=== PATIENT | male | born 1955 | race Caucasian/White ===

== ENCOUNTER 2016-07-26 09:13 | Emergency (ER) | payer MEDICARE ==
[2016-07-26] MEDS ORDERED: LIDOCAINE 2% URO-JET 5 ML SYRINGE UR ONE (11:36)
--- NOTE | 2016-07-26 11:40 | ED Physician Documentation ---
History of Present Illness - Stated complaint Stated Complaint: BACK/LEG PX - Chief complaint Chief Complaint: Back Pain - Additonal information Additional information: hx from pt 60 male prior L spine injury when fell off barn age 10 had work up including MRI and was given spinal injections about a month ago and was doing well recently a week ago slid off bed in his trailer and hit his right SI buttock region an a corner since then pain to that region radiating down posterior leg to the knee now he cannot ruinate since last night no abd pain no saddle anesthesia baseline neuropathy knees down charles but no change no weakness Review of Systems Constitutional: denies: Fever, Chills Cardiac: denies: Chest pain / pressure GI: denies: Abdominal Pain : reports: Unable to Void. denies: Dysuria Musculoskeletal: reports: Back pain Neurologic: reports: Numbness (no change baseline neuropathy). denies: Generalized weakness, Focal weakness Endocrine: denies: Easy bruising / bleeding Immunocompromised: denies: Immunocompromised PD PAST MEDICAL HISTORY - Past Medical History Cardiovascular: Hypertension, High cholesterol, Coronary artery disease Endocrine/Autoimmune: Type 2 diabetes Musculoskeletal: Osteoarthritis - Past Surgical History Ortho: Shoulder arthroplasty Cardiovascular: CABG - Present Medications Home Medications: Ambulatory Orders Medication Instructions Recorded Confirmed Atorvastatin [Lipitor] 10 mg PO DAILY 07/26/16 07/26/16 Hydrochlorothiazide 25 mg PO DAILY 07/26/16 07/26/16 Insulin Glargine,Hum.rec.anlog 10 units SUBQ DAILY 07/26/16 07/26/16 [Lantus] Lidocaine Patch 5% [Lidoderm Patch] 1 each TOP DAILY PRN #10 patch 07/26/16 Lisinopril 10 mg PO BID 07/26/16 07/26/16 Oxycodone HCl 10 mg PO BID 07/26/16 07/26/16 Pantoprazole [Protonix] 40 mg PO DAILY 07/26/16 07/26/16 amLODIPine [Norvasc] 5 mg PO DAILY 07/26/16 07/26/16 metFORMIN [Glucophage] 500 mg PO BID 07/26/16 07/26/16 predniSONE [Deltasone] 40 mg PO DAILY 5 Days 07/26/16 - Allergies Allergies/Adverse Reactions: Allergies Allergy/AdvReac Type Severity Reaction Status Date / Time No Known Drug Allergies Allergy Verified 07/26/16 09:20 - Social History Does the pt smoke?: No Smoking Status: Never smoker Does the pt drink ETOH?: Yes ETOH Use: Beer Does the pt have substance abuse?: No Substance Use and Type: Marijuana - Immunizations Immunizations are current?: Yes PD ED PE NORMAL - Vitals Vital signs reviewed: Yes - General General: Alert and oriented X 3 - HEENT HEENT: Atraumatic, PERRL - Cardiac Cardiac: RRR - Respiratory Respiratory: No respiratory distress, Clear bilaterally - Abdomen Abdomen: Soft, Non tender, Other (no pulsatile mass) - Back Back: No spinal TTP, Other (TTP R SI region, no focal spine TTP swelling or erythema) - Extremities Extremities: No deformity - Neuro Neuro: No motor deficit, No sensory deficit (flex knee ext foot dorsi plantar and great toe ext 5/5, patelar DTR 1+/4 charles, no clonus, neg SLR charles, baseline dec sensation knees down) - Psych Psych: Normal mood Results - Vitals Vitals: Vital Signs - 24 hr 07/26/16 07/26/16 09:17 13:36 Temperature 36.6 C Heart Rate 59 L 55 L Respiratory 14 18 Rate Blood Pressure 105/70 116/75 O2 Saturation 100 100 Oxygen O2 Source Room air - Labs Labs: Laboratory Tests 07/26/16 14:00 Urine Color YELLOW Urine Clarity CLEAR Urine pH 6.0 Ur Specific Jones 1.010 Urine Protein NEGATIVE Urine Glucose (UA) NEGATIVE Urine Ketones NEGATIVE Urine Occult Blood NEGATIVE Urine Nitrite NEGATIVE Urine Bilirubin NEGATIVE Urine Urobilinogen 0.2 (NORMAL) Ur Leukocyte Esterase NEGATIVE Ur Microscopic Review NOT INDICATED Urine Culture Comments NOT INDICATED - Rads (name of study) CT L spine Radiology: See rad report (no acute, 9 mm ant listhesis L45 2/2 charles L4 spondylosis. degen disk and facet dz most severe L45, diffuse disk and facet dz most severe L45, diffuse disk bulging and listhesis results in severe right and mod left L45 foraminal stenosis and mild central canal stenosis, gallstones, ectstic 2.8 cm aorta) CT pelvis Radiology: See rad report (no acute fx, L45 9 mm anterolistehsis with charles L4 pars interarticularis defects with broad based disk bulging causing moderate cenral stenosis ad moderate formaminal norrowing, [id number] midly sclerotic lesion with lucent rim left medial iliac bone without corticol erosion indet and likely benign, degen changes L spine SI jt, pubic symphysis and both hips) PD MEDICAL DECISION MAKING - ED course ED course: MRI not avaial got CT per rad to [place] on CT dc with gonzalez, urology fup, lido patch + home pain meds Departure - Departure Disposition: 01 Home, Self Care Clinical Impression: Urinary retention Back pain Qualifiers: Back pain location: low back pain Chronicity: acute Back pain laterality: right Sciatica presence: with sciatica Sciatica laterality: sciatica of right side Qualified Code(s): M54.41 - Lumbago with sciatica, right side Sciatica Qualifiers: Laterality: right Qualified Code(s): M54.31 - Sciatica, right side Instructions: ED Retention Urinary Male, ED Catheter Care Gonzalez, ED Sciatica Follow-Up: Bry Butt MD [Physician No Access] - (or ask your PMD to give you a referral to a urologist down in [place]) Prescriptions: predniSONE [Deltasone] 40 mg PO DAILY 5 Days Lidocaine Patch 5% [Lidoderm Patch] 1 each TOP DAILY PRN #10 patch PRN Reason: Pain Comments: The CT scans showed extensive degenerative changes, herniated disks, nerve impingement but no major compressions of the cord or nerves in the spinal canal. And there is no pelvic fracture. I am not sure why you cannot urinate But since you cannot urinate I recommend the catheter stay in until you have seen the urologist for further evaluation For the back pain and sciatica I recommend a course of steroids and lidocaine patches in addition to the oxycodone you already take The steroids may cause your blood sugar to run high than normal but this will resolve when you come off the steroids Forms: Activity restrictions Discharge Date/Time: 07/26/16 14:10
--- NOTE | 2016-07-26 12:53 | CT Preliminary Report ---
Exam: CT Pelvis W/O IMPRESSION: 1. No acute fracture. 2. L4-L5 grade 2, 9 mm anterolisthesis with bilateral L4 pars interarticularis defects, with broad-ba sed disk bulging causing moderate central stenosis and moderate foraminal narrowing. 3. There is a 6 x 8 x 8 mm mildly sclerotic lesion with lucent rim in the left medial iliac bone jess cent to the SI joint without cortical erosion, of indeterminate nature although probably benign. 4. Degenerative changes in the lumbar spine, sacroiliac joints, pubic symphysis and both hips. [facility] SITE ID: [id number]
--- NOTE | 2016-07-26 12:56 | CT Report ---
EXAM: CT BONY PELVIS WITHOUT CONTRAST EXAM DATE: 07/26/2016 12:17 PM. CLINICAL HISTORY: Fall. R SI pain, cannot urinate. COMPARISON: None. TECHNIQUE: Thin-section axial images were acquired of the pelvis without contrast. Post-processing: C oronal and sagittal reformats. Other: None. In accordance with CT protocol optimization, one or more of the following dose reduction techniques w ere utilized for this exam: automated exposure control, adjustment of mA and/or KV based on patient s ize, or use of iterative reconstructive technique. FINDINGS: Bones: No acute fracture. L4-L5 grade 2, 9 mm anterolisthesis with bilateral L4 pars interarticularis defects, with broad-based disk bulging causing moderate central stenosis and moderate foraminal narr owing. L4-5 disk space narrowing and chronic reactive endplate changes with extensive sclerosis. Ther e is a 6 x 8 x 8 mm mildly sclerotic lesion with lucent rim in the left medial iliac bone adjacent to the SI joint without cortical erosion, of indeterminate nature although probably benign. Sacroiliac Joints: Bilateral mild degenerative changes with a small air-containing cyst in the iliac side of the cortex. No widening or significant joint effusion. Symphysis Pubis: Mild degenerative changes. Right Hip: Mild osteoarthritis with mild joint space narrowing. Left Hip: Mild osteoarthritis with mild joint space narrowing. Musculature: Normal. No fatty atrophy. Pelvic Cavity: The visualized bowel, bladder, and reproductive organs are unremarkable on this noncon trast exam. Jean catheter in situ. Other: No lymphadenopathy. No free air or free fluid. The other visualized soft tissues are unremarka ble. IMPRESSION: 1. No acute fracture. 2. L4-L5 grade 2, 9 mm anterolisthesis with bilateral L4 pars interarticularis defects, with broad-ba sed disk bulging causing moderate central stenosis and moderate foraminal narrowing. 3. There is a 6 x 8 x 8 mm mildly sclerotic lesion with lucent rim in the left medial iliac bone jess cent to the SI joint without cortical erosion, of indeterminate nature although probably benign. 4. Degenerative changes in the lumbar spine, sacroiliac joints, pubic symphysis and both hips. [facility] Referring Provider Line: [phone] SITE ID: [id number]
--- NOTE | 2016-07-26 12:57 | CT Preliminary Report ---
Exam: CT Lumbar Spine W/O IMPRESSION: 1. No definite acute abnormality. 2. 9 mm anterior listhesis at L4-L5 secondary to bilateral L4 spondylolysis. 3. Degenerative disk and facet disease, most severe at L4-L5. 4. Diffuse disk bulging/uncovering and the listhesis results in severe right and moderate to severe l eft L4-L5 neural foraminal stenosis and mild central canal stenosis. 5. Cholelithiasis. 6. Infrarenal abdominal aortic ectasia, 2.8 cm. [facility] SITE ID: [id number]
--- NOTE | 2016-07-26 13:00 | CT Report ---
EXAM: CT LUMBAR SPINE WITHOUT CONTRAST EXAM DATE: 07/26/2016 12:17 PM. CLINICAL HISTORY: Fall back pain urinary retention. COMPARISONS: None. TECHNIQUE: Thin-section axial images were acquired of the lumbar spine from T12 to S1 without contras t. Post-processing: Coronal and sagittal reformats. Other: None. In accordance with CT protocol optimization, one or more of the following dose reduction techniques w ere utilized for this exam: automated exposure control, adjustment of mA and/or KV based on patient s ize, or use of iterative reconstructive technique. FINDINGS: Alignment: No scoliosis. 9 mm anterolisthesis at L4-L5 associated with chronic bilateral spondylolysi s. Bones: Five yem-yha-pwspwwl lumbar vertebral bodies are present. Bilateral L4 spondylolysis. No acute fractures or definite acute bone lesions. 9 mm sclerotic nodule within the posterior right T12 verte bral body may represent incidental finding such as a bone island although it is not specific. If ther e were history of primary malignancy or other reason for clinical concern, bone scan imaging or MR im aging would be recommended. Disk Levels/Facets: Severe L4-L5 disk space narrowing and substantial associated degenerative endplate change and vertebr al body spurring. Broad disk bulging and calcification and disk uncovering with associated listhesis results in severe right and moderate to severe left neural foraminal stenosis and mild central canal stenosis. Mild disk bulging at L5-S1. Olxc-ah-bijrxdmq L2-3 vertebral body spurring. Degenerative/hypertrophic facet disease, greatest at L3-L4 and L4-L5. L5-S1: Unremarkable. Musculature: Normal. No fatty atrophy. Other: Substantial aortic and arterial atherosclerotic calcifications. Proximal, infrarenal abdominal aortic ectasia, maximum diameter 2.8 cm. Cholelithiasis demonstrated. Colonic diverticulosis without evidence of diverticulitis. IMPRESSION: 1. No definite acute abnormality. 2. 9 mm anterior listhesis at L4-L5 secondary to bilateral L4 spondylolysis. 3. Degenerative disk and facet disease, most severe at L4-L5. 4. Diffuse disk bulging/uncovering and the listhesis results in severe right and moderate to severe l eft L4-L5 neural foraminal stenosis and mild central canal stenosis. 5. Cholelithiasis. 6. Infrarenal abdominal aortic ectasia, 2.8 cm. [facility] Referring Provider Line: [phone] SITE ID: [id number]
[2016-07-26 13:36] VITALS: BP 116/75
[2016-07-26 14:20] LABS: BILIRUBIN,URINE NEGATIVE (NEGATIVE)
[2016-07-26 14:23] LABS: UA CHARGE (STRIP ONLY) YES; UR CULTURE IF IND NOT INDICATED
== END 2016-07-26 14:10 | disposition home or self-care (01) ==
LOC: ED 09:13
DX: R33.9 Retention of urine, unspecified (principal); M54.41 Lumbago with sciatica, right side; I10 Essential (primary) hypertension; E78.00 Pure hypercholesterolemia, unspecified; I25.10 Atherosclerotic heart disease of native coronary artery without angina pectoris; E11.9 Type 2 diabetes mellitus without complications; Z79.4 Long term (current) use of insulin; Z79.84 Long term (current) use of oral hypoglycemic drugs; M19.90 Unspecified osteoarthritis, unspecified site
CPT/HCPCS: 51702; 51798; 72131; 72192; 81001; 81003; 87086; 99283; 99284

== ENCOUNTER 2017-07-17 10:26 | Outpatient (CLI) | payer MEDICARE ==
[2017-07-17 12:41] LABS: BASOPHILS # (AUTO) 0.1 10^3/uL (0.0-0.1); BASOPHILS % (AUTO) 1.3 %; EOSINOPHILS # (AUTO) 0.3 10^3/uL (0.0-0.7); HGB - HEMOGLOBIN 13.2 g/dL (14.0-18.0); LYMPHOCYTES # (AUTO) 1.4 10^3/uL (1.5-3.5); LYMPHOCYTES % (AUTO) 20.4 %; MEAN CORPUSCULAR HEMOGLOBIN 30.8 pg (27.0-31.0); MEAN CORPUSCULAR HGB CONC 34.1 g/dL (32.0-36.0); MEAN CORPUSCULAR VOLUME 90.2 fL (80.0-94.0); MEAN PLATELET VOLUME 8.3 fL (7.4-11.4); MONOCYTES # (AUTO) 0.5 10^3/uL (0.0-1.0); MONOCYTES % (AUTO) 7.4 %; NEUTROPHILS # (AUTO) 4.4 10^3/uL (1.5-6.6); NEUTROPHILS % (AUTO) 65.9 %; PLT - PLATELET COUNT 152 10^3/uL (130-450); RED CELL DISTRIBUTION WIDTH 12.8 % (12.0-15.0); WHITE BLOOD COUNT 6.6 x10^3/uL (4.8-10.8)
[2017-07-17 14:30] LABS: ALBUMIN 4.4 g/dL (3.2-5.5); ALBUMIN/GLOBULIN RATIO 1.7 (1.0-2.2); BILIRUBIN,TOTAL 0.6 mg/dL (0.2-1.0); CALCIUM 8.9 mg/dL (8.5-10.3); CREATININE 1.1 mg/dL (0.6-1.2)
== END 2017-07-17 10:27 | disposition home or self-care (01) ==
LOC: LAB.WCP 10:26
PROVIDERS: ATTEND Family Medicine
DX: R10.9 Unspecified abdominal pain (principal)
CPT/HCPCS: 36415; 80053; 85025; 87086

== ENCOUNTER 2017-07-18 09:03 | Outpatient (CLI) | payer MEDICARE ==
--- NOTE | 2017-07-19 15:06 | CT Report ---
EXAM: CT LUMBAR SPINE WITHOUT CONTRAST EXAM DATE: 07/18/2017 09:19 AM. CLINICAL HISTORY: Pseudomonas. Possible stenosis. History of back surgery. Low back pain prevents the patient from having an MRI. COMPARISONS: 07/26/2016 CT. TECHNIQUE: Thin-section axial images were acquired of the lumbar spine from T12 to S1 without contras t. Post-processing: Coronal and sagittal reformats. Other: None. In accordance with CT protocol optimization, one or more of the following dose reduction techniques w ere utilized for this exam: automated exposure control, adjustment of mA and/or KV based on patient s ize, or use of iterative reconstructive technique. FINDINGS: Alignment: Grade 1 anterolisthesis of L4 on L5 measures 5 mm. Bones: Five zva-aqs-ygtruvt lumbar vertebral bodies are present. No fractures. Since the prior examin ation, the patient has had an anterior and posterior fusion procedure at L4-L5 with paired posterior rods and bilateral pedicle screws, as well as an intervertebral disk spacer. There is bony union thro ugh both posterior elements, and bone formation within the L4 disk space is near completely bridging. Disk Levels/Facets: T12-L1: Unremarkable. L1-L2: Unremarkable. L2-L3: Anterior endplate spurring is present. Small foraminal area protrusions result in mild bilater al foraminal narrowing. A broad-based disk bulge results in mild spinal canal narrowing. L3-L4: A broad-based disk bulge, mild ligamentum flavum hypertrophy, and severe facet hypertrophy res ults in moderate spinal canal and moderate bilateral foraminal narrowing. L4-L5: The patient has had a laminectomy. Foraminal area protrusions result in mild to moderate bilat eral foraminal narrowing, improved compared to the prior examination. The disk height has improved co mpared to the prior examination. There is no longer spinal canal narrowing. L5-S1: Anterior endplate spurring is present. A posterior disk protrusion and mild facet hypertrophy result in mild spinal canal and mild to moderate bilateral foraminal narrowing. Musculature: Normal. No fatty atrophy. Other: Arterial calcifications indicate atherosclerosis. IMPRESSION: 1. Grade 1 anterolisthesis of L4 on L5. 2. Interval fusion procedure at L4-L5 with bony union. The disk height has improved and spinal canal narrowing has resolved. The mild to moderate bilateral foraminal narrowing at this level has also imp roved. 3. Mild bilateral foraminal and spinal canal narrowing at L2-L3 due to disk pathology. 4. Moderate spinal canal and bilateral foraminal narrowing at L3-L4 due to disk and posterior element degenerative changes. 5. Mild spinal canal and mild to moderate bilateral foraminal narrowing at L5-S1 due to disk and post erior element degenerative changes. [facility] Referring Provider Line: [phone] SITE ID: [id number]
== END 2017-07-18 09:04 | disposition home or self-care (01) ==
LOC: DI 09:03
PROVIDERS: ATTEND Orthopaedic Surgery Orthopaedic Surgery of the Spine
DX: M48.061 Spinal stenosis, lumbar region without neurogenic claudication (principal); M51.86 Other intervertebral disc disorders, lumbar region
CPT/HCPCS: 72131

== ENCOUNTER 2017-11-09 16:27 | Emergency (ER) | payer MEDICARE ==
[2017-11-09] MEDS ORDERED: HYDROmorphone 1 MG/ML CARPUJECT IM STA (17:12)
[2017-11-09] MEDS ORDERED: oxyCODONE/ACET 5/325 Prepack 4 PO STA (17:12)
--- NOTE | 2017-11-09 17:16 | ED Physician Documentation ---
PD HPI BACK INJURY - Stated complaint Stated Complaint: R LEG PAIN - History obtained from History obtained from: Patient, Family - History of Present Illness Location: Lower (62-year-old gentleman with chronic back pain, history of lumbar fusion had EMG testing for right lower extremity pain the other day and after the EMG had increased pain in the thigh and he cannot get comfortable. Also low back pain. No saddle anesthesia or incontinence or fevers.) Review of Systems Constitutional: denies: Fever, Chills Respiratory: denies: Dyspnea, Cough GI: denies: Abdominal Pain, Nausea, Vomiting : denies: Dysuria PD PAST MEDICAL HISTORY - Past Medical History Cardiovascular: Hypertension, High cholesterol, Coronary artery disease Endocrine/Autoimmune: Type 2 diabetes Musculoskeletal: Osteoarthritis - Past Surgical History Ortho: Shoulder arthroplasty Cardiovascular: CABG - Present Medications Home Medications: Ambulatory Orders Medication Instructions Recorded Confirmed Atorvastatin [Lipitor] 10 mg PO DAILY 07/26/16 07/26/16 Insulin Glargine,Hum.rec.anlog 10 units SUBQ DAILY 07/26/16 07/26/16 [Lantus] Lidocaine Patch 5% [Lidoderm Patch] 1 each TOP DAILY PRN #10 patch 07/26/16 Lisinopril 10 mg PO BID 07/26/16 07/26/16 Oxycodone HCl 10 mg PO BID 07/26/16 07/26/16 Pantoprazole [Protonix] 40 mg PO DAILY 07/26/16 07/26/16 amLODIPine [Norvasc] 5 mg PO DAILY 07/26/16 07/26/16 hydroCHLOROthiazide 25 mg PO DAILY 07/26/16 07/26/16 [Hydrochlorothiazide] metFORMIN [Glucophage] 500 mg PO BID 07/26/16 07/26/16 predniSONE [Deltasone] 40 mg PO DAILY 5 Days tablet 07/26/16 Oxycodone HCl/Acetaminophen 1 - 2 each PO Q6H PRN #14 tablet 11/09/17 [Percocet 5-325 mg Tablet] - Allergies Allergies/Adverse Reactions: Allergies Allergy/AdvReac Type Severity Reaction Status Date / Time No Known Drug Allergies Allergy Verified 11/09/17 16:50 - Social History Does the pt smoke?: No Smoking Status: Never smoker Does the pt drink ETOH?: Yes Does the pt have substance abuse?: No - Immunizations Immunizations are current?: Yes PD ED PE NORMAL - Vitals Vital signs reviewed: Yes - General General: Alert and oriented X 3, No acute distress - Extremities Extremities: Other (Pretty much absent right L4 reflex, left L4 reflexes diminished but not quite absent. He is hyperesthetic over the right lateral calf otherwise sensation throughout the legs is normal. No spinal tenderness.) - Neuro Neuro: Alert and oriented X 3, Normal speech Results - Vitals Vitals: Vital Signs - 24 hr 11/09/17 16:45 Temperature 36.8 C Heart Rate 63 Respiratory 16 Rate Blood Pressure 135/83 H O2 Saturation 97 Oxygen O2 Source Room air PD MEDICAL DECISION MAKING - Sepsis Event Vital Signs: Vital Signs - 24 hr 11/09/17 16:45 Temperature 36.8 C Heart Rate 63 Respiratory 16 Rate Blood Pressure 135/83 H O2 Saturation 97 Oxygen O2 Source Room air Departure - Departure Disposition: 01 Home, Self Care Clinical Impression: Sciatica Qualifiers: Laterality: right Qualified Code(s): M54.31 - Sciatica, right side Condition: Fair Record reviewed to determine appropriate education?: Yes Instructions: ED Sciatica Prescriptions: Oxycodone HCl/Acetaminophen [Percocet 5-325 mg Tablet] 1 - 2 each PO Q6H PRN # 14 tablet PRN Reason: pain Comments: Call your doctor to arrange a follow-up appointment, make the next available appointment. In the interim, return anytime if worse or if new symptoms develop.
[2017-11-09 18:01] VITALS: BP 102/80
== END 2017-11-09 17:59 | disposition home or self-care (01) ==
LOC: ED 16:27
DX: M54.31 Sciatica, right side (principal); G89.29 Other chronic pain; Z98.1 Arthrodesis status; I25.10 Atherosclerotic heart disease of native coronary artery without angina pectoris; I10 Essential (primary) hypertension; E78.00 Pure hypercholesterolemia, unspecified; E11.9 Type 2 diabetes mellitus without complications; Z79.4 Long term (current) use of insulin; Z95.1 Presence of aortocoronary bypass graft
CPT/HCPCS: 96372; 99283; J1170

== ENCOUNTER 2018-06-29 08:15 | Outpatient (CLI) | payer MEDICARE ==
[2018-06-29 08:54] LABS: CREATININE 1.3 mg/dL (0.6-1.2)
[2018-06-29 08:59] LABS: BASOPHILS # (AUTO) 0.1 10^3/uL (0.0-0.1); BASOPHILS % (AUTO) 1.7 %; EOSINOPHILS # (AUTO) 0.3 10^3/uL (0.0-0.7); EOSINOPHILS % (AUTO) 6.3 %; HGB - HEMOGLOBIN 13.9 g/dL (14.0-18.0); LYMPHOCYTES % (AUTO) 18.4 %; MEAN CORPUSCULAR HEMOGLOBIN 31.7 pg (27.0-31.0); MEAN CORPUSCULAR HGB CONC 34.4 g/dL (32.0-36.0); MEAN PLATELET VOLUME 8.3 fL (7.4-11.4); MONOCYTES # (AUTO) 0.5 10^3/uL (0.0-1.0); MONOCYTES % (AUTO) 8.4 %; NEUTROPHILS # (AUTO) 3.6 10^3/uL (1.5-6.6); NEUTROPHILS % (AUTO) 65.2 %; PLT - PLATELET COUNT 170 10^3/uL (130-450); RED BLOOD COUNT 4.39 10^6/uL (4.70-6.10); RED CELL DISTRIBUTION WIDTH 13.1 % (12.0-15.0); WHITE BLOOD COUNT 5.5 x10^3/uL (4.8-10.8)
[2018-06-29 09:02] LABS: PT - PROTHROMBIN TIME 10.7 secs (9.9-12.6)
[2018-06-29 09:03] LABS: HB2 TOTAL 15.7 g/dL; HEMOGLOBIN A1C 2.15 g/dL; HEMOGLOBIN A1C % 14.7 % (4.6-6.2)
== END 2018-06-29 08:16 | disposition home or self-care (01) ==
LOC: LAB 08:15
PROVIDERS: ATTEND Orthopaedic Surgery Orthopaedic Surgery of the Spine
DX: M54.16 Radiculopathy, lumbar region (principal); M48.062 Spinal stenosis, lumbar region with neurogenic claudication; M43.16 Spondylolisthesis, lumbar region; E11.9 Type 2 diabetes mellitus without complications; I44.7 Left bundle-branch block, unspecified
CPT/HCPCS: 36415; 80048; 83036; 85025; 85610; 93005

== ENCOUNTER 2018-07-27 15:35 | Emergency (ER) | payer MEDICARE ==
[2018-07-27] MEDS ORDERED: HYDROmorphone 1 MG/ML CARPUJECT IM STA (16:09)
[2018-07-27] MEDS ORDERED: KETOROLAC 30 MG/ML VIAL IM STA (16:10)
[2018-07-27 16:17] LABS: BILIRUBIN,URINE NEGATIVE (NEGATIVE); GLUCOSE, URINE (UA) >=1000 mg/dL (NEGATIVE); KETONES,URINE (UA) NEGATIVE (NEGATIVE); LEUKOCYTE ESTERASE, URINE NEGATIVE (NEGATIVE); NITRITE,URINE NEGATIVE (NEGATIVE); OCCULT BLOOD,URINE NEGATIVE (NEGATIVE); PROTEIN,URINE NEGATIVE (NEGATIVE); UROBILINOGEN,URINE 0.2 (NORMAL) E.U./dL (NORMAL)
[2018-07-27 16:22] LABS: CLARITY,URINE CLEAR (CLEAR)
[2018-07-27] MEDS ORDERED: HYDROmorphone 1 MG/ML CARPUJECT IVP STA ×2 (16:23→17:27)
[2018-07-27] MEDS ORDERED: KETOROLAC 30 MG/ML VIAL IVP STA (16:24)
[2018-07-27 16:33] LABS: BASOPHILS # (AUTO) 0.1 10^3/uL (0.0-0.1); BASOPHILS % (AUTO) 1.2 %; EOSINOPHILS # (AUTO) 0.3 10^3/uL (0.0-0.7); EOSINOPHILS % (AUTO) 6.8 %; LYMPHOCYTES # (AUTO) 1.3 10^3/uL (1.5-3.5); LYMPHOCYTES % (AUTO) 26.5 %; MEAN CORPUSCULAR HEMOGLOBIN 31.9 pg (27.0-31.0); MEAN CORPUSCULAR HGB CONC 34.4 g/dL (32.0-36.0); MEAN CORPUSCULAR VOLUME 92.7 fL (80.0-94.0); MEAN PLATELET VOLUME 7.6 fL (7.4-11.4); MONOCYTES # (AUTO) 0.3 10^3/uL (0.0-1.0); MONOCYTES % (AUTO) 6.5 %; PLT - PLATELET COUNT 176 10^3/uL (130-450); RED BLOOD COUNT 4.08 10^6/uL (4.70-6.10); RED CELL DISTRIBUTION WIDTH 12.8 % (12.0-15.0); WHITE BLOOD COUNT 5.1 x10^3/uL (4.8-10.8)
[2018-07-27 16:45] LABS: ALBUMIN 4.1 g/dL (3.2-5.5); ALBUMIN/GLOBULIN RATIO 1.6 (1.0-2.2); ALKALINE PHOSPHATASE 45 IU/L (42-121); ALT ALANINE AMINOTRANSFERASE 19 IU/L (10-60); AST ASPARTATE AMINOTRANSFERASE 25 IU/L (10-42); BILIRUBIN,TOTAL 0.8 mg/dL (0.2-1.0); BUN - BLOOD UREA NITROGEN 14 mg/dL (6-20); CALCIUM 8.9 mg/dL (8.5-10.3); CARBON DIOXIDE - CO2 26 mmol/L (21-32); CHLORIDE 97 mmol/L (101-111); CREATININE 1.1 mg/dL (0.6-1.2); GFR - MDRD 67 (>89); GLUCOSE 324 mg/dL (70-100); LIPASE 108 U/L (22-51); MAGNESIUM 1.9 mg/dL (1.7-2.8); SODIUM 134 mmol/L (135-145); TOTAL PROTEIN 6.7 g/dL (6.7-8.2)
--- NOTE | 2018-07-27 16:51 | ED Physician Documentation ---
PD HPI Fall - Stated complaint Stated Complaint: BACK PAIN/FALLING ASLEEP - Chief complaint Chief Complaint: General - History obtained from History obtained from: Patient, Family - History of Present Illness Mechanism of injury: Lost balance (when he stepped in a hole. Not aware of striking head. Pain in right hip on which he landed, and increased pain over baseline in low back, where he has chronic pain.). No: Syncope Fall distance: Standing position Where injury occurred: Home Timing - onset: How many days ago (2) Injury(ies) location: Back, Right Lower Extremity (lateral and posterior hip). No: Head, Chest, Abdomen Quality of pain: Throbbing, Aching Associated symptoms: AMS ( says he has been sleepy and "lethargic" (tired) the past couple of days. he denies headache.). No: LOC, Neck pain, Weakness, Paresthesias, Dyspnea Symptoms improve with: Rest Worsens with: Movement Contributing factors: No: Anticoagulated Similar symptoms before: Diagnosis (He does have history of chronic low back pain and is due for lumbar fusion of some sort by a back specialist in [place]. It was to be early this month but was delayed till next month because of high blood sugars. He has resumed insulin in addition to his usual metformin and is having titrating/increasing doses of insulin by his primary care to get better glucose control. He has had ongoing low back pain with 2 prior fusions. He has had occasional right hip pain from arthritis but no chronic pain.) Recently seen: Clinic (Seen in the clinic for blood sugar control and had resumption of insulin that is taken twice a day at 12 units.) Review of Systems Constitutional: denies: Fever, Chills Nose: denies: Rhinorrhea / runny nose, Congestion Throat: denies: Sore throat Cardiac: denies: Chest pain / pressure Respiratory: denies: Dyspnea, Cough : denies: Dysuria, Frequency Skin: denies: Abrasion (s), Laceration (s) Musculoskeletal: reports: Back pain. denies: Neck pain Neurologic: reports: Altered mental status (sleepier and general weakness for couple days.). denies: Focal weakness, Numbness, Confused, Headache PD PAST MEDICAL HISTORY - Past Medical History Past Medical History: Yes Cardiovascular: Hypertension, High cholesterol, Coronary artery disease Respiratory: None Neuro: None Endocrine/Autoimmune: Type 2 diabetes GI: None : None HEENT: None Psych: None Musculoskeletal: Osteoarthritis Derm: None - Past Surgical History Past Surgical History: Yes Ortho: Shoulder arthroplasty Cardiovascular: CABG - Present Medications Home Medications: Ambulatory Orders Medication Instructions Recorded Confirmed Atorvastatin [Lipitor] 10 mg PO DAILY 07/26/16 07/26/16 amLODIPine [Norvasc] 5 mg PO DAILY 07/26/16 07/27/18 metFORMIN [Glucophage] 500 mg PO BID 07/26/16 07/27/18 Oxycodone HCl/Acetaminophen 1 - 2 each PO Q6H PRN #14 tablet 11/09/17 [Percocet 5-325 mg Tablet] Gabapentin [Neurontin] 1 tab ORAL TID 07/27/18 07/27/18 Naproxen 375 mg PO BID #20 tablet 07/27/18 Oxycodone HCl/Acetaminophen 1 each PO TID PRN #20 tablet 07/27/18 [Percocet 7.5-325 mg Tablet] - Allergies Allergies/Adverse Reactions: Allergies Allergy/AdvReac Type Severity Reaction Status Date / Time No Known Drug Allergies Allergy Verified 07/27/18 15:41 - Social History Does the pt smoke?: No Smoking Status: Never smoker Does the pt drink ETOH?: Yes Does the pt have substance abuse?: No - Immunizations Immunizations are current?: Yes - POLST Patient has POLST: No PD ED PE NORMAL - Vitals Vital signs reviewed: Yes - General General: Alert and oriented X 3, No acute distress, Well developed/nourished - HEENT HEENT: Atraumatic, Moist mucous membranes, Pharynx benign - Neck Neck: Supple, no meningeal sign, No adenopathy, No JVD - Cardiac Cardiac: RRR, No murmur - Respiratory Respiratory: No respiratory distress, Clear bilaterally - Abdomen Abdomen: Normal bowel sounds, Soft, Non tender - Derm Derm: Normal color, Warm and dry - Extremities Extremities: No deformity, No edema, No calf tenderness / cord, Other (He has some tenderness in the mid line area of the lower back and also on the right para lumbar muscles. There is some tenderness in the gluteal and SI joint here in the right pelvis. There is no tenderness in the anterior part of the hip joint and no pain with impaction or rotation. Lower extremities show decreased sensation on both legs diffusely consistent with neuropathy. There is no edema noted. There is no muscle weakness at the ankles or knees.) - Neuro Neuro: Alert and oriented X 3, charge entry 2-12 intact, No motor deficit, Normal speech Eye Opening: Spontaneous Motor: Obeys Commands Verbal: Oriented GCS Score: 15 - Psych Psych: Normal mood, Normal affect Results - Vitals Vitals: Vital Signs - 24 hr 07/27/18 07/27/18 07/27/18 15:37 17:53 18:37 Temperature 36.5 C 97.9 C H Heart Rate 56 L 60 61 Respiratory 14 16 16 Rate Blood Pressure 142/89 H 133/90 H 137/76 H O2 Saturation 99 96 97 Oxygen O2 Source Room air - Labs Labs: Laboratory Tests 07/27/18 07/27/18 07/27/18 16:12 16:24 16:24 WBC 5.1 RBC 4.08 L Hgb 13.0 L Hct 37.8 L MCV 92.7 MCH 31.9 H MCHC 34.4 RDW 12.8 Plt Count 176 MPV 7.6 Neut # (Auto) 3.0 Lymph # (Auto) 1.3 L Rock # (Auto) 0.3 Eos # (Auto) 0.3 Baso # (Auto) 0.1 Absolute Nucleated RBC 0.00 Nucleated RBC % 0.1 VBG pH VBG pCO2 VBG pO2 VBG HCO3 VBG Total CO2 VBG O2 Saturation VBG Base Excess Sodium 134 L Potassium 4.7 Chloride 97 L Carbon Dioxide 26 Anion Gap 11.0 BUN 14 Creatinine 1.1 Estimated GFR (MDRD) 67 L Glucose 324 H Calcium 8.9 Magnesium 1.9 Total Bilirubin 0.8 AST 25 ALT 19 Alkaline Phosphatase 45 Total Protein 6.7 Albumin 4.1 Globulin 2.6 Albumin/Globulin Ratio 1.6 Lipase 108 H Urine Color YELLOW Urine Clarity CLEAR Urine pH 7.0 Ur Specific [place] <=1.005 Urine Protein NEGATIVE Urine Glucose (UA) >=1000 H Urine Ketones NEGATIVE Urine Occult Blood NEGATIVE Urine Nitrite NEGATIVE Urine Bilirubin NEGATIVE Urine Urobilinogen 0.2 (NORMAL) Ur Leukocyte Esterase NEGATIVE Ur Microscopic Review NOT INDICATED Urine Culture Comments NOT INDICATED Serum Ketones NEGATIVE 07/27/18 17:15 WBC RBC Hgb Hct MCV MCH MCHC RDW Plt Count MPV Neut # (Auto) Lymph # (Auto) Rock # (Auto) Eos # (Auto) Baso # (Auto) Absolute Nucleated RBC Nucleated RBC % VBG pH 7.401 VBG pCO2 44.9 VBG pO2 71.9 H VBG HCO3 27.3 VBG Total CO2 28.6 VBG O2 Saturation 94.8 H VBG Base Excess 2.0 Sodium Potassium Chloride Carbon Dioxide Anion Gap BUN Creatinine Estimated GFR (MDRD) Glucose Calcium Magnesium Total Bilirubin AST ALT Alkaline Phosphatase Total Protein Albumin Globulin Albumin/Globulin Ratio Lipase Urine Color Urine Clarity Urine pH Ur Specific [place] Urine Protein Urine Glucose (UA) Urine Ketones Urine Occult Blood Urine Nitrite Urine Bilirubin Urine Urobilinogen Ur Leukocyte Esterase Ur Microscopic Review Urine Culture Comments Serum Ketones - Rads (name of study) head CT Radiology: Prelim report reviewed (no ICH, no acute findings. Diffuse white matter disease. ), See rad report lumbar and pelvic CT Radiology: Prelim report reviewed (prior surgical changes. No noted new injuries. ), See rad report PD MEDICAL DECISION MAKING - ED course Complexity details: reviewed results, re-evaluated patient (improved pain with IV meds. ), considered differential, d/w patient, d/w family Departure - Departure Disposition: 01 Home, Self Care Clinical Impression: Acute exacerbation of chronic low back pain, Hyperglycemia Fall from slip, trip, or stumble Qualifiers: Encounter type: initial encounter Qualified Code(s): W01.0XXA - Fall on same level from slipping, tripping and stumbling without subsequent striking against object, initial encounter Contusion, hip Qualifiers: Encounter type: initial encounter Laterality: right Qualified Code(s): S70.01XA - Contusion of right hip, initial encounter Altered mental status Qualifiers: Altered mental status type: somnolence Qualified Code(s): R40.0 - Somnolence Condition: Stable Record reviewed to determine appropriate education?: Yes Instructions: ED Low Back Pain Injury, ED Contusion Back Follow-Up: Lisa Knutson DO [Primary Care Provider] - Prescriptions: Naproxen 375 mg PO BID #20 tablet Oxycodone HCl/Acetaminophen [Percocet 7.5-325 mg Tablet] 1 each PO TID PRN #20 tablet PRN Reason: Pain Comments: Continue usual medications. Exception would be to increase your insulin dosing from the current 12 units twice a day up to 15 units twice a day. Continue diabetic diet of no concentrated sweets. Your CT scan of head low back and pelvis did not show any acute abnormalities. You can still be having increased pain over your baseline level in your low back related to the recent fall. There may be some inflammation component so try naproxen anti-inflammatory twice daily for the next 7 to 10 days with food. Add oxycodone as needed for pain for the short-term. Follow-up with your primary care regarding ongoing medication and also continued treatment regimen for your diabetes. Discharge Date/Time: 07/27/18 18:43
[2018-07-27 16:58] LABS: KETONES, SERUM (ACETEST) NEGATIVE (NEGATIVE)
[2018-07-27 17:24] LABS: VBG PCO2 44.9 mmHg (41-51); VBG PH 7.401 (7.31-7.41); VBG PO2 71.9 mmHg (25-47)
[2018-07-27 17:25] LABS: VBG TOTAL CO2 28.6 mmol/L (24-29)
[2018-07-27] MEDS ORDERED: SODIUM CHLORIDE 0.9% 1,000 ML IV ONE (17:27)
--- NOTE | 2018-07-27 17:42 | CT Report ---
Reason: lethargic at times today; fall couple days ago Procedure Date: 07/27/2018 Accession Number: [id number] / [id number] Procedure: CT - HEAD WO CPT Code: FULL RESULT: EXAM: CT HEAD EXAM DATE: 07/27/2018 04:54 PM. CLINICAL HISTORY: Lethargic at times today; fall couple days ago. COMPARISON: None. TECHNIQUE: Multiaxial CT images were obtained from the foramen magnum to the vertex. Reformats: Sagittal and coronal. IV contrast: None. In accordance with CT protocol optimization, one or more of the following dose reduction techniques were utilized for this exam: automated exposure control, adjustment of mA and/or KV based on patient size, or use of iterative reconstructive technique. FINDINGS: Parenchyma: No intraparenchymal hemorrhage. No evidence of mass, midline shift, or CT findings of infarction. [place]-white differentiation is distinct. Nonspecific periventricular white matter changes. Extraaxial Spaces: Normal for age. No subdural or epidural collections identified. Ventricles: Normal in size and position. Sinuses and Orbits: Imaged paranasal sinuses, orbits, and mastoids show no significant abnormality. Bones: No evidence of fracture or calvarial defect. Other: None. IMPRESSION: Nonspecific periventricular white matter changes are likely chronic microvascular ischemic disease. No acute intracranial abnormality. RADIA
--- NOTE | 2018-07-27 17:50 | CT Report ---
Reason: fall couple days ago; pain low back and right hip Procedure Date: 07/27/2018 Accession Number: [id number] / [id number] Procedure: CT - PELVIS WO CPT Code: FULL RESULT: EXAM: CT BONY PELVIS WITHOUT CONTRAST EXAM DATE: 07/27/2018 04:54 PM. CLINICAL HISTORY: Fall couple days ago; pain low back and right hip. COMPARISON: LUMBAR SPINE W/O 07/18/2017 9:13 AM. TECHNIQUE: Thin-section axial images were acquired of the pelvis without contrast. Post-processing: Coronal and sagittal reformats. Other: None. In accordance with CT protocol optimization, one or more of the following dose reduction techniques were utilized for this exam: automated exposure control, adjustment of mA and/or KV based on patient size, or use of iterative reconstructive technique. FINDINGS: Bones: No fracture or bone lesion. Bilateral L4 and bilateral L5 pedicle fixation screws with posterior fixation hardware. Interbody fusion L4-L5 with spacers and bone graft. Anterolisthesis 7 mm L4 and L5. Wide laminectomy defect L4-L5. Moderate bilateral L5-S1 foraminal stenosis. Remote 1 cm fracture anterior superior right acetabulum. Sacroiliac Joints: No widening, erosions, or sclerosis. Symphysis Pubis: Unremarkable. Right Hip: Mild degenerative changes right hip. Left Hip: Mild degenerative changes left hip. Musculature: Normal. No fatty atrophy. Calcification of the proximal hamstring tendons bilaterally. Spurring or enthesopathy ischial tuberosities. Narrowing of the ischial femoral spaces. Low lumbar and sacrum posterior paraspinal muscle atrophy with fatty replacement. Pelvic Cavity: Nondistended bladder. Normal size prostate. Pelvic cul-de-sac is free of fluid. Negative for adenopathy. Other: No lymphadenopathy. No free air or free fluid. The other visualized soft tissues are unremarkable. IMPRESSION: Negative for subacute fracture. RADIA
--- NOTE | 2018-07-27 18:05 | CT Report ---
Reason: fall couple days ago; pain low back and right hip Procedure Date: 07/27/2018 Accession Number: [id number] / [id number] Procedure: CT - LUMBAR SPINE WO CPT Code: FULL RESULT: EXAM: CT LUMBAR SPINE WITHOUT CONTRAST EXAM DATE: 07/27/2018 04:54 PM. CLINICAL HISTORY: Fall couple days ago; pain low back and right hip. COMPARISONS: LUMBAR SPINE W/O 07/18/2017 9:13 AM. TECHNIQUE: Thin-section axial images were acquired of the lumbar spine from T12 to S1 without contrast. Post-processing: Coronal and sagittal reformats. Other: None. In accordance with CT protocol optimization, one or more of the following dose reduction techniques were utilized for this exam: automated exposure control, adjustment of mA and/or KV based on patient size, or use of iterative reconstructive technique. FINDINGS: Alignment: Anterolisthesis 8 mm L4 and L5. Bones: Five [id number] lumbar vertebral bodies are present. No fractures or bone lesions. Disk Levels/Facets: T12-L1: Unremarkable. L1-L2: Diffuse disk bulge. Negative for spinal canal stenosis or foraminal stenosis. Mild facet joint arthrosis. L2-L3: Diffuse disk bulge. Mild bilateral foraminal stenosis. Mild central spinal canal stenosis. Mild disk degeneration. L3-L4: Moderate facet joint arthrosis. Mild bilateral foraminal stenosis from diffuse disk bulge. Moderate spinal canal stenosis posterior element hypertrophy. L4-L5: Bilateral L4 and bilateral L5 pedicle fixation screws with posterior fixation hardware. Interbody fusion with a spacer and solid bone graft. Wide laminectomy defect. Negative for spinal canal stenosis. Negative for bony or foraminal stenosis. L5-S1: Posterior 2 mm disk protrusion. Bilateral foraminal stenosis. Preservation of disk height. Musculature: Normal. No fatty atrophy. Other: The visualized retroperitoneum is unremarkable. IMPRESSION: 1. Negative for fracture. 2. Negative for interval change as compared to the CT lumbar spine 07/18/2017. 3. Stable bilateral L4 and L5 pedicle fixation screws with posterior fixation hardware, posterior bone graft osseous fusion, interbody fusion and wide laminectomy. 4. Moderate spinal canal stenosis and mild bilateral foraminal stenosis L3-L4. 5. Mild bilateral foraminal stenosis and mild central spinal canal stenosis L2-L3. RADIA
[2018-07-27 18:39] VITALS: BP 137/76
== END 2018-07-27 18:43 | disposition home or self-care (01) ==
LOC: ED 15:35
DX: G89.29 Other chronic pain (principal); M54.5 Low back pain; R40.0 Somnolence; W01.0XXA Fall on same level from slipping, tripping and stumbling without subsequent striking against object, initial encounter; I10 Essential (primary) hypertension; E11.65 Type 2 diabetes mellitus with hyperglycemia; Z79.4 Long term (current) use of insulin
CPT/HCPCS: 36415; 70450; 72131; 72192; 80053; 81003; 82009; 82803; 83690; 83735; 85025; 96374; 96376; 99283; 99284; J1170; 81001; 87086

== ENCOUNTER 2018-10-11 | Outpatient (CLI) | payer MEDICARE | END 2018-10-11 14:49 | disposition home or self-care (01) | DX: G47.10 Hypersomnia, unspecified (principal); G47.8 Other sleep disorders; R06.81 Apnea, not elsewhere classified; R06.83 Snoring | CPT/HCPCS: 99203; G0463; 99212 ==

== ENCOUNTER 2018-10-20 09:21 | Outpatient (CLI) | payer MEDICARE ==
[2018-10-20 10:09] LABS: BASOPHILS # (AUTO) 0.1 10^3/uL (0.0-0.1); BASOPHILS % (AUTO) 0.8 %; EOSINOPHILS # (AUTO) 0.3 10^3/uL (0.0-0.7); EOSINOPHILS % (AUTO) 5.5 %; HGB - HEMOGLOBIN 12.6 g/dL (14.0-18.0); LYMPHOCYTES # (AUTO) 1.2 10^3/uL (1.5-3.5); LYMPHOCYTES % (AUTO) 19.5 %; MEAN CORPUSCULAR HEMOGLOBIN 31.3 pg (27.0-31.0); MEAN CORPUSCULAR HGB CONC 34.1 g/dL (32.0-36.0); MEAN CORPUSCULAR VOLUME 91.8 fL (80.0-94.0); MEAN PLATELET VOLUME 10.7 fL (7.4-11.4); MONOCYTES # (AUTO) 0.4 10^3/uL (0.0-1.0); MONOCYTES % (AUTO) 5.8 %; NEUTROPHILS # (AUTO) 4.1 10^3/uL (1.5-6.6); NEUTROPHILS % (AUTO) 68.2 %; PLT - PLATELET COUNT 163 10^3/uL (130-450); RED BLOOD COUNT 4.03 10^6/uL (4.70-6.10); RED CELL DISTRIBUTION WIDTH 12.3 % (12.0-15.0)
[2018-10-20 10:16] LABS: ALBUMIN 3.9 g/dL (3.2-5.5); ALBUMIN/GLOBULIN RATIO 1.4 (1.0-2.2); BILIRUBIN,TOTAL 0.6 mg/dL (0.2-1.0); CREATININE 1.1 mg/dL (0.6-1.2); TOTAL PROTEIN 6.6 g/dL (6.7-8.2)
[2018-10-20 10:42] LABS: INR 1.1 (0.8-1.2); PT - PROTHROMBIN TIME 11.8 secs (9.9-12.6)
== END 2018-10-20 09:22 | disposition home or self-care (01) ==
LOC: LAB 09:21
PROVIDERS: ATTEND Orthopaedic Surgery Orthopaedic Surgery of the Spine
DX: Z01.818 Encounter for other preprocedural examination (principal)
CPT/HCPCS: 36415; 80053; 85025; 85610; 93005

== ENCOUNTER 2018-11-17 19:12 | Outpatient (CLI) | payer MEDICARE, OTHER | END 2018-11-17 19:13 | disposition home or self-care (01) | LOC: SC 19:12 | PROVIDERS: ATTEND Internal Medicine Pulmonary Disease | DX: G47.33 Obstructive sleep apnea (adult) (pediatric) (principal); G47.61 Periodic limb movement disorder | CPT/HCPCS: 95810 ==

== ENCOUNTER 2018-12-07 14:02 | Outpatient (CLI) | payer MEDICARE, OTHER ==
--- NOTE | 2018-12-07 14:38 | SLEEP CARE CONSULTATION ---
Information from patient questionnaire entered by Dana Mata. I have reviewed and concur with the information entered by Dana Mata. This document represents the service I personally performed and the decisions made by me, Parish Allison MD, [facility]. History of Present Illness Initial [place] Sleepiness Scale score: 12 Current [place] Sleepiness Scale score: 9 Additional HPI information: HPI: Mr. Garcia returned for follow up of the sleep study he had on 11/17/2018. The polysomnography showed that the patient had slightly reduced sleep efficiency due to sleep onset insomnia. Despite moderate sleep fragmentation,, the sleep architecture was normal. Respiratory monitoring showed moderate obstructive sleep apnea-hypopnea (AHI = 28.1) associated with frequent arousals, oxyhemoglobin desaturation and mild hypoxia (star oxygen saturation of 87%). The patient did not sleep supine during this study (supine AHI = 0.0; non-supine = 28.51). Snore was light to loud in intensity. There was mild periodic leg movement of sleep not contributing to the sleep fragmentation. Cardiac rhythm was normal sinus rhythm occasional multifocal premature ventricular contractions including bigeminy and couplets.. No abnormal behavior (parasomnia) observed during the night. The patient was informed of these findings. I explained to him the pathophysiology behind obstructive sleep apnea. We then spent quite a bit of time discussing different treatment options. For mild obstructive sleep apnea, surgery and oral appliance are alternatives to nasal CPAP therapy but in moderate or severe cases, nasal CPAP is the most effective and reliable treatment. Weight loss in an obese individual is strongly recommended. After some discussion, he opted to go with the nasal CPAP therapy. I explained to him how CPAP machine works and what to expect when using the machine. Allergies and Home Medications Drug allergies reviewed: Yes Home medication list reviewed: Yes Review of Systems Review of systems same as previous: Yes Impression and Plan IMPRESSION: 1. Obstructive Sleep Apnea-Hypopnea Syndrome, moderate, associated with mild hypoxemia and sleep fragmentation. Most likely, this is the cause of the patients symptoms of unrefreshed sleep, and excessive daytime sleepiness. As mentioned above, the patient will be scheduled to come back for a manual CPAP/BiPAP titration study. PLAN: 1. Schedule a manual CPAP/BiPAP titration study. 2. Attempt to lose weight and avoid alcohol consumption near bedtime. 3. The patient is again cautioned about driving until his sleepiness completely resolves on the CPAP therapy. 4. Return for follow up after the sleep study. I will prescribe him the necessary equipment at that time. I spent 100% of this 20 minute visit face to face with the patient with greater than 50% of this was spent time counseling the patient and coordination of care.
== END 2018-12-07 14:03 | disposition home or self-care (01) ==
LOC: SC 14:02
PROVIDERS: ATTEND Internal Medicine Pulmonary Disease
DX: G47.33 Obstructive sleep apnea (adult) (pediatric) (principal); G47.61 Periodic limb movement disorder
CPT/HCPCS: 99213; G0463; 99212

== ENCOUNTER 2018-12-29 19:11 | Outpatient (CLI) | payer MEDICARE | END 2018-12-29 19:12 | disposition home or self-care (01) | LOC: SC 19:11 | PROVIDERS: ATTEND Internal Medicine Pulmonary Disease | DX: G47.33 Obstructive sleep apnea (adult) (pediatric) (principal); G47.61 Periodic limb movement disorder | CPT/HCPCS: 95811 ==

== ENCOUNTER 2019-01-11 12:35 | Emergency (ER) | payer MEDICARE, OTHER ==
[2019-01-11 12:45] VITALS: BP 133/77
--- NOTE | 2019-01-11 13:37 | XRAY Report ---
Reason: foot pain Procedure Date: 01/11/2019 Accession Number: [id number] / [id number] Procedure: XR - Foot 3 View LT CPT Code: Final Report FULL RESULT: EXAM: LEFT FOOT RADIOGRAPHY EXAM DATE: 01/11/2019 01:04 PM. CLINICAL HISTORY: Left foot pain. COMPARISON: None. TECHNIQUE: 3 views. FINDINGS: Bones: Moderate plantar spurring is seen. No fractures or bone lesions. Joints: Minor degenerative changes in the first MTP. Normal alignment. Soft Tissues: Mild vascular calcification is seen. IMPRESSION: No acute findings. Heel spurring seen. RADIA
[2019-01-11 13:39] LABS: BILIRUBIN,URINE NEGATIVE (NEGATIVE); GLUCOSE, URINE (UA) NEGATIVE (NEGATIVE); KETONES,URINE (UA) NEGATIVE (NEGATIVE); LEUKOCYTE ESTERASE, URINE NEGATIVE (NEGATIVE); NITRITE,URINE NEGATIVE (NEGATIVE); OCCULT BLOOD,URINE NEGATIVE (NEGATIVE); PH,URINE 6.5 PH (5.0-7.5); PROTEIN,URINE NEGATIVE (NEGATIVE); UROBILINOGEN,URINE 0.2 (NORMAL) E.U./dL (NORMAL)
[2019-01-11] MEDS ORDERED: MELOXICAM 7.5 MG TABLET PO STA (13:48)
--- NOTE | 2019-01-11 13:52 | ED Physician Documentation ---
History of Present Illness - Stated complaint Stated Complaint: L FOOT PX - Chief complaint Chief Complaint: Ext Problem - History obtained from History obtained from: Patient - History of Present Illness Timing: Today Pain level max: 5 Pain level now: 4 - Additonal information Additional information: L heel pain for the past several days. worse with walking. better with rest. Does not recall any injury. No fevers. Review of Systems Constitutional: denies: Fever, Chills GI: denies: Vomiting, Diarrhea Skin: denies: Rash Musculoskeletal: denies: Neck pain, Back pain Neurologic: denies: Headache PD PAST MEDICAL HISTORY - Past Medical History Cardiovascular: Hypertension, High cholesterol, Coronary artery disease Respiratory: None Neuro: None Endocrine/Autoimmune: Type 2 diabetes GI: None : None HEENT: None Psych: None Musculoskeletal: Osteoarthritis Derm: None - Past Surgical History Past Surgical History: Yes Ortho: Shoulder arthroplasty Cardiovascular: CABG - Present Medications Home Medications: Ambulatory Orders Medication Instructions Recorded Confirmed Atorvastatin [Lipitor] 10 mg PO DAILY 07/26/16 07/26/16 amLODIPine [Norvasc] 5 mg PO DAILY 07/26/16 07/27/18 metFORMIN [Glucophage] 500 mg PO BID 07/26/16 07/27/18 Oxycodone HCl/Acetaminophen 1 - 2 each PO Q6H PRN #14 tablet 11/09/17 [Percocet 5-325 mg Tablet] Gabapentin [Neurontin] 1 tab ORAL TID 07/27/18 07/27/18 Naproxen 375 mg PO BID #20 tablet 07/27/18 Oxycodone HCl/Acetaminophen 1 each PO TID PRN #20 tablet 07/27/18 [Percocet 7.5-325 mg Tablet] Meloxicam [Mobic] 15 mg PO DAILY PRN #20 tablet 01/11/19 - Allergies Allergies/Adverse Reactions: Allergies Allergy/AdvReac Type Severity Reaction Status Date / Time No Known Drug Allergies Allergy Verified 07/27/18 15:41 - Social History Does the pt smoke?: No Smoking Status: Never smoker Does the pt drink ETOH?: Yes Does the pt have substance abuse?: No - Immunizations Immunizations are current?: Yes - POLST Patient has POLST: No PD ED PE NORMAL - Vitals Vital signs reviewed: Yes - General General: Alert and oriented X 3, No acute distress - HEENT HEENT: Moist mucous membranes - Neck Neck: Supple, no meningeal sign - Cardiac Cardiac: RRR - Respiratory Respiratory: No respiratory distress, Clear bilaterally - Back Back: No spinal TTP, Other (incision well healed from spine surgery 8 weeks ago) - Derm Derm: Warm and dry - Extremities Extremities: Other (L heel, TTP over the medial aspect. normal skin. NVI. no swelling.) - Neuro Neuro: Alert and oriented X 3 - Psych Psych: Normal mood, Normal affect Results - Vitals Vitals: Vital Signs - 24 hr 01/11/19 12:42 Temperature 36.8 C Heart Rate 60 Respiratory 18 Rate Blood Pressure 133/77 H O2 Saturation 98 Oxygen O2 Source Room air - Labs Labs: Laboratory Tests 01/11/19 13:27 Urine Color YELLOW Urine Clarity CLEAR Urine pH 6.5 Ur Specific [place] 1.010 Urine Protein NEGATIVE Urine Glucose (UA) NEGATIVE Urine Ketones NEGATIVE Urine Occult Blood NEGATIVE Urine Nitrite NEGATIVE Urine Bilirubin NEGATIVE Urine Urobilinogen 0.2 (NORMAL) Ur Leukocyte Esterase NEGATIVE Ur Microscopic Review NOT INDICATED Urine Culture Comments NOT INDICATED - Rads (name of study) L foot xray Radiology: Prelim report reviewed, EMP read contemporaneously, See rad report (No acute findings. Heel spurring seen. ) PD MEDICAL DECISION MAKING - ED course Complexity details: considered differential, d/w patient ED course: Patient appears to have a heel spur on the left heel. Likely causing a mild plantar fasciitis. Will place on anti-inflammatories. Placed in a postop shoe and given a cane. No evidence of infection. He also states that he had some mild right flank pain, most likely secondary to his chronic back pain. Urinalysis is negative. He is well-appearing, nontoxic. Afebrile. Patient cou nseled regarding signs and symptoms for which I believe and urgent re-evaluation would be necessary. Patient with good understanding of and agreement to plan and is comfortable going home at this time This document was made in part using voice recognition software. While efforts are made to proofread this document, sound alike and grammatical errors may occur. Departure - Departure Disposition: 01 Home, Self Care Clinical Impression: Heel spur Qualifiers: Laterality: left Qualified Code(s): M77.32 - Calcaneal spur, left foot Condition: Good Instructions: ED Heel Spur, ED Plantar Fasciitis Follow-Up: Lisa Knutson DO [Primary Care Provider] - Within 1 week Prescriptions: Meloxicam [Mobic] 15 mg PO DAILY PRN #20 tablet PRN Reason: pain Comments: You appear to have a heel spur and likely plantar fasciitis. Continue gentle stretching. Ice may help as well. Follow-up with your doctor for further care.
[2019-01-11 13:55] LABS: CLARITY,URINE CLEAR (CLEAR)
== END 2019-01-11 14:15 | disposition home or self-care (01) ==
LOC: ED 12:35
DX: M77.32 Calcaneal spur, left foot (principal); R10.9 Unspecified abdominal pain; I10 Essential (primary) hypertension; E11.9 Type 2 diabetes mellitus without complications; Z79.84 Long term (current) use of oral hypoglycemic drugs
CPT/HCPCS: 73630; 81003; 99284; A9270; 81001; 87086

== ENCOUNTER 2019-01-18 14:22 | Outpatient (CLI) | payer MEDICARE, OTHER ==
--- NOTE | 2019-01-18 15:15 | SLEEP CARE CONSULTATION ---
Information from patient questionnaire entered by Dana Mata. I have reviewed and concur with the information entered by Dana Mata. This document represents the service I personally performed and the decisions made by me, Parish Allison MD, [facility]. History of Present Illness Initial [place] Sleepiness Scale score: 12 Current [place] Sleepiness Scale score: 5 Additional HPI information: HPI: Mr. Garcia returns for follow up of the sleep study (a manual CPAP titration study) he had on 12-29-18. The polysomnography showed that CPAP was initiated at 5 cmH2O and titrated up to CPAP at 7 cmH2O. CPAP at 7 cmH2O appeared to be optimal (AHI of 2.3 per hour on the pressure). There was supine REM sleep on the pressure. Oxygen saturation was normal throughout the night. Lower CPAP settings allowed frequent residual respiratory events, which were mostly central apneas. The patient appeared to have tolerated positive airway pressure therapy well using nasal masks. The patients sleep efficiency was slightly reduced due to two prolonged awakenings after the sleep onset. The sleep architecture was normal. There was moderate periodic leg movement of sleep not associated with sleep fragmentation. Cardiac rhythm was normal sinus rhythm with frequent premature atrial and ventricular contractions. No abnormal behavior (parasomnia) observed during the night. The patient was informed of these findings. The patient does not have a CPAP yet. He is looking forward to using one. Allergies and Home Medications Drug allergies reviewed: Yes Home medication list reviewed: Yes Review of Systems Review of systems same as previous: Yes Impression and Plan IMPRESSION: 1. Obstructive Sleep Apnea-Hypopnea Syndrome, moderate, adequately controlled with CPAP of 7 cmH2O. Based on the titration study, I will prescribe him an autoCPAP set between 5 and 10 cmH2O. I anticipate good treatment compliance. 2. Periodic leg movement of sleep, moderate. The patient attributes it to neuropathy. He does take Oxycontin every night which helps. Iron and ferritin levels should be checked because iron deficiency is one of the few known causes of PLM. PLAN: 1. Prescription made for an autoCPAP, heated humidifier, and related supplies. 2. Attempt to lose weight. 3. Return for follow up after one month on the new machine. I spent 100% of this 20 minute visit face to face with the patient with greater than 50% of this was spent time counseling the patient and coordination of care.
== END 2019-01-18 14:23 | disposition home or self-care (01) ==
LOC: SC 14:22
PROVIDERS: ATTEND Internal Medicine Pulmonary Disease
DX: G47.33 Obstructive sleep apnea (adult) (pediatric) (principal); G47.61 Periodic limb movement disorder
CPT/HCPCS: 99213; G0463; 99212

== ENCOUNTER 2019-02-10 07:03 | Day surgery (SDC) | payer MEDICARE, OTHER ==
[2019-02-10] MEDS ORDERED: LACTATED RINGERS 1,000 ML IV ONE (07:18)
[2019-02-10] MEDS ORDERED: MIDAZOLAM 2 MG/2 ML VIAL IVP ONE (08:21)
[2019-02-10] MEDS ORDERED: fentaNYL 250 MCG/5 ML VIAL IVP ONE (08:21)
[2019-02-10 09:04] VITALS: BP 116/73
== END 2019-02-10 07:04 | disposition home or self-care (01) ==
LOC: SDS 07:03
PROVIDERS: ATTEND Surgery
PROC: 0DJD8ZZ Inspection of Lower Intestinal Tract, Via Natural or Artificial Opening Endoscopic (ICD-10-PCS; principal; 2019-02-10 08:15)
DX: Z12.11 Encounter for screening for malignant neoplasm of colon (principal); G47.33 Obstructive sleep apnea (adult) (pediatric); I10 Essential (primary) hypertension; E11.9 Type 2 diabetes mellitus without complications; Z79.4 Long term (current) use of insulin
CPT/HCPCS: G0121; J3010; J7120

== ENCOUNTER 2019-02-16 10:26 | Outpatient (CLI) | payer MEDICARE, OTHER | END 2019-02-16 10:27 | disposition home or self-care (01) | LOC: LAB 10:26 | PROVIDERS: ATTEND Family Medicine | DX: Z52.89 Donor of other specified organs or tissues (principal) | CPT/HCPCS: 36415; 86900; 86901 ==

== ENCOUNTER 2019-04-05 12:44 | Outpatient (CLI) | payer MEDICARE, OTHER ==
--- NOTE | 2019-04-05 22:50 | SLEEP CARE CONSULTATION ---
Information from patient questionnaire entered by Dana Mata. I have reviewed and concur with the information entered by Dana Mata. This document represents the service I personally performed and the decisions made by me, Parish Allison MD, [facility]. History of Present Illness Previous diagnosis: Moderate, Obstructive Sleep Apnea-Hypopnea Syndrome AHI: 28.1 Reason for follow up: first compliance Equipment type: CPAP Equipment obtained from: [facility] Prior sleep studies: Yes HPI additional information: HPI: Mr. Garcia returned today for follow up of nasal CPAP therapy. He was diagnosed to have moderate obstructive sleep apnea-hypopnea syndrome. The patient wears a Respironics DreamWear nasal cushion mask (he also has a full face mask). He reports using the device most nights. The compliance report shows usage in 30 nights out of the past 50 nights, averaging 4.3 hours a night. The > 4 hour compliance rate for the past 50 days is 32%. He complained of no particular problem with the device such as soreness on the face, dry nose, epistaxis, nasal congestion or headache. He thinks that the pressure of 5 10 cmH2O is comfortable. On the CPAP therapy he notices improvement in his sleep quality, and that he wakes up feeling fresher in the morning and more awake/alert during the day. His notices no snore at all and likes the CPAP. The average residual AHI is 11.9; and average time in large leak per day is 8 minutes. The 90th percentile pressure is 9 cmH2O. CPAP Compliance Data - Data Reviewed with Patient Average duration of nightly device use: 3h 49m Compliance rate %: 30 Current pressure setting (cmH2O): 5-10 Humidity settin Heated hose settin Average residual AHI: 13.2 Average large leak: 10m 9s Subjective Patient concerns: reports: nasal congestion, dry mouth, nose, throat Current pressure setting perceived as: comfortable Initial [place] Sleepiness Scale score: 12 Current [place] Sleepiness Scale score: 3 Allergies and Home Medications Drug allergies reviewed: Yes Home medication list reviewed: Yes Allergy and home medication list: Current Medications: metformin, amlodipine, oxycodone, naproxen, gabapentin, Lipitor Allergies: no known drug allergies Review of Systems Review of systems same as previous: Yes Physical Exam Height: 6 ft Weight: 244 lb Body Mass Index: 33.0 BMI Classification: Obesity Class 1 Impression and Plan IMPRESSION: 1. Obstructive Sleep Apnea-Hypopnea Syndrome, moderate, with the patient doing fairly well on nasal CPAP therapy. He has [id number] compliance but significant clinical improvement. The current pressure appears comfortable but slightly ineffective. His mask fits well. Overall, he is very satisfied with treatment and plans to continue with it long-term. I will raise the pressure range to make the treatment more effective. PLAN: 1. Raise the autoCPAP to 7 - 12 cmH2O. 2. Try to use the device more. I went over the [place] compliance criteria with him. 3. Return for follow up in one month to document compliance. I spent 100% of this visit face to face with the patient with greater than 50% of this was spent time counseling the patient and coordination of care.
== END 2019-04-05 12:45 | disposition home or self-care (01) ==
LOC: SC 12:44
PROVIDERS: ATTEND Internal Medicine Pulmonary Disease
DX: G47.33 Obstructive sleep apnea (adult) (pediatric) (principal); E66.9 Obesity, unspecified; Z68.33 Body mass index [BMI] 33.0-33.9, adult
CPT/HCPCS: 99213; G0463; 99212

== ENCOUNTER 2019-05-02 15:25 | Outpatient (CLI) | payer MEDICARE, OTHER ==
[2019-05-02 16:12] VITALS: BP 130/68
--- NOTE | 2019-05-02 16:12 | SLEEP CARE CONSULTATION ---
Information from patient questionnaire entered by Yolis Mcmahon. I have reviewed and concur with the information entered by Yolis Mcmahon. This document represents the service I personally performed and the decisions made by me, Eloise Paz, RN, MSN, MACHINIST SUPERVISOR. History of Present Illness Previous diagnosis: Moderate, Obstructive Sleep Apnea-Hypopnea Syndrome AHI: 28.1 Reason for follow up: one month (last chance for compliance) Equipment type: CPAP Equipment obtained from: [facility] Mask style: Nasal (Dreamwisp) Mask brand: Respironics Backup mask available: Yes (nasal mask ) Last cushion change: not since obtained new [facility] CPAP Compliance Data - Data Reviewed with Patient Average duration of nightly device use: 5.95 Compliance rate %: 70 Current pressure setting (cmH2O): 7-12 Humidity settin Heated hose settin Average residual AHI: 10.7 Central apnea: 2.7 Obstructive apnea: 2.9 Hypopnea: 5.1 Average large leak: 23 min 48 sec Subjective Patient concerns: reports: mask discomfort (cushion too small ), other (neuropathy can cause sleep disruption from hand and leg pain - takes gabapentin and occasional oxycoden. ). denies: aerophagia, air blowing in eyes, mask leak noise, condensation in mask/hose, nasal congestion, dry mouth, nose, throat, epistaxis Observed to snore while using device: No Current pressure setting perceived as: comfortable On therapy, patient: reports: sleeping better (slightly). denies: drowsiness while driving Initial [place] Sleepiness Scale score: 12 Current [place] Sleepiness Scale score: 5 Allergies and Home Medications Known drug allergies: No Home medication list reviewed: Yes (celebrex added ) Review of Systems Review of systems same as previous: No (saw back specialist who added medication to assist symptoms ) Physical Exam Blood Pressure: 130/68 Cuff size: long Heart Rate: 62 O2 Saturation: 97 Height: 6 ft Weight: 238 lb Body Mass Index: 32.3 BMI Classification: Obese Impression and Plan 1. Obstructive Sleep Apnea-Hypopnea Syndrome, moderate, with good treatment compliance and elevated residual AHI. On CPAP therapy, the patient has better sleep quality and is more rested overall. The patients pressure will be changed to autoCPAP 9-12 cmH20 For elevation of residual AHI. Patient advised to contact me if pressure change is uncomfortable so that it can be adjusted. Goals for apnea control discussed. For mask discomfort that patient feels is from too small of cushion, he is advised to contact [facility] for a larger cushion. He is advised to discuss neuropathy concerns with PCP and back specialist to reduce sleep fragmentation. Patient's apnea severity and rationale for treatment to reduce apnea, improve sleep quality and reduce cardiovascular and cerebrovascular events was reviewed. I also reviewed the benefit of consistent device use of CPAP for hypertension, cardiac disease, diabetes, depression/anxiety. Patient advised of the importance of using CPAP with all sleep including naps for maximum benefit of treatment. * * Change CPAP pressure to 9-12 cmH2O * Change mask cushion * Use CPAP with all sleep * Notify me if snoring with mask or feeling that the pressure is too much or too little * Attempt to lose weight * Call this office if any problems using CPAP * Return for follow up in 2 months , or sooner if concerns arise Time Spent with Patient (minutes): 30 I spent 100% of this visit face to face with the patient with greater than 50% of this was spent time counseling the patient and coordination of care.
== END 2019-05-02 15:26 | disposition home or self-care (01) ==
LOC: SC 15:25
PROVIDERS: ATTEND Nurse Practitioner Family
DX: G47.33 Obstructive sleep apnea (adult) (pediatric) (principal); E66.9 Obesity, unspecified; Z68.32 Body mass index [BMI] 32.0-32.9, adult
CPT/HCPCS: 99214; G0463; 99212

== ENCOUNTER 2019-07-07 11:05 | Outpatient (CLI) | payer MEDICARE, OTHER ==
--- NOTE | 2019-07-07 11:02 | SLEEP CARE CONSULTATION ---
Information from patient questionnaire entered by Dana Mata. I have reviewed and concur with the information entered by Dana Mata. This document represents the service I personally performed and the decisions made by me, Eloise Paz, RN, MSN, TECHNOLOGY MANAGER. History of Present Illness Service Date and Time: 07/07/2019 1105 Previous diagnosis: Moderate, Obstructive Sleep Apnea-Hypopnea Syndrome AHI: 28.1 Reason for follow up: other (2 month with pressure change) Equipment type: CPAP Equipment obtained from: [facility] (getting supplies as needed) Mask style: Nasal Backup mask available: Yes (old style that leaks / keep current mask when replaced as spare) CPAP Compliance Data - Data Reviewed with Patient Average duration of nightly device use: 6h 9m Compliance rate %: 83.3 Current pressure setting (cmH2O): 9-12 Humidity settin Heated hose settin Average residual AHI: 8.9 Central apnea: 2.0 Obstructive apnea: 4.0 Hypopnea: 2.9 Average large leak: 24m 9s Subjective Patient concerns: reports: other (new larger cushion more ). denies: aerophagia, mask discomfort, air blowing in eyes, mask leak noise, condensation in mask/hose, nasal congestion, dry mouth, nose, throat, epistaxis Observed to snore while using device: Yes (per spouse ) Current pressure setting perceived as: comfortable On therapy, patient: denies: sleeping better (no due to back and leg pain so does not feel rested. He has seen PCP and back specialist and has another referral to specialist but delay due to Bashir Virus. He is also out of pain medications. Shots given in back did not assist pain. ) Initial [place] Sleepiness Scale score: 12 Physical Exam Height: 6 ft Impression and Plan 1. Obstructive Sleep Apnea-Hypopnea Syndrome, moderate , with good treatment compliance and elevated residual AHI. apnea control. On CPAP therapy, the patient has noted no benefit. He is also experiencing back and leg pain which fragments his sleep. His last referral to specialist has been delayed. The patient was encouraged to continue to seek further evaluation with PCP / specialist to reduce sleep fragmentation from pain. In addition, the patients pressure will be changed to autoCPAP 12-14 cmH20 For elevation of residual AHI and snoring. Patient advised to contact me if pressure change is uncomfortable or if contined snoring so that it can be adjusted. His mask leaks are reported from his tossing and turning during sleep. Goals for apnea control discussed. It is hoped with the above measures, he will obtain better benefit from treatment. In addition, he is advised to use CPAP with naps with rationale discussed. Patient's apnea severity and rationale for treatment to reduce apnea, improve sleep quality and reduce cardiovascular and cerebrovascular events was reviewed. * Changeauto CPAP pressure to 12-14 cmH2O * use CPAP with naps * Notify me if snoring with mask or feeling that the pressure is too much or too little * Follow up with PCP/ back specialist regarding back pain * Call this office if any problems using CPAP * Return for follow up in 1 month , or sooner if concerns arise Visit Type: Telehealth Phone (to reduce risk of Covid 19 exposure) Patient Location: Home Location of Provider: Home Patient agrees and consents to this telehealth visit type: Yes Patient agrees to have their insurance billed: Yes Time Spent with Patient (minutes): 10 Provider Statement: I spent 100% of the Telehealth Phone Call with the patient with greater than 50% spent counseling the patient and coordination of care.
== END 2019-07-07 11:06 | disposition home or self-care (01) ==
LOC: SC 11:05
PROVIDERS: ATTEND Nurse Practitioner Family
DX: G47.33 Obstructive sleep apnea (adult) (pediatric) (principal)

== ENCOUNTER 2019-07-11 11:11 | Emergency (ER) | payer MEDICARE, OTHER ==
--- NOTE | 2019-07-11 13:36 | ED Physician Documentation ---
PD HPI BACK PAIN - Stated complaint Stated Complaint: BACK PX - Chief complaint Chief Complaint: Back Pain - History obtained from History obtained from: Patient - History of Present Illness Timing - onset: Chronic Timing - duration: Years Timing - details: Constant Pain level max: 4 Pain level now: 4 Location: Lower Quality: Pain, Similar to prior episodes Associated symptoms: No: Fever, Weakness, Numbness, Incontinent of urine, Unable to urinate, Hematuria, Incontinent of stool Improves with: Rest Worsened by: Movement Contributing factors: No: Lifting, Twisting, Trauma, Anticoagulated, Cancer, IVDA Similar symptoms before: Diagnosis (Chronic back pain) - Additional information Additional information: 63-year-old male with chronic back pain. States that he has had 2 surgeries in the past. He states that his doctor will not give him anything for pain management. He has been referred to pain management but states that they just want to do injections and that did not help in the past. No loss of bowel or bladder control. No new injuries. States that the pain is no different than usual. He did recently start on Celebrex which he states did help but does not feel like it is helping anymore. He states steroids have helped in the past. Review of Systems Constitutional: denies: Fever, Chills GI: denies: Nausea, Vomiting, Diarrhea : denies: Unable to Void, Incontinent Neurologic: denies: Focal weakness, Numbness PD PAST MEDICAL HISTORY - Past Medical History Past Medical History: Yes Cardiovascular: Hypertension, High cholesterol, Coronary artery disease Respiratory: Sleep apnea, CPAP use Neuro: Peripheral neuropathy Endocrine/Autoimmune: Type 2 diabetes GI: None : Kidney stones HEENT: None Psych: Depression Musculoskeletal: Osteoarthritis, Chronic back pain Derm: None - Past Surgical History Past Surgical History: Yes General: Colonoscopy Ortho: Shoulder arthroplasty, Spine surgery Cardiovascular: CABG - Present Medications Home Medications: Ambulatory Orders Medication Instructions Recorded Confirmed Atorvastatin [Lipitor] 10 mg PO DAILY 07/26/16 02/09/19 amLODIPine [Norvasc] 5 mg PO DAILY 07/26/16 02/10/19 metFORMIN [Glucophage] 500 mg PO BID 07/26/16 02/10/19 Oxycodone HCl/Acetaminophen 1 - 2 each PO Q6H PRN #14 tablet 11/09/17 02/09/19 [Percocet 5-325 mg Tablet] Gabapentin [Neurontin] 1 tab ORAL TID 07/27/18 02/09/19 Naproxen 375 mg PO BID #20 tablet 07/27/18 02/09/19 Meloxicam [Mobic] 15 mg PO DAILY PRN #20 tablet 07/11/19 predniSONE [Deltasone] 10 mg PO [id number] #42 tab 07/11/19 - Allergies Allergies/Adverse Reactions: Allergies Allergy/AdvReac Type Severity Reaction Status Date / Time No Known Drug Allergies Allergy Verified 07/11/19 11:20 - Social History Does the pt smoke?: No Smoking Status: Former smoker Does the pt drink ETOH?: Yes Does the pt have substance abuse?: Yes Substance Use and Type: Marijuana - Immunizations Immunizations are current?: Yes - POLST Patient has POLST: No PD ED PE NORMAL - Vitals Vital signs reviewed: Yes - General General: Alert and oriented X 3, No acute distress, Well developed/nourished - HEENT HEENT: Moist mucous membranes - Neck Neck: Supple, no meningeal sign - Cardiac Cardiac: RRR - Respiratory Respiratory: No respiratory distress, Clear bilaterally - Abdomen Abdomen: Soft, Non tender, Non distended - Back Back: No spinal TTP (No midline tenderness to palpation or percussion. No step- off or deformity.) - Derm Derm: Warm and dry - Extremities Extremities: Other (Normal bilateral lower extremity patellar and ankle jerk reflexes. Normal great toe extension bilaterally. no saddle anesthesia) - Neuro Neuro: Alert and oriented X 3, No motor deficit, No sensory deficit - Psych Psych: Normal mood, Normal affect Results - Vitals Vitals: Vital Signs - 24 hr 07/11/19 07/11/19 07/11/19 11:12 11:41 13:44 Temperature 36.5 C 36.8 C 37.2 C Heart Rate 65 64 63 Respiratory 20 18 16 Rate Blood Pressure 120/71 124/83 H 123/70 O2 Saturation 96 98 99 Oxygen O2 Source Room air PD MEDICAL DECISION MAKING - ED course Complexity details: considered differential (No cauda equina, no spinal epidural abscess, no fracture, no aortic dissection or evidence of aneursym rupture), d/w patient ED course: Patient with chronic back pain. We will trial him on meloxicam rather than Celebrex and trial him on a steroid taper as well. No evidence of cauda equina or epidural abscess. No neurological deficits. No new injury. No indication for radiographs. Ambulating well. Patient counseled regarding signs and symptoms for which I believe and urgent re-evaluation would be necessary. Patient with good understanding of and agreement to plan and is comfortable going home at this time This document was made in part using voice recognition software. While efforts are made to proofread this document, sound alike and grammatical errors may occur. Departure - Departure Disposition: Home, Self Care Clinical Impression: Chronic back pain Qualifiers: Back pain location: low back pain Back pain laterality: bilateral Sciatica presence: without sciatica Qualified Code(s): M54.5 - Low back pain Condition: Good Instructions: ED Neck Back Pain General Follow-Up: Lisa Knutson DO [Primary Care Provider] - Within 1 week Prescriptions: Meloxicam [Mobic] 15 mg PO DAILY PRN #20 tablet PRN Reason: pain predniSONE [Deltasone] 10 mg PO [id number] #42 tab Comments: We will try you on the meloxicam rather than the Celebrex. Return if you worsen. Follow-up with your doctor for referrals to a medical billing and coding specialist and a painter ordnance. Discharge Date/Time: 07/11/19 13:45
[2019-07-11 13:44] VITALS: BP 123/70
== END 2019-07-11 13:45 | disposition home or self-care (01) ==
LOC: ED 11:11
DX: M54.5 Low back pain (principal); G89.29 Other chronic pain; E11.42 Type 2 diabetes mellitus with diabetic polyneuropathy; Z79.84 Long term (current) use of oral hypoglycemic drugs; Z87.891 Personal history of nicotine dependence
CPT/HCPCS: 99282; 99284

== ENCOUNTER 2019-07-25 10:36 | Emergency (ER) | payer MEDICARE, OTHER ==
--- NOTE | 2019-07-25 11:17 | XRAY Report ---
Reason: Chest Pain Procedure Date: 07/25/2019 Accession Number: [id number] / [id number] Procedure: XR - Chest 1 View X-Ray CPT Code: 89376 Final Report FULL RESULT: EXAM: CHEST RADIOGRAPHY EXAM DATE: 07/25/2019 11:09 AM. CLINICAL HISTORY: Chest pain. COMPARISON: None. TECHNIQUE: 1 view. FINDINGS: Lungs/Pleura: Smooth interstitial opacities in the peripheral bases, suspect representing Dave B lines due to mild edema. No focal consolidation, pleural effusion, or pneumothorax. Mediastinum: Postoperative changes of prior CABG. Normal cardiomediastinal contour. Atherosclerotic calcifications within the aortic arch. Other: Thoracic spine DISH. Right shoulder arthroplasty. IMPRESSION: 1. Post CABG. 2. Probable mild pulmonary edema. RADIA
[2019-07-25 11:38] LABS: BASOPHILS % (AUTO) 0.4 %; EOSINOPHILS # (AUTO) 0.3 10^3/uL (0.0-0.7); EOSINOPHILS % (AUTO) 2.9 %; LYMPHOCYTES % (AUTO) 18.3 %; MEAN CORPUSCULAR HGB CONC 33.9 g/dL (32.0-36.0); MEAN CORPUSCULAR VOLUME 94.4 fL (80.0-94.0); MEAN PLATELET VOLUME 9.8 fL (7.4-11.4); MONOCYTES # (AUTO) 0.7 10^3/uL (0.0-1.0); MONOCYTES % (AUTO) 6.8 %; NEUTROPHILS # (AUTO) 7.7 10^3/uL (1.5-6.6); PLT - PLATELET COUNT 136 10^3/uL (130-450); RED BLOOD COUNT 3.75 10^6/uL (4.70-6.10); RED CELL DISTRIBUTION WIDTH 13.5 % (12.0-15.0); WHITE BLOOD COUNT 10.8 x10^3/uL (4.8-10.8)
[2019-07-25 11:53] LABS: ALBUMIN 3.7 g/dL (3.2-5.5); ALBUMIN/GLOBULIN RATIO 1.4 (1.0-2.2); BILIRUBIN,TOTAL 0.9 mg/dL (0.2-1.0); CALCIUM 8.3 mg/dL (8.5-10.3); CREATININE 1.7 mg/dL (0.6-1.2); TOTAL PROTEIN 6.4 g/dL (6.7-8.2)
--- NOTE | 2019-07-25 12:43 | ED Physician Documentation ---
PD HPI DYSPNEA - Stated complaint Stated Complaint: CP/SOA - Chief complaint Chief Complaint: Cardiac - History obtained from History obtained from: Patient - History of Present Illness Timing - onset: How many weeks ago (1) Timing - onset during: Rest, Light activity Timing - duration: Days (few days up to a week) Timing - details: Gradual onset (has noted increasing [place] and chest tightness, with mild leg edema. No noted cough per se, but has had some congestion nasally.), Still present Inciting event(s): No: Out of meds, URI (no fever nor productive cough nor purulent nasal discharge.) Associated symptoms: Wheezing, Chest pain / discomfort. No: Fever, Cough, Hemoptysis, Palpitations, Bilateral edema Review of Systems Constitutional: denies: Fever, Chills, Myalgias Nose: reports: Congestion. denies: Rhinorrhea / runny nose Throat: denies: Sore throat Respiratory: reports: Cough, Wheezing. denies: Dyspnea, Hemoptysis GI: denies: Nausea, Vomiting, Diarrhea, Bloody / black stool Musculoskeletal: reports: Extremity swelling Neurologic: reports: Generalized weakness. denies: Focal weakness, Numbness, Near syncope, Confused, Altered mental status, Headache PD PAST MEDICAL HISTORY - Past Medical History Past Medical History: Yes Cardiovascular: Hypertension, High cholesterol, Coronary artery disease Respiratory: Sleep apnea, CPAP use Neuro: Peripheral neuropathy Endocrine/Autoimmune: Type 2 diabetes GI: None : Kidney stones HEENT: None Psych: Depression Musculoskeletal: Osteoarthritis, Chronic back pain Derm: None - Past Surgical History Past Surgical History: Yes General: Colonoscopy Ortho: Shoulder arthroplasty, Spine surgery Cardiovascular: CABG (in 2000, without exertional dyspnea nor chest pain until this recent symptoms. ) - Present Medications Home Medications: Ambulatory Orders Medication Instructions Recorded Confirmed Atorvastatin [Lipitor] 10 mg PO DAILY 07/26/16 02/09/19 amLODIPine [Norvasc] 5 mg PO DAILY 07/26/16 02/10/19 metFORMIN [Glucophage] 500 mg PO BID 07/26/16 02/10/19 Oxycodone HCl/Acetaminophen 1 - 2 each PO Q6H PRN #14 tablet 11/09/17 02/09/19 [Percocet 5-325 mg Tablet] Gabapentin [Neurontin] 1 tab ORAL TID 05/21/19 12/04/19 Naproxen 375 mg PO BID #20 tablet 07/27/18 02/09/19 Meloxicam [Mobic] 15 mg PO DAILY PRN #20 tablet 07/11/19 predniSONE [Deltasone] 10 mg PO [id number] #42 tab 07/11/19 Albuterol Sulfate [Albuterol 2 puffs IH QID #1 hfa.aer.ad 07/25/19 Sulfate Hfa] Furosemide [Lasix] 20 mg PO DAILY #10 tablet 07/25/19 - Allergies Allergies/Adverse Reactions: Allergies Allergy/AdvReac Type Severity Reaction Status Date / Time No Known Drug Allergies Allergy Verified 07/25/19 10:52 - Social History Does the pt smoke?: No Smoking Status: Never smoker Does the pt drink ETOH?: Yes Does the pt have substance abuse?: Yes - Immunizations Immunizations are current?: Yes - POLST Patient has POLST: No PD ED PE NORMAL - Vitals Vital signs reviewed: Yes - General General: Alert and oriented X 3, Well developed/nourished, Other (mild anxious. Good sats on RA. able to talk full sentences. ) - HEENT HEENT: Atraumatic - Neck Neck: Supple, no meningeal sign, No bony TTP, No adenopathy - Cardiac Cardiac: No murmur, No rub. No: RRR - Respiratory Respiratory: No respiratory distress, Clear bilaterally - Abdomen Abdomen: Normal bowel sounds, Soft, Non tender, Non distended - Derm Derm: Normal color, Warm and dry - Extremities Extremities: No tenderness to palpate, Normal ROM s pain, No calf tenderness / cord, Other (1+ edema in both ankles and lower legs. ) - Neuro Neuro: Alert and oriented X 3, No motor deficit, Normal speech Results - Vitals Vitals: Vital Signs - 24 hr 07/25/19 07/25/19 07/25/19 10:53 11:52 13:01 Temperature 36.7 C Heart Rate 53 L 58 L 52 L Respiratory 20 25 H 21 Rate Blood Pressure 157/78 H 160/85 H 131/82 H O2 Saturation 97 98 97 07/25/19 07/25/19 07/25/19 13:38 13:40 14:39 Temperature 37 C Heart Rate 54 L 52 L 54 L Respiratory 18 14 16 Rate Blood Pressure 121/80 155/86 H O2 Saturation 97 99 Oxygen O2 Source Room air - EKG (time done) 11:06 Rate: Rate (enter#) (53) Rhythm: Sinus bradycardia [place]: Normal Intervals: Normal MD QRS: Normal Ischemia: Normal ST segments. No: ST elevation c/w ischemia, ST depression - Labs Labs: Laboratory Tests 07/25/19 07/25/19 07/25/19 11:30 11:30 11:30 WBC 10.8 RBC 3.75 L Hgb 12.0 L Hct 35.4 L MCV 94.4 H MCH 32.0 H MCHC 33.9 RDW 13.5 Plt Count 136 MPV 9.8 Neut # (Auto) 7.7 H Lymph # (Auto) 2.0 [place] # (Auto) 0.7 Eos # (Auto) 0.3 Baso # (Auto) 0.0 Absolute Nucleated RBC 0.00 Nucleated RBC % 0.0 Sodium 136 Potassium 4.6 Chloride 102 Carbon Dioxide 25 Anion Gap 9.0 BUN 29 H Creatinine 1.7 H Estimated GFR (MDRD) 41 L Glucose 97 Calcium 8.3 L Magnesium Total Bilirubin 0.9 AST 17 ALT 15 Alkaline Phosphatase 38 L Troponin I High Sens 8.8 B-Natriuretic Peptide Total Protein 6.4 L Albumin 3.7 Globulin 2.7 Albumin/Globulin Ratio 1.4 Lipase 59 H 07/25/19 07/25/19 11:30 11:30 WBC RBC Hgb Hct MCV MCH MCHC RDW Plt Count MPV Neut # (Auto) Lymph # (Auto) [place] # (Auto) Eos # (Auto) Baso # (Auto) Absolute Nucleated RBC Nucleated RBC % Sodium Potassium Chloride Carbon Dioxide Anion Gap BUN Creatinine Estimated GFR (MDRD) Glucose Calcium Magnesium 2.1 Total Bilirubin AST ALT Alkaline Phosphatase Troponin I High Sens B-Natriuretic Peptide 635 H Total Protein Albumin Globulin Albumin/Globulin Ratio Lipase - Rads (name of study) chest xray Radiology: Prelim report reviewed (some pulmonary edema. No focal infiltrates. ), EMP read contemporaneously, See rad report PD MEDICAL DECISION MAKING - ED course Complexity details: reviewed results, re-evaluated patient (improved with Albuterol MDI and is also having good initial diuresis from diuretic. Sats/vitals are good. Does not appear needing hospitalization, but will want to see some improvement over next 2-3 days. Will want ECHO, labs, recheck, as remote CABG and needs closer follow up.), considered differential (consider onset of CHF, with remote history of CABG. Sats are good, and basic labs okay. Can Rx short term diuretics.), d/w patient Departure - Departure Disposition: 01 Home, Self Care Clinical Impression: Pulmonary edema cardiac cause Dyspnea Qualifiers: Dyspnea type: shortness of breath Qualified Code(s): R06.02 - Shortness of breath Condition: Stable Record reviewed to determine appropriate education?: Yes Instructions: ED CHF General Follow-Up: Lisa Knutson DO [Primary Care Provider] - Prescriptions: Albuterol Sulfate [Albuterol Sulfate Hfa] 2 puffs IH QID #1 hfa.aer.ad Furosemide [Lasix] 20 mg PO DAILY #10 tablet Comments: Continue your usual medications. Add Furosemide diuretic daily for 7-10 days. Your trouble breathing may also be coming from airway cause as well. So use the Albuterol inhaler 2 puffs 4 times daily for the next 7-10 days as well. Follow up with your PMD later this week, call tomorrow for an appt. Return if wo rsening. Discharge Date/Time: 07/25/19 14:47
[2019-07-25] MEDS ORDERED: ALBUTEROL 1 PUFF INH STA (13:14)
[2019-07-25] MEDS ORDERED: FUROSEMIDE 20 MG/2 ML VIAL IVP STA (13:14)
[2019-07-25 14:40] VITALS: BP 155/86
== END 2019-07-25 14:47 | disposition home or self-care (01) ==
LOC: ED 10:36
DX: I11.0 Hypertensive heart disease with heart failure (principal); I50.1 Left ventricular failure, unspecified; R00.1 Bradycardia, unspecified; I25.10 Atherosclerotic heart disease of native coronary artery without angina pectoris; Z95.1 Presence of aortocoronary bypass graft; E11.42 Type 2 diabetes mellitus with diabetic polyneuropathy; Z79.84 Long term (current) use of oral hypoglycemic drugs
CPT/HCPCS: 36415; 71045; 80053; 81599; 83690; 83735; 83880; 84484; 85025; 93005; 94640; 96374; 99284

== ENCOUNTER 2019-08-05 07:00 | Outpatient (CLI) | payer MEDICARE, OTHER ==
[2019-08-05 17:48] LABS: BASOPHILS % (AUTO) 0.6 %; EOSINOPHILS # (AUTO) 0.3 10^3/uL (0.0-0.7); EOSINOPHILS % (AUTO) 4.2 %; HGB - HEMOGLOBIN 11.7 g/dL (14.0-18.0); LYMPHOCYTES # (AUTO) 1.2 10^3/uL (1.5-3.5); LYMPHOCYTES % (AUTO) 18.2 %; MEAN CORPUSCULAR HGB CONC 33.6 g/dL (32.0-36.0); MEAN CORPUSCULAR VOLUME 92.1 fL (80.0-94.0); MEAN PLATELET VOLUME 10.2 fL (7.4-11.4); MONOCYTES # (AUTO) 0.4 10^3/uL (0.0-1.0); MONOCYTES % (AUTO) 6.5 %; NEUTROPHILS # (AUTO) 4.7 10^3/uL (1.5-6.6); NEUTROPHILS % (AUTO) 70.2 %; PLT - PLATELET COUNT 185 10^3/uL (130-450); RED BLOOD COUNT 3.78 10^6/uL (4.70-6.10); RED CELL DISTRIBUTION WIDTH 13.1 % (12.0-15.0); WHITE BLOOD COUNT 6.7 x10^3/uL (4.8-10.8)
[2019-08-05 18:00] LABS: HB2 TOTAL 12.6 g/dL; HEMOGLOBIN A1C 0.59 g/dL; HEMOGLOBIN A1C % 6.4 % (4.6-6.2)
[2019-08-05 18:01] LABS: CREATININE,URINE 99.6 mg/dL; MICROALBUM/CREATININE RATIO,UR 228.9 ug/mg (<30.0); MICROALBUMIN,URINE 22.8 mg/dL (0-300.0)
[2019-08-05 18:03] LABS: ALBUMIN 4.3 g/dL (3.2-5.5); ALBUMIN/GLOBULIN RATIO 1.5 (1.0-2.2); ALKALINE PHOSPHATASE 42 IU/L (42-121); ALT ALANINE AMINOTRANSFERASE 16 IU/L (10-60); AST ASPARTATE AMINOTRANSFERASE 17 IU/L (10-42); BILIRUBIN,TOTAL 0.9 mg/dL (0.2-1.0); BUN - BLOOD UREA NITROGEN 31 mg/dL (6-20); CALCIUM 8.7 mg/dL (8.5-10.3); CARBON DIOXIDE - CO2 24 mmol/L (21-32); CHLORIDE 104 mmol/L (101-111); CHOL/HDL RATIO 4.7 (<5.0); CHOLESTEROL 160 mg/dL; CREATININE 1.6 mg/dL (0.6-1.2); GLUCOSE 119 mg/dL (70-100); HDL CHOLESTEROL 34 mg/dL; LDL CHOLESTEROL,CALCULATED 100 mg/dL; LDL/HDL RATIO 2.9 (<3.6); SODIUM 135 mmol/L (135-145); TOTAL PROTEIN 7.2 g/dL (6.7-8.2); VLDL CHOLESTEROL 26 mg/dL
== END 2019-08-05 23:59 | disposition home or self-care (01) ==
LOC: LAB.WCP 07:00
PROVIDERS: ATTEND Family Medicine
DX: E11.9 Type 2 diabetes mellitus without complications (principal); I25.10 Atherosclerotic heart disease of native coronary artery without angina pectoris; F41.8 Other specified anxiety disorders; R06.09 Other forms of dyspnea; Z12.5 Encounter for screening for malignant neoplasm of prostate
CPT/HCPCS: 36415; 80053; 80061; 82043; 82570; 83036; 83880; 84443; 85025; G0103; 83721; 84153

== ENCOUNTER 2019-08-19 08:46 | Outpatient (CLI) | payer MEDICARE, OTHER | END 2019-08-19 08:47 | disposition home or self-care (01) | LOC: DI 08:46 | PROVIDERS: ATTEND Family Medicine | DX: I34.0 Nonrheumatic mitral (valve) insufficiency (principal); I51.7 Cardiomegaly | CPT/HCPCS: 93306 ==

== ENCOUNTER 2019-08-23 10:59 | Outpatient (CLI) | payer MEDICARE, OTHER | END 2019-08-23 11:00 | disposition critical access hospital (66) | LOC: EMS 10:59 | PROVIDERS: ATTEND Surgery | DX: R07.9 Chest pain, unspecified (principal) | CPT/HCPCS: A0425; A0427 ==

== ENCOUNTER 2019-08-23 11:17 | Observation (INO) | payer MEDICARE, OTHER ==
--- NOTE | 2019-08-23 11:33 | ED Physician Documentation ---
PD HPI CHEST PAIN - Stated complaint Stated Complaint: CP - Chief complaint Chief Complaint: Cardiac - History obtained from History obtained from: Patient, EMS - History of Present Illness Timing - onset: Today Timing - onset during: Rest Timing - duration: Hours Timing - details: Abrupt onset, Now resolved Pain level max: 6 Pain level now: 0 Quality: Pressure, Tightness Location: Left chest Radiation: No: Jaw, Neck, Back, Abdominal, Left upper extremity, Right upper extremity Improved by: Nitro, ASA Worsened by: Exertion Associated symptoms: Shortness of air, Nausea. No: Diaphoresis, Vomiting, Feeling faint / dizzy, General Weakness, Palpitations, Cough Similar symptoms before: Diagnosis (CAD) Recently seen: Clinic - Additional information Additional information: 63-year-old male with a history of coronary artery disease went to the clinic today to discuss his back pain he developed pain in his left chest with Today he was given aspirin and nitroglycerin by paramedics with resolution of his symptoms. He had no electrocardiographic changes prior to administration or after administration of nitroglycerin.a bit of dyspnea associated with this. He denies any diaphoresis or or radiation of the pain associated with this. He does have a history of coronary artery disease he had a bypass done. He has had exertional dyspnea over the past year worsening. He has been having episodes of pain similar to this. He has been having increased exertional dyspnea and he was seen in the emergency department here at [facility] last month given a dose of furosemide for failure and he did not fill the prescription he was given. He states he improved did not feel there was any further need. Review of Systems Constitutional: denies: Fever Eyes: denies: Decreased vision Ears: denies: Ear pain Nose: denies: Rhinorrhea / runny nose, Congestion Throat: denies: Sore throat Cardiac: reports: Chest pain / pressure. denies: Palpitations, Pedal edema, Calf pain Respiratory: reports: Dyspnea. denies: Cough, Wheezing GI: reports: Nausea. denies: Abdominal Pain, Abdominal Swelling, Vomiting : denies: Dysuria, Frequency PD PAST MEDICAL HISTORY - Past Medical History Past Medical History: Yes Cardiovascular: Hypertension, High cholesterol, Coronary artery disease Respiratory: Sleep apnea, CPAP use Neuro: Peripheral neuropathy Endocrine/Autoimmune: Type 2 diabetes GI: None : Kidney stones HEENT: None Psych: Depression Musculoskeletal: Osteoarthritis, Chronic back pain Derm: None - Past Surgical History Past Surgical History: Yes General: Colonoscopy Ortho: Shoulder arthroplasty, Spine surgery Cardiovascular: CABG - Present Medications Home Medications: Ambulatory Orders Medication Instructions Recorded Confirmed Atorvastatin [Lipitor] 10 mg PO DAILY 07/26/16 08/23/19 amLODIPine [Norvasc] 5 mg PO DAILY 07/26/16 08/23/19 metFORMIN [Glucophage] 500 mg PO BID 07/26/16 08/23/19 Oxycodone HCl/Acetaminophen 1 - 2 each PO Q6H PRN #14 tablet 11/09/17 08/23/19 [Percocet 5-325 mg Tablet] Gabapentin [Neurontin] 1 tab ORAL TID 07/27/18 08/23/19 Naproxen 375 mg PO BID #20 tablet 07/27/18 08/23/19 Meloxicam [Mobic] 15 mg PO DAILY PRN #20 tablet 07/11/19 08/23/19 predniSONE [Deltasone] 10 mg PO [id number] #42 tab 07/11/19 08/23/19 Albuterol Sulfate [Albuterol 2 puffs IH QID #1 hfa.aer.ad 07/25/19 08/23/19 Sulfate Hfa] Furosemide [Lasix] 20 mg PO DAILY #10 tablet 07/25/19 08/23/19 - Allergies Allergies/Adverse Reactions: Allergies Allergy/AdvReac Type Severity Reaction Status Date / Time No Known Drug Allergies Allergy Verified 08/23/19 11:27 - Social History Does the pt smoke?: No Smoking Status: Never smoker Does the pt drink ETOH?: Yes Does the pt have substance abuse?: Yes - Immunizations Immunizations are current?: Yes - POLST Patient has POLST: No PD ED PE NORMAL - Vitals Vital signs reviewed: Yes (hypertensive mild ) - General General: Alert and oriented X 3, No acute distress, Well developed/nourished - HEENT HEENT: Atraumatic, PERRL, EOMI - Neck Neck: Supple, no meningeal sign, No bony TTP - Cardiac Cardiac: RRR, No murmur - Respiratory Respiratory: No respiratory distress, Clear bilaterally - Abdomen Abdomen: Soft, Non tender - Back Back: No CVA TTP, No spinal TTP - Derm Derm: Normal color, Warm and dry, No rash - Extremities Extremities: No deformity, No edema, No calf tenderness / cord - Neuro Neuro: Alert and oriented X 3, clinical director 2-12 intact, No motor deficit, No sensory deficit, Normal speech Eye Opening: Spontaneous Motor: Obeys Commands Verbal: Oriented GCS Score: 15 - Psych Psych: Normal mood, Normal affect Results - Vitals Vitals: Vital Signs - 24 hr 08/23/19 08/23/19 08/23/19 11:21 11:30 12:00 Temperature 36.5 C Heart Rate 64 61 66 Respiratory 16 17 11 L Rate Blood Pressure 128/82 H 129/74 135/76 H O2 Saturation 99 99 98 08/23/19 08/23/19 08/23/19 12:30 13:00 13:30 Temperature Heart Rate 52 L 54 L 56 L Respiratory 13 20 12 Rate Blood Pressure 126/75 124/71 128/72 O2 Saturation 97 98 98 08/23/19 08/23/19 14:00 14:30 Temperature Heart Rate 57 L 59 L Respiratory 11 L 18 Rate Blood Pressure 136/79 H 151/78 H O2 Saturation 100 98 Oxygen O2 Source Room air - EKG (time done) 1122 Rate: Rate (enter#) (59) Rhythm: NSR Ischemia: Non specific changes (T inversion in III) Compare to prior EKG: Unchanged from prior EKG ([facility] 07-25-2019) Computer interpretation: Agree with computer - Labs Labs: Laboratory Tests 08/23/19 08/23/19 08/23/19 12:00 12:00 12:00 WBC 7.4 RBC 3.63 L Hgb 11.5 L Hct 33.7 L MCV 92.8 MCH 31.7 H MCHC 34.1 RDW 12.5 Plt Count 152 MPV 9.6 Neut # (Auto) 5.4 Lymph # (Auto) 1.2 L [place] # (Auto) 0.5 Eos # (Auto) 0.3 Baso # (Auto) 0.1 Absolute Nucleated RBC 0.00 Nucleated RBC % 0.0 Sodium 134 L Potassium 5.0 Chloride 101 Carbon Dioxide 24 Anion Gap 9.0 BUN 29 H Creatinine 1.5 H Estimated GFR (MDRD) 47 L Glucose 124 H Calcium 8.5 Total Bilirubin 0.9 AST 19 ALT 14 Alkaline Phosphatase 42 Troponin I High Sens 6.2 B-Natriuretic Peptide Total Protein 6.5 L Albumin 4.0 Globulin 2.5 Albumin/Globulin Ratio 1.6 Lipase 35 08/23/19 08/23/19 12:00 14:10 WBC RBC Hgb Hct MCV MCH MCHC RDW Plt Count MPV Neut # (Auto) Lymph # (Auto) [place] # (Auto) Eos # (Auto) Baso # (Auto) Absolute Nucleated RBC Nucleated RBC % Sodium Potassium Chloride Carbon Dioxide Anion Gap BUN Creatinine Estimated GFR (MDRD) Glucose Calcium Total Bilirubin AST ALT Alkaline Phosphatase Troponin I High Sens 6.8 B-Natriuretic Peptide 63 Total Protein Albumin Globulin Albumin/Globulin Ratio Lipase - Rads (name of study) chest Radiology: Prelim report reviewed (Impression: No acute pulmonary process.), EMP read indepedently, See rad report PD MEDICAL DECISION MAKING - ED course Complexity details: reviewed old records, reviewed results, re-evaluated patient, considered differential, d/w patient, d/w family ED course: 63 y/o male with chronic back pain has not been in to see pain management yet and has now developed chest pain. He has a history of CABG remotely and he has a history of exertional dyspnea over the past year. Today he has no changes on his electrocardiogram he has negative troponin x2 his BNP is now negative as well. He has recurrence of his chest pain here in the emergency department and this time nitroglycerin does not relieve it. He has relief of his chest pain with the use of Toradol.I felt that the patient was dehydrated based on evaluation of his chest x-ray and blood work. He is administered a liter of saline. The patient has exertional dyspnea and chest pain and will need admission to observation for stress testing/stratification. Departure - Departure Disposition: ED Place in Observation Clinical Impression: Atypical chest pain
[2019-08-23] MEDS ORDERED: NITROGLYCERIN SL 0.4 MG TABLET SL STA (11:57)
[2019-08-23 12:09] LABS: BASOPHILS # (AUTO) 0.1 10^3/uL (0.0-0.1); BASOPHILS % (AUTO) 0.9 %; EOSINOPHILS # (AUTO) 0.3 10^3/uL (0.0-0.7); EOSINOPHILS % (AUTO) 3.4 %; HGB - HEMOGLOBIN 11.5 g/dL (14.0-18.0); LYMPHOCYTES # (AUTO) 1.2 10^3/uL (1.5-3.5); LYMPHOCYTES % (AUTO) 16.7 %; MEAN CORPUSCULAR HEMOGLOBIN 31.7 pg (27.0-31.0); MEAN CORPUSCULAR HGB CONC 34.1 g/dL (32.0-36.0); MEAN CORPUSCULAR VOLUME 92.8 fL (80.0-94.0); MEAN PLATELET VOLUME 9.6 fL (7.4-11.4); MONOCYTES # (AUTO) 0.5 10^3/uL (0.0-1.0); MONOCYTES % (AUTO) 6.3 %; NEUTROPHILS # (AUTO) 5.4 10^3/uL (1.5-6.6); NEUTROPHILS % (AUTO) 72.3 %; PLT - PLATELET COUNT 152 10^3/uL (130-450); RED BLOOD COUNT 3.63 10^6/uL (4.70-6.10); RED CELL DISTRIBUTION WIDTH 12.5 % (12.0-15.0); WHITE BLOOD COUNT 7.4 x10^3/uL (4.8-10.8)
--- NOTE | 2019-08-23 12:17 | XRAY Report ---
PROCEDURE: Chest 1 View X-Ray INDICATIONS: chest pain TECHNIQUE: One view of the chest was acquired. COMPARISON: Chest xray 07/25/19 FINDINGS: Surgical changes and devices: Sternal wires. Lungs and pleura: No pleural effusions or pneumothorax. Lungs are clear. Mediastinum: Mediastinal contours appear normal. Heart size is mildly prominent. Bones and chest wall: No suspicious bony lesions. Overlying soft tissues appear unremarkable. IMPRESSION: No acute pulmonary process. Reviewed by: Veena Craig MD on 08/23/2019 12:16 PM PDT Approved by: Veena Craig MD on 08/23/2019 12:16 PM PDT Station ID: [id number]
[2019-08-23 12:25] LABS: ALBUMIN/GLOBULIN RATIO 1.6 (1.0-2.2); BILIRUBIN,TOTAL 0.9 mg/dL (0.2-1.0); CALCIUM 8.5 mg/dL (8.5-10.3); CREATININE 1.5 mg/dL (0.6-1.2); TOTAL PROTEIN 6.5 g/dL (6.7-8.2)
[2019-08-23] MEDS ORDERED: SODIUM CHLORIDE 0.9% 1,000 ML IV STA (12:31)
[2019-08-23] MEDS ORDERED: KETOROLAC 30 MG/ML VIAL IVP STA (12:32)
[2019-08-23] MEDS ORDERED: ONDANSETRON 4 MG/2 ML VIAL IVP PRN (15:04)
[2019-08-23] MEDS ORDERED: MORPHINE 2 MG/ML CARPUJECT IVP PRN (15:04)
[2019-08-23] MEDS ORDERED: ZOLPIDEM 5 MG TABLET PO PRN (15:04)
[2019-08-23] MEDS ORDERED: SODIUM CHLORIDE FLUSH 0.9% 10 ML SYRINGE IVP PRN (15:04)
[2019-08-23] MEDS ORDERED: NITROGLYCERIN SL 0.4 MG TABLET SL PRN (15:09)
[2019-08-23] MEDS ORDERED: oxyCODONE 5 MG TABLET PO PRN (15:17)
[2019-08-23] MEDS ORDERED: GI COCKTAIL 120 ML BOTTLE PO PRN (15:19)
[2019-08-23] MEDS ORDERED: ALBUTEROL NEB 2.5 MG/3 ML INH PRN (15:20)
--- NOTE | 2019-08-23 15:36 | HISTORY & PHYSICAL EXAMINATION ---
Chief Complaint - Chief Complaint Chief Complaint: chest pain History of Present Illness - Admitted From Admitted From:: home - History Obtained From Records Reviewed: ER provider History obtained from: pt - History of Present Illness HPI Comment/Other: This is a 63-year-old male with a history of coronary artery disease, Hypertension, hyperlipidemia, sleep apnea, CPAP, peripheral neuropathy, diabetic 2, chronic back pain, depression, BPH, who present ER complain of chest pain. pt went to the clinic today for his back pain then he was reported he had his left chest. Pt was given aspirin and nitroglycerin by paramedics then his symptoms were resolved. He report his chest pain was located in anterior his left chest. He denies neck, jaw or upper left arm pain, nausea, vomiting or any diaphoresis or radiation of the pain. He had episodes of chest pain similar to this before. He report he has increased exertional dyspnea over the past year and he was seen in the emergency department here at [facility] last month. He report he was given once of Lasix then his symptoms were relief. Today he has no changes on his electrocardiogram. he had two negative troponin. his BNP is in the normal arrange. CXR is unremarkable as well. Patient had echo done 4 days ago which was unremarkable. pt is admitted for the workup of his chest pain. Discussed with pt about his care goal. pt would like to choose full code. History - Past Medical History Cardiovascular: reports: Hypertension, High cholesterol, Coronary artery disease Respiratory: reports: Sleep apnea, CPAP use Neuro: reports: Peripheral neuropathy Endocrine/Autoimmune: reports: Type 2 diabetes GI: reports: None : reports: Kidney stones HEENT: reports: None Psych: reports: Depression Musculoskeletal: reports: Osteoarthritis, Chronic back pain Derm: reports: None MRSA Hx?: No - Past Surgical History General: reports: Colonoscopy Ortho: reports: Shoulder arthroplasty, Spine surgery Cardiovascular: reports: CABG - Family & Social History Family History: Mother: , Father: , CAD Social History Notes: pt report he quit smoking cigarette in 1999, he denies alcohol and drug issue. he is living with his at [facility]. - POLST Patient has POLST: No Meds/Allgy - Home Medications Home Medications: Ambulatory Orders Medication Instructions Recorded Confirmed amLODIPine [Norvasc] 5 mg PO DAILY 07/26/16 08/23/19 metFORMIN [Glucophage] 500 mg PO BID 07/26/16 08/23/19 Oxycodone HCl/Acetaminophen 1 - 2 each PO Q6H PRN #14 tablet 11/09/17 08/23/19 [Percocet 5-325 mg Tablet] Naproxen 375 mg PO BID #20 tablet 07/27/18 08/23/19 Meloxicam [Mobic] 15 mg PO DAILY PRN #20 tablet 07/11/19 08/23/19 predniSONE [Deltasone] 10 mg PO [id number] #42 tab 07/11/19 08/23/19 Furosemide [Lasix] 20 mg PO DAILY #10 tablet 07/25/19 08/23/19 Albuterol Sulfate [Albuterol 2 puffs INH QID 08/23/19 08/23/19 Sulfate Hfa] Atorvastatin Calcium [Lipitor] 80 mg PO QPM 08/23/19 08/23/19 Duloxetine HCl [Cymbalta] 60 mg PO DAILY 08/23/19 08/23/19 Gabapentin 800 mg PO TID 08/23/19 08/23/19 Metoprolol Succinate [Toprol Xl] 100 mg PO BID 08/23/19 08/23/19 Tamsulosin HCl [Flomax] 0.4 mg PO QPM 08/23/19 08/23/19 - Allergies Allergies/Adverse Reactions: Allergies Allergy/AdvReac Type Severity Reaction Status Date / Time No Known Drug Allergies Allergy Verified 08/23/19 11:27 Review of Systems - Constitutional Constitutional: denies: Fatigue, Fever, Chills, Malaise, Weakness, Poor appetite, Diaphoresis, Night sweats - Eyes Eyes: denies: Pain, Blurred vision, Spots in vision, Field loss, Vision loss, Di polpia - Ears, Nose & Throat Ears, Nose & Throat: denies: Ear pain, Vertigo, Nosebleeds, Nasal congestion, Postnasal drainage, Sore throat, Mouth lesions, Bleeding gums - Cardiovascular Cariovascular: reports: Chest pain, Exertional dyspnea, Decr. exercise tolerance. denies: Irregular heart rate, Palpitations, Edema, Lightheadedness, Syncope - Respiratory Respiratory: denies: Cough, Sputum production, Wheezing, Snoring, Hemoptysis, Orthopnea, SOB at rest, SOB with exertion - Gastrointestinal Gastrointestinal: denies: Abdominal pain, Abdominal distention, Diarrhea, Change in bowel habits, Rectal bleeding, Black stools, Bloody stools, Nausea, Vomiting, Bile emesis, Kal[place] blood emesis, Coffee grounds emesis - Genitourinary Genitourinary: denies: Dysuria, Frequency, Urgency, Hematuria, Incontinence, Flank pain, Nocturia, Urethral discharge - Musculoskeletal Musculoskeletal: reports: Back pain. denies: Muscle pain, Muscle aches, Stiffness, Limited range of motion, Muscle weakness, Gout, Joint pain - Integumentary Integumentary: denies: Rash, Pruritis, Lesions, Dryness, Lumps, Acne, Nail changes - Neurological Neurological: denies: General weakness, Focal weakness, Headache, Dizziness, Numbness, Memory problems, Pre-existing deficit, Abnormal gait, Seizures, Incoordination, Slurred speech - Psychiatric Psychiatric: denies: Depression, Anxiety, Suicidal, Delusions, Hallucinations, Homicidal - Endocrine Endocrine: denies: Polyuria, Polydypsia, Polyphagia - Hematologic/Lymphatic Hematologic/Lymphatic: denies: Anemia, Bruising, Petechiae, Blood clots, L ymphadenopathy, Bleeding tendencies Exam - Vital Signs Vital Signs: Vital Signs x48h Temp Pulse Resp BP Pulse Ox 08/23/19 15:00 65 20 130/78 97 08/23/19 14:30 59 L 18 151/78 H 98 08/23/19 14:00 57 L 11 L 136/79 H 100 08/23/19 13:30 56 L 12 128/72 98 08/23/19 13:00 54 L 20 124/71 98 08/23/19 12:30 52 L 13 126/75 97 08/23/19 12:00 66 11 L 135/76 H 98 08/23/19 11:30 61 17 129/74 99 08/23/19 11:21 36.5 C 64 16 128/82 H 99 - Physical Exam General Appearance: positive: No acute distress, Alert. negative: Lethargic Eyes Bilateral: positive: Normal inspection, PERRL, No lid inflammation ENT: positive: ENT inspection nml, Pharynx nml, No signs of dehydration. negative: Purulent nasal drainage Neck: positive: Nml inspection, Thyroid nml, No JVD, Trachea midline. negative: Thyromegaly, Stiff neck, Tracheal deviation Respiratory: positive: Chest non-tender, No respiratory distress. negative: Wheezes, Rales, Rhonchi Cardiovascular: positive: Regular rate & rhythm, No murmur, No gallop. negative: Irregularly irregular, Extrasystoles, Tachycardia, Bradycardia, Systolic murmur, Diastolic murmur Peripheral Pulses: positive: 2+ Abdomen: positive: Non-tender, No organomegaly, Nml bowel sounds, No distention. negative: Tenderness, Guarding, Rebound Back: positive: Nml inspection. negative: CVA tenderness (R), CVA tenderness (L) Skin: positive: Color nml, No rash, Warm, Dry. negative: Cyanosis, Diaphoresis, Pallor Extremities: positive: Non-tender, Full ROM, Nml appearance. negative: Calf tenderness, Corine's sign/cords Neurologic/Psychiatric: positive: Oriented x3, Motor nml, Sensation nml, Mood/a ffect nml. negative: Weakness, Sensory loss, Facial droop, Slurred/abnml speech, Depressed mood/affect Sepsis Event Note (H) - Evaluation Current Stage of Sepsis: Ruled out Conclusion/Plan - Problem List (1) Chest pain Conclusion/Plan: Patient has history of CAD, history of hypertension, hyperlipidemia, patient chest pain was released by aspirin and nitro by EMS, patient had a twice troponin which was negative, EKG was unchanged from before. Patient's chest pain was localized without radiation to the other location. Patient had a repeated chest pain recently, patient report dyspnea recently as well and he report his dyspnea was relieved by given once of Lasix. BNP is normal arrange. Plan: continue troponin test, on telemetry, patient already have aspirin given by EMS, we will continue baby aspirin daily in the hospital. Continue home metoprolol, continue home Lipitor 80 mg daily. We will hold stress test on tomorrow. order nitro and morphine as needed for chest pain. Supplement of oxygen as needed. (2) HTN (hypertension) Conclusion/Plan: Patient has slight elevated blood pressure, will resume home metoprolol and amlodipine, continue vital signs monitor (3) Hyperlipidemia Conclusion/Plan: Patient has a history of hyperlipidemia, will continue Lipitor, we will obtain lipid panel test (4) Diabetes Conclusion/Plan: Patient has history of diabetes, he taken at home metformin, will hold metformin, we will start sliding scale,And check A1c (5) History of coronary artery disease Conclusion/Plan: Patient has history of CAD, had a bypass before. patient complain chest pain, will do stress test, will continue metoprolol, Lipitor. start with aspirin, Nitro and morphine PRN for chest pain, continue tele monitor (6) Chronic back pain Conclusion/Plan: Patient has a history of chronic back pain, will continue patient home pain medi cation Percocet (7) Depression Conclusion/Plan: Patient has Cymbalta, will continue (8) Sleep apnea Conclusion/Plan: Patient has history of sleep apnea, will continue CPAP as home setting (9) BPH (benign prostatic hyperplasia) Conclusion/Plan: Patient take Flomax for BPH, will continue Flomax (10) Obese Conclusion/Plan: Patient has a weight 104 kg, BMI 31.2, advised patient lost weight, patient agreed - Lab Results Fish Bones: 08/23/19 12:00 08/23/19 12:00 Core Measures - Anticipated LOS I expect patient to be DC'd or transferred within 96 hours.: Yes - DVT/VTE - Prophylaxis VTE/DVT Device ordered at admit?: Yes VTE/DVT Prophylaxis med ordered at admit?: Yes
[2019-08-23] MEDS: INSULIN ASPART 300 UNIT/3 ML PEN SUBQ SCH ×2 (17:31→22:22)
[2019-08-23] MEDS: SODIUM CHLORIDE 0.9% 1,000 ML IV SCH (18:05)
[2019-08-23] MEDS: amLODIPine 5 MG TABLET PO SCH (18:06)
[2019-08-23] MEDS: GABAPENTIN 400 MG CAPSULE PO SCH ×2 (19:27→23:42)
[2019-08-23] MEDS: SODIUM CHLORIDE FLUSH 0.9% 10 ML SYRINGE IVP SCH (19:27)
[2019-08-23 20:29] LABS: HB2 TOTAL 10.8 g/dL; HEMOGLOBIN A1C 0.53 g/dL; HEMOGLOBIN A1C % 6.6 % (4.6-6.2)
[2019-08-23] MEDS ORDERED: TAMSULOSIN 0.4 MG CAPSULE PO SCH (21:00)
[2019-08-23] MEDS ORDERED: ATORVASTATIN 40 MG TABLET PO SCH (21:00)
[2019-08-23] MEDS ORDERED: GABAPENTIN 400 MG CAPSULE PO SCH (22:00)
[2019-08-23] MEDS: METOPROLOL SUCCINATE 50 MG TABLET PO SCH (22:23)
[2019-08-23] MEDS: ACETAMINOPHEN 325 MG TABLET PO PRN (23:43)
[2019-08-23] MEDS: oxyCODONE 5 MG TABLET PO PRN (23:43)
[2019-08-24] MEDS: SODIUM CHLORIDE FLUSH 0.9% 10 ML SYRINGE IVP SCH ×3 (00:49→18:18)
[2019-08-24] MEDS: SODIUM CHLORIDE 0.9% 1,000 ML IV SCH (04:10)
[2019-08-24 05:56] LABS: BASOPHILS # (AUTO) 0.1 10^3/uL (0.0-0.1); BASOPHILS % (AUTO) 1.3 %; EOSINOPHILS # (AUTO) 0.2 10^3/uL (0.0-0.7); EOSINOPHILS % (AUTO) 3.3 %; HGB - HEMOGLOBIN 10.6 g/dL (14.0-18.0); LYMPHOCYTES # (AUTO) 1.1 10^3/uL (1.5-3.5); LYMPHOCYTES % (AUTO) 25.1 %; MEAN CORPUSCULAR HEMOGLOBIN 31.6 pg (27.0-31.0); MEAN CORPUSCULAR VOLUME 93.1 fL (80.0-94.0); MEAN PLATELET VOLUME 9.9 fL (7.4-11.4); MONOCYTES # (AUTO) 0.4 10^3/uL (0.0-1.0); MONOCYTES % (AUTO) 7.7 %; NEUTROPHILS # (AUTO) 2.8 10^3/uL (1.5-6.6); NEUTROPHILS % (AUTO) 62.4 %; PLT - PLATELET COUNT 132 10^3/uL (130-450); RED BLOOD COUNT 3.35 10^6/uL (4.70-6.10); RED CELL DISTRIBUTION WIDTH 12.4 % (12.0-15.0); WHITE BLOOD COUNT 4.6 x10^3/uL (4.8-10.8)
[2019-08-24 06:05] LABS: CALCIUM 8.4 mg/dL (8.5-10.3); CREATININE 1.3 mg/dL (0.6-1.2); MAGNESIUM 2.3 mg/dL (1.7-2.8)
[2019-08-24 06:14] LABS: CHOL/HDL RATIO 5.5 (<5.0); CHOLESTEROL 122 mg/dL; HDL CHOLESTEROL 22 mg/dL; LDL CHOLESTEROL,CALCULATED 55 mg/dL; LDL/HDL RATIO 2.5 (<3.6); VLDL CHOLESTEROL 45 mg/dL
[2019-08-24] MEDS: GABAPENTIN 400 MG CAPSULE PO SCH ×2 (06:44→13:57)
[2019-08-24] MEDS: oxyCODONE 5 MG TABLET PO PRN ×2 (06:46→13:58)
[2019-08-24] MEDS: ACETAMINOPHEN 325 MG TABLET PO PRN (06:46)
[2019-08-24] MEDS ORDERED: PANTOPRAZOLE 40 MG TABLET PO SCH (07:00)
[2019-08-24] MEDS: INSULIN ASPART 300 UNIT/3 ML PEN SUBQ SCH ×3 (08:29→20:09)
[2019-08-24] MEDS ORDERED: ASPIRIN CHEW 81 MG TABLET PO SCH (09:00)
[2019-08-24] MEDS ORDERED: ATORVASTATIN 10 MG TABLET PO SCH (09:00)
[2019-08-24] MEDS ORDERED: DULoxetine 30 MG CAPSULE PO SCH (09:00)
[2019-08-24] MEDS ORDERED: ENOXAPARIN 40 MG/0.4 ML SYRINGE SUBQ SCH (09:00)
[2019-08-24] MEDS: amLODIPine 5 MG TABLET PO SCH (09:39)
[2019-08-24] MEDS: METOPROLOL SUCCINATE 50 MG TABLET PO SCH (09:39)
[2019-08-24] MEDS ORDERED: AMINOPHYLLINE 250 MG/10 ML VIAL ONE (11:37)
[2019-08-24] MEDS ORDERED: REGADENOSON 0.4 MG/5 ML SYRINGE IVP ONE ×2 (11:37→13:17)
--- NOTE | 2019-08-24 14:09 | PHARMACY PROGRESS NOTE ---
- Best Possible Medication History Admit Date and Time: 08/23/19 1504 Processed by: Nursing Medication History completed: Yes As the person ultimately responsible for medication therapy, providers are able to order a medication from an existing home medication list in [facility] via the "Reconcile Routine" prior to Confirmation of that medication by patient support specialist. Such practice is discouraged except when the physician, in their clinical judgment, deems that a medical need exists for a medication without regard to previous use.
[2019-08-24 15:44] VITALS: BP 121/54
--- NOTE | 2019-08-24 15:56 | CARDIAC PROCEDURE NOTE ---
DATE OF SERVICE: 08/24/2019 Physician: Angeline Fagan MD INDICATION: Chest pain. This was done while the patient was in the hospital in Observation status for evaluating chest pain. DESCRIPTION OF PROCEDURE: After signing informed consent, the patient underwent a Lexiscan pharmaceutical stress test with nuclear myocardial perfusion imaging. RESTING HEART RATE: 54. PEAK HEART RATE: 87. RESTING BLOOD PRESSURE: 130/74. PEAK BLOOD PRESSURE: 126/72. Lexiscan was infused per protocol. The patient developed brief shortness of breath, no chest pain and had nausea and retching. Aminophylline 25 mg IV x1 was given for reversal of nausea symptoms. Oxygen saturation remained greater than 95% throughout the test. RESTING EKG: Sinus bradycardia, left atrial enlargement, LVH with left IVCD and strain pattern. EKG AT PEAK: Unchanged strain pattern. SUMMARY 1. Abnormal EKG. 2. Unable to comment on ST-segment and T-wave changes due to baseline abnormal EKG, during this pharmaceutical stress test. 3. Nuclear images reported separately. 4. This patient's cardiac risk based on all the above: Moderate to high. cc: Lisa Knutson DO TD: 08/24/2019 15:48 MTDD
--- NOTE | 2019-08-24 16:43 | Nuclear Medicine Report ---
PROCEDURE: Rest and pharmacological myocardial perfusion SPECT with gated imaging and ejection fraction INDICATIONS: chest pain RADIOPHARMACEUTICAL: 8 mCi Tc-99m sestamibi IV at rest and 22.8 mCi Tc-99m sestamibi IV at peak exer cise. [id number] was performed. TECHNIQUE: Radiopharmaceutical was injected at peak stress test, and also at rest. SPECT images wer e obtained. SPECT myocardial perfusion images were displayed in short axis, horizontal long axis, an d vertical long axis views. Gated images were reviewed using AutoQUANT software. COMPARISON: None available. FINDINGS: Raw data: There is good myocardial labeling by radiotracer. No significant motion artifacts. Lung- to-heart ratio is 0.21 (normal is less than 0.38). Left ventricle function: Gated images demonstrate normal left ventricle wall thickening. No segment al wall motion abnormality. No transient ischemic dilation; TID is 1.03 (normal less than 1.3). The left ventricle end-diastolic volume is 132 mL. Left ventricle stress ejection fraction is 58%; norm al values are above 45%. Myocardial perfusion: There is a moderate size, mild, fixed defect in the basal inferior wall, which persists on prone imaging, suggesting myocardial infarct. In addition, there is a small, mild, fixed defect in the anterior septal apex, which is improved on prone imaging, probably caused by soft tiss ue attenuation artifact. IMPRESSION: Probably abnormal myocardial perfusion images. 1. There is a moderate-sized area of mildly decreased activity in the basal inferior wall, which pers ists on prone imaging suggesting cardial infarction. 2. No reversible perfusion defect to suggest myocardial ischemia. 3. Mild enlargement of left ventricle. The left ventricular ejection fraction is within normal limits . No segmental wall motion abnormalities. PQRS ATTESTATIONS: Measure 322 - Is this imaging test primarily performed on a low-risk surgery patient for preoperative evaluation within 30 days preceding their low-risk non-cardiac surgery? Low-risk surgery is defined as cardiac or myocardial infarction less than 1%, including (but not limited to) endoscopic pr ocedures, superficial procedures, cataract surgery, and excisional breast surgery: Answer: No Measure 323 - Is this imaging test performed primarily for the monitoring of an asymptomatic patient who had percutaneous coronary intervention on the visit date or within 2 years of the visit date? An swer: No Measure 324 - Is this imaging test performed primarily for the initial detection and risk assessment on an asymptomatic, low coronary heart disease patient? Low CHD risk definition = clinicians should consider the maximum number of available patient factors used to estimate risk based on [place] (A TP III criteria), typically age, gender, diabetes, smoking status, and use of blood pressure medicati on, and integrate age appropriate estimates for missing elements, such as LDL or standard blood press ure. Answer: No Reviewed by: Aleshia Acuna MD on 08/24/2019 4:42 PM PDT Approved by: Aleshia Acuna MD on 08/24/2019 4:42 PM PDT Station ID: [id number]
--- NOTE | 2019-08-24 19:32 | Discharge Plan ---
Discharge Plan Problem Reviewed?: Yes Disposition: Home, Self Care Condition: Fair Prescriptions: Nitroglycerin [Nitrostat] 0.4 mg SL Q5MIN PRN #100 tab.subl PRN Reason: Chest Pain oxyCODONE ER [OxyCONTIN] 10 mg PO Q12H #6 tablet Diet: Diabetic (Low-salt, low-fat, diabetic diet peer) Activity Restrictions: Activity as Tolerated Shower Restrictions: No Driving Restrictions: No Instruction Topics: Nitroglycerin Fast Acting Health Concerns: You were in Observation status, to evaluate chest pain. The combination of test showed that you do have suffered heart attack; the bottom wall of your heart now has a scar. The best estimate is that this occurred sometime before the July 2019 emergency room visit here. You are being discharged with a new prescription for nitroglycerin to use under your tongue, if you get chest pain or severe shortness of breath. The prescription was electronically sent to your [facility] pharmacy. Please have follow-up with Dr. Dmitry Fung, your Pigment Pusher, soon. Continue to use all your other prehospital medications. A supplemental prescription for oxycodone was sent to [facility] pharmacy as well. Keep the new appointment with the pain management provider. Please carry out light activity, nothing strenuous. No Smoking: If you smoke, Please STOP! Call for help. Follow-up with: Lisa Knutson DO [Primary Care Provider] -
--- NOTE | 2019-08-24 19:39 | DISCHARGE SUMMARY ---
Discharge Summary Admit Date: 08/23/19 Discharge Date: 08/24/19 Discharging Provider: Dr Angeline Fagan Primary Care Provider: Dr Lisa Knutson, Dr Dmitry Andre (Family Service Caseworker) Code Status: Attempt Resuscitation Condition at Discharge: Fair Discharge Disposition: 01 Home, Self Care - HPI History of Present Illness: From the admission H&P of Simon Artis NP: This is a 63-year-old male with a history of coronary artery disease, hypertension, hyperlipidemia, sleep apnea on CPAP, peripheral neuropathy, diabetes melitus type 2, chronic back pain, depression, BPH, who presented to ER complaining of chest pain. pt went to the clinic today for his back pain then he reported he had left chest. Pt was given aspirin and nitroglycerin by paramedics then his symptoms resolved. He reported his chest pain was located in anterior- left chest. He denies neck, jaw or upper left arm pain, nausea, vomiting or any diaphoresis or shortness of breath. He had episodes of chest pain similar to this before. He reported he has increased exertional dyspnea over the past year and he was seen in the emergency department here at [facility] last month for this. He reported he was given a dose of Lasix then his symptoms were relieved. Today he has no changes on his electrocardiogram. He hadstwo negative troponins. His BNP is in the normal arrange, but was 600's at the ER visit one month ago. CXR is unremarkable. Patient had an outpatient Echo done 4 days ago which was unremarkable. He is being admitted for chest pain workup. Discussed with pt about his care goals, he would like to be a full code. - HOSPITAL COURSE Hospital Course: (1) Chest pain Patient had no episodes of chest pain here. His troponins were all normal. He went on to have a chemical (non-walking) stress test. He had no chest pain during the stress test but had nausea. The nuclear scan portion showed a fixed inferior wall defect consistent with old [place], and no areas of reversible ischemia. He was discharged with a new prescription for sl NTG prn, and told to have light activity, and that he needs a follow-up soon with his Family Service Caseworker. (2) Old NY This Hospitalist reviewed his EMR, and there was no mention of an old NY. The patient also stated he did not have a prior NY. He did have prior CABG in 2000 and then a stress test 10 years later, and was never told he had an inferior scar. His LVEF by nuclear scan and by recent outpatient Echo was preserved. His B-diana and aspirin were continued. He may have had the NY just before the ER visit one month ago, when his BNP was found to be 600. (3) History of coronary artery disease Patient has history of CAD, had a bypass before, and has established with a new Family Service Caseworker, Dr Dmitry Andre. This Hospitalist tried to reach Dr Andre to discuss the possible new NY, seen on nuclear scan, but it was after hours. (4) HTN (hypertension) Patient has slightly elevated blood pressure, which responded to his home metoprolol and amlodipine treatment. (5) Hyperlipidemia Patient has a history of hyperlipidemia, we continued his Lipitor. A lipid panel was done and showed good LDL control at 55, but poor Triglyceride control at 225. This needs outpatient management with Lopid or other agent. (6) Diabetes Patient has history of diabetes, he takes metformin. Here he was on a carb-controlled diet and sliding scale. His A1c was 6.6 indicating good glucose control. (7) Chronic back pain He has chronic back pain, which he treats at home with Percocet. He was dis charged with several tablets of Oxycodone 10 mg to use prn, until he gets to his pain management appointment in September in [place]. (8) Depression Patient takes Cymbalta, which was continued. (9) Sleep apnea, on CPAP Patient has a history of sleep apnea, and is compliant with CPAP, which was continued while here. (10) BPH (benign prostatic hyperplasia) Patient takes Flomax for BPH, which was continued. (11) Obesity, BMI 30.9 Patient has a weight of 104 kg, and BMI 31.2. Advised patient to lose weight, and the patient agreed. - ALLERGIES Allergies/Adverse Reactions: Allergies Allergy/AdvReac Type Severity Reaction Status Date / Time No Known Drug Allergies Allergy Verified 08/23/19 11:27 - MEDICATIONS Home Medications: Ambulatory Orders Medication Instructions Recorded Confirmed amLODIPine [Norvasc] 5 mg PO DAILY 07/26/16 08/23/19 metFORMIN [Glucophage] 500 mg PO BID 07/26/16 08/23/19 Oxycodone HCl/Acetaminophen 1 - 2 each PO Q6H PRN #14 tablet 11/09/17 08/23/19 [Percocet 5-325 mg Tablet] Naproxen 375 mg PO BID #20 tablet 07/27/18 08/23/19 Meloxicam [Mobic] 15 mg PO DAILY PRN #20 tablet 07/11/19 08/23/19 predniSONE [Deltasone] 10 mg PO [id number] #42 tab 07/11/19 08/23/19 Furosemide [Lasix] 20 mg PO DAILY #10 tablet 07/25/19 08/23/19 Albuterol Sulfate [Albuterol 2 puffs INH QID 08/23/19 08/23/19 Sulfate Hfa] Atorvastatin Calcium [Lipitor] 80 mg PO QPM 08/23/19 08/23/19 Duloxetine HCl [Cymbalta] 60 mg PO DAILY 08/23/19 08/23/19 Gabapentin 800 mg PO TID 08/23/19 08/23/19 Metoprolol Succinate [Toprol Xl] 100 mg PO BID 08/23/19 08/23/19 Tamsulosin HCl [Flomax] 0.4 mg PO QPM 08/23/19 08/23/19 Nitroglycerin [Nitrostat] 0.4 mg SL Q5MIN PRN #100 tab.subl 08/24/19 oxyCODONE ER [OxyCONTIN] 10 mg PO Q12H #6 tablet 08/24/19 Oxycodone HCl [Oxycontin] 10 mg PO Q12H #6 tab.er.12h 08/25/19 - PHYSICAL EXAM AT DISCHARGE General Appearance: positive: No acute distress, Alert Eyes Bilateral: positive: Normal inspection, EOMI ENT: positive: ENT inspection nml, No signs of dehydration Neck: positive: Nml inspection, No JVD Respiratory: positive: No respiratory distress, Breath sounds nml Cardiovascular: positive: Regular rate & rhythm, No murmur Abdomen: positive: Non-tender, Other (Obese) Skin: positive: Color nml Extremities: positive: Non-tender, No pedal edema Neurologic/Psychiatric: positive: Oriented x3, Other (Non-focal) - LABS Result Diagrams: 08/24/19 05:05 08/24/19 05:05 - DIAGNOSTIC IMAGING Diagnostic Imaging Results: Final report reviewed - SEPSIS Current Stage of Sepsis: Ruled out - FOLLOW UP Follow Up: See Family Service Caseworker soon. See PCP for hospital follow-up. - TIME SPENT Time Spent in Discharge (Minutes): 45
== END 2019-08-24 20:21 | disposition home or self-care (01) ==
LOC: EDUNIT# → ED 11:17 → MS2 15:04
PROVIDERS: ADMIT Nurse Practitioner Gerontology; ATTEND Internal Medicine
DX: R07.89 Other chest pain (principal); I25.2 Old myocardial infarction; I25.10 Atherosclerotic heart disease of native coronary artery without angina pectoris; I10 Essential (primary) hypertension; E78.5 Hyperlipidemia, unspecified; E11.42 Type 2 diabetes mellitus with diabetic polyneuropathy; M54.9 Dorsalgia, unspecified; G89.29 Other chronic pain; F32.9 Major depressive disorder, single episode, unspecified; N40.0 Benign prostatic hyperplasia without lower urinary tract symptoms; G47.30 Sleep apnea, unspecified; E66.9 Obesity, unspecified; Z68.31 Body mass index [BMI] 31.0-31.9, adult; E86.0 Dehydration; Z79.84 Long term (current) use of oral hypoglycemic drugs; Z87.891 Personal history of nicotine dependence; Z95.1 Presence of aortocoronary bypass graft
CPT/HCPCS: 36415; 71045; 78452; 80048; 80053; 80061; 83036; 83690; 83735; 83880; 84484; 85025; 93005; 93017; 96361; 96372; 96374; 99284; 99285; A9270; A9500; G0378; J1650; J2785; 83721

== ENCOUNTER 2019-08-28 02:02 | Outpatient (CLI) | payer MEDICARE, OTHER | END 2019-08-28 02:03 | disposition critical access hospital (66) | LOC: EMS 02:02 | PROVIDERS: ATTEND Surgery | DX: R07.9 Chest pain, unspecified (principal); R10.10 Upper abdominal pain, unspecified; R61 Generalized hyperhidrosis; R06.00 Dyspnea, unspecified; R11.0 Nausea | CPT/HCPCS: A0425; A0427 ==

== ENCOUNTER 2019-08-28 02:19 | Emergency (ER) | payer MEDICARE, OTHER ==
--- NOTE | 2019-08-28 02:10 | ED Physician Documentation ---
History of Present Illness - Stated complaint Stated Complaint: CP/ ABD PX - History obtained from History obtained from: Patient (Patient is a 63-year-old male who presents with a chief complaint of chest pain and abdominal pain. Patient was admitted recently and had an unremarkable stress test. He also reports that he has chronic pain and he is run out of his chronic pain medication which is OxyContin.), Other (He denies any history of pulmonary embolism or DVT patient reports he has been ambulating well without shortness of breath denies any lower extremity swelling.) Review of Systems Constitutional: reports: Reviewed and negative Eyes: reports: Reviewed and negative Ears: reports: Reviewed and negative Nose: reports: Reviewed and negative Throat: reports: Reviewed and negative Cardiac: reports: Chest pain / pressure Respiratory: reports: Reviewed and negative GI: reports: Abdominal Pain : reports: Reviewed and negative Skin: reports: Reviewed and negative Musculoskeletal: reports: Reviewed and negative Neurologic: reports: Reviewed and negative Psychiatric: reports: Reviewed and negative Endocrine: reports: Reviewed and negative Immunocompromised: reports: Reviewed and negative PD PAST MEDICAL HISTORY - Present Medications Home Medications: Ambulatory Orders Medication Instructions Recorded Confirmed amLODIPine [Norvasc] 5 mg PO DAILY 07/26/16 08/23/19 metFORMIN [Glucophage] 500 mg PO BID 07/26/16 08/23/19 Oxycodone HCl/Acetaminophen 1 - 2 each PO Q6H PRN #14 tablet 11/09/17 08/23/19 [Percocet 5-325 mg Tablet] Naproxen 375 mg PO BID #20 tablet 07/27/18 08/23/19 Meloxicam [Mobic] 15 mg PO DAILY PRN #20 tablet 07/11/19 08/23/19 predniSONE [Deltasone] 10 mg PO [id number] #42 tab 07/11/19 08/23/19 Furosemide [Lasix] 20 mg PO DAILY #10 tablet 07/25/19 08/23/19 Albuterol Sulfate [Albuterol 2 puffs INH QID 08/23/19 08/23/19 Sulfate Hfa] Atorvastatin Calcium [Lipitor] 80 mg PO QPM 08/23/19 08/23/19 Duloxetine HCl [Cymbalta] 60 mg PO DAILY 08/23/19 08/23/19 Gabapentin 800 mg PO TID 08/23/19 08/23/19 Metoprolol Succinate [Toprol Xl] 100 mg PO BID 08/23/19 08/23/19 Tamsulosin HCl [Flomax] 0.4 mg PO QPM 08/23/19 08/23/19 Nitroglycerin [Nitrostat] 0.4 mg SL Q5MIN PRN #100 tab.subl 08/24/19 oxyCODONE ER [OxyCONTIN] 10 mg PO Q12H #6 tablet 08/24/19 Oxycodone HCl [Oxycontin] 10 mg PO Q12H #6 tab.er.12h 08/25/19 - Allergies Allergies/Adverse Reactions: Allergies Allergy/AdvReac Type Severity Reaction Status Date / Time No Known Drug Allergies Allergy Verified 08/23/19 11:27 PD ED PE NORMAL - Vitals Vital signs reviewed: Yes - General General: Alert and oriented X 3, No acute distress - HEENT HEENT: PERRL, Moist mucous membranes - Neck Neck: Supple, no meningeal sign - Cardiac Cardiac: RRR, No murmur, Strong equal pulses - Respiratory Respiratory: No respiratory distress, Clear bilaterally - Abdomen Abdomen: Normal bowel sounds, Soft, Non tender, Non distended, No organomegaly, Other (No midline abdominal pulsatile mass) - Derm Derm: Warm and dry - Extremities Extremities: No deformity - Neuro Neuro: Alert and oriented X 3 - Psych Psych: Normal mood, Normal affect Results - Vitals Vitals: Vital Signs - 24 hr 08/28/19 08/28/19 08/28/19 02:24 02:29 05:00 Temperature 36.9 C Heart Rate 59 L 60 Respiratory 16 17 Rate Blood Pressure 131/82 H 115/70 Blood Pressure 113/76 [Right] O2 Saturation 98 98 08/28/19 05:10 Temperature Heart Rate 55 L Respiratory 18 Rate Blood Pressure 115/70 Blood Pressure [Right] O2 Saturation 99 Oxygen O2 Source Room air - EKG (time done) 02:25 Rate: Other (no stemi) 05:25 Rate: Other (no stemi) - Labs Labs: Laboratory Tests 08/28/19 08/28/19 08/28/19 02:30 02:30 02:30 WBC 6.6 RBC 3.37 L Hgb 10.8 L Hct 31.2 L MCV 92.6 MCH 32.0 H MCHC 34.6 RDW 12.6 Plt Count 132 MPV 9.8 Neut # (Auto) 4.2 Lymph # (Auto) 1.5 [place] # (Auto) 0.5 Eos # (Auto) 0.4 Baso # (Auto) 0.1 Absolute Nucleated RBC 0.00 Nucleated RBC % 0.0 PT 11.9 INR 1.0 APTT 36.4 H Sodium 132 L Potassium 5.1 H Chloride 100 L Carbon Dioxide 24 Anion Gap 8.0 BUN 22 H Creatinine 1.5 H Estimated GFR (MDRD) 47 L Glucose 137 H Lactic Acid Calcium 8.6 Magnesium 2.1 Total Bilirubin 0.6 AST 18 ALT 12 Alkaline Phosphatase 41 L Total Creatine Kinase 43 Troponin I High Sens B-Natriuretic Peptide Total Protein 6.5 L Albumin 4.0 Globulin 2.5 Albumin/Globulin Ratio 1.6 Lipase 32 TSH Urine Color Urine Clarity Urine pH Ur Specific [place] Urine Protein Urine Glucose (UA) Urine Ketones Urine Occult Blood Urine Nitrite Urine Bilirubin Urine Urobilinogen Ur Leukocyte Esterase Ur Microscopic Review Urine Culture Comments Urine Opiates Screen Ur Oxycodone Screen Urine Methadone Screen Ur Propoxyphene Screen Ur Barbiturates Screen Ur Tricyclics Screen Ur Phencyclidine Scrn Ur Amphetamine Screen U Methamphetamines Scrn U Benzodiazepines Scrn Urine Cocaine Screen U Cannabinoids Screen Ethyl Alcohol < 5.0 08/28/19 08/28/19 08/28/19 02:30 02:30 02:30 WBC RBC Hgb Hct MCV MCH MCHC RDW Plt Count MPV Neut # (Auto) Lymph # (Auto) [place] # (Auto) Eos # (Auto) Baso # (Auto) Absolute Nucleated RBC Nucleated RBC % PT INR APTT Sodium Potassium Chloride Carbon Dioxide Anion Gap BUN Creatinine Estimated GFR (MDRD) Glucose Lactic Acid 1.9 Calcium Magnesium Total Bilirubin AST ALT Alkaline Phosphatase Total Creatine Kinase Troponin I High Sens B-Natriuretic Peptide 110 H Total Protein Albumin Globulin Albumin/Globulin Ratio Lipase TSH 1.14 Urine Color Urine Clarity Urine pH Ur Specific [place] Urine Protein Urine Glucose (UA) Urine Ketones Urine Occult Blood Urine Nitrite Urine Bilirubin Urine Urobilinogen Ur Leukocyte Esterase Ur Microscopic Review Urine Culture Comments Urine Opiates Screen Ur Oxycodone Screen Urine Methadone Screen Ur Propoxyphene Screen Ur Barbiturates Screen Ur Tricyclics Screen Ur Phencyclidine Scrn Ur Amphetamine Screen U Methamphetamines Scrn U Benzodiazepines Scrn Urine Cocaine Screen U Cannabinoids Screen Ethyl Alcohol 08/28/19 08/28/19 02:30 02:53 WBC RBC Hgb Hct MCV MCH MCHC RDW Plt Count MPV Neut # (Auto) Lymph # (Auto) [place] # (Auto) Eos # (Auto) Baso # (Auto) Absolute Nucleated RBC Nucleated RBC % PT INR APTT Sodium Potassium Chloride Carbon Dioxide Anion Gap BUN Creatinine Estimated GFR (MDRD) Glucose Lactic Acid Calcium Magnesium Total Bilirubin AST ALT Alkaline Phosphatase Total Creatine Kinase Troponin I High Sens 5.4 B-Natriuretic Peptide Total Protein Albumin Globulin Albumin/Globulin Ratio Lipase TSH Urine Color YELLOW Urine Clarity CLEAR Urine pH 6.5 Ur Specific [place] 1.010 Urine Protein NEGATIVE Urine Glucose (UA) NEGATIVE Urine Ketones NEGATIVE Urine Occult Blood NEGATIVE Urine Nitrite NEGATIVE Urine Bilirubin NEGATIVE Urine Urobilinogen 0.2 (NORMAL) Ur Leukocyte Esterase NEGATIVE Ur Microscopic Review NOT INDICATED Urine Culture Comments NOT INDICATED Urine Opiates Screen POSITIVE H Ur Oxycodone Screen NEGATIVE Urine Methadone Screen NEGATIVE Ur Propoxyphene Screen NEGATIVE Ur Barbiturates Screen NEGATIVE Ur Tricyclics Screen NEGATIVE Ur Phencyclidine Scrn NEGATIVE Ur Amphetamine Screen NEGATIVE U Methamphetamines Scrn NEGATIVE U Benzodiazepines Scrn NEGATIVE Urine Cocaine Screen NEGATIVE U Cannabinoids Screen POSITIVE H Ethyl Alcohol PD MEDICAL DECISION MAKING - ED course Complexity details: reviewed old records, reviewed results, re-evaluated patient, considered differential (Unsure the patient's etiology he has a negative CAT scan the abdomen pelvis negative chest x-ray is negative troponin x2, negative EKG x2. His story is not concerning for pulmonary embolism.), d/w patient, d/w family Departure - Departure Disposition: 01 Home, Self Care Clinical Impression: Chest pain Qualifiers: Chest pain type: unspecified Qualified Code(s): R07.9 - Chest pain, unspecified Condition: Stable Instructions: ED Heart Disease Risk Factors Follow-Up: Lisa Knutson DO [Primary Care Provider] - Tomorrow Comments: Follow-up with your primary care provider tomorrow. Follow-up with your nurse anesthetist as scheduled.
[2019-08-28 02:46] LABS: BASOPHILS # (AUTO) 0.1 10^3/uL (0.0-0.1); BASOPHILS % (AUTO) 0.9 %; EOSINOPHILS # (AUTO) 0.4 10^3/uL (0.0-0.7); EOSINOPHILS % (AUTO) 5.5 %; HGB - HEMOGLOBIN 10.8 g/dL (14.0-18.0); LYMPHOCYTES # (AUTO) 1.5 10^3/uL (1.5-3.5); LYMPHOCYTES % (AUTO) 22.2 %; MEAN CORPUSCULAR HGB CONC 34.6 g/dL (32.0-36.0); MEAN CORPUSCULAR VOLUME 92.6 fL (80.0-94.0); MEAN PLATELET VOLUME 9.8 fL (7.4-11.4); MONOCYTES # (AUTO) 0.5 10^3/uL (0.0-1.0); NEUTROPHILS # (AUTO) 4.2 10^3/uL (1.5-6.6); NEUTROPHILS % (AUTO) 64.2 %; PLT - PLATELET COUNT 132 10^3/uL (130-450); RED BLOOD COUNT 3.37 10^6/uL (4.70-6.10); RED CELL DISTRIBUTION WIDTH 12.6 % (12.0-15.0); WHITE BLOOD COUNT 6.6 x10^3/uL (4.8-10.8)
[2019-08-28 02:51] LABS: PT - PROTHROMBIN TIME 11.9 secs (9.9-12.6)
[2019-08-28 02:57] LABS: MUDS CUTOFF CONCENTRATIONS CUTOFF CONC BELOW:
[2019-08-28 02:58] LABS: PARTIAL THROMBOPLASTIN TIME 36.4 secs (24.9-33.3)
[2019-08-28 02:59] LABS: BILIRUBIN,URINE NEGATIVE (NEGATIVE); GLUCOSE, URINE (UA) NEGATIVE (NEGATIVE); KETONES,URINE (UA) NEGATIVE (NEGATIVE); LEUKOCYTE ESTERASE, URINE NEGATIVE (NEGATIVE); NITRITE,URINE NEGATIVE (NEGATIVE); OCCULT BLOOD,URINE NEGATIVE (NEGATIVE); PH,URINE 6.5 PH (5.0-7.5); PROTEIN,URINE NEGATIVE (NEGATIVE); UROBILINOGEN,URINE 0.2 (NORMAL) E.U./dL (NORMAL)
[2019-08-28 03:00] LABS: CLARITY,URINE CLEAR (CLEAR)
[2019-08-28 03:08] LABS: ALBUMIN/GLOBULIN RATIO 1.6 (1.0-2.2); ALKALINE PHOSPHATASE 41 IU/L (42-121); ALT ALANINE AMINOTRANSFERASE 12 IU/L (10-60); AST ASPARTATE AMINOTRANSFERASE 18 IU/L (10-42); BILIRUBIN,TOTAL 0.6 mg/dL (0.2-1.0); BUN - BLOOD UREA NITROGEN 22 mg/dL (6-20); CALCIUM 8.6 mg/dL (8.5-10.3); CARBON DIOXIDE - CO2 24 mmol/L (21-32); CHLORIDE 100 mmol/L (101-111); CK- CREATINE KINASE 43 IU/L (22-269); CREATININE 1.5 mg/dL (0.6-1.2); GLUCOSE 137 mg/dL (70-100); LIPASE 32 U/L (22-51); MAGNESIUM 2.1 mg/dL (1.7-2.8); SODIUM 132 mmol/L (135-145); TOTAL PROTEIN 6.5 g/dL (6.7-8.2)
[2019-08-28 03:13] LABS: AMPHETAMINE SCREEN,URINE NEGATIVE (NEGATIVE); BENZODIAZEPINES SCREEN, URINE NEGATIVE (NEGATIVE); COCAINE SCREEN URINE NEGATIVE (NEGATIVE); METHADONE SCREEN, URINE NEGATIVE (NEGATIVE); METHAMPHETAMINES SCREEN, URINE NEGATIVE (NEGATIVE); OPIATE SCREEN, URINE POSITIVE (NEGATIVE); OXYCODONE SCREEN, URINE NEGATIVE (NEGATIVE); PROPOXYPHENE SCREEN, URINE NEGATIVE (NEGATIVE); TRICYCLIC ANTIDEPRESSANT,URINE NEGATIVE (NEGATIVE)
[2019-08-28] MEDS ORDERED: ONDANSETRON 4 MG/2 ML VIAL IVP STA (03:36)
[2019-08-28] MEDS ORDERED: MORPHINE 2 MG/ML CARPUJECT IVP STA (03:36)
[2019-08-28 06:06] VITALS: BP 107/71
--- NOTE | 2019-08-28 09:00 | XRAY Report ---
PROCEDURE: Chest 1 View X-Ray INDICATIONS: cp TECHNIQUE: One view of the chest was acquired. COMPARISON: Chest x-ray 08/23/2019. FINDINGS: Surgical changes and devices: Sternotomy and CABG. Lungs and pleura: No pleural effusions or pneumothorax. Lungs are clear. Mediastinum: Mediastinal contours appear normal. Heart size is normal. Bones and chest wall: No suspicious bony lesions. Overlying soft tissues appear unremarkable. Note is made of right shoulder arthroplasty and severe left shoulder joint degeneration. IMPRESSION: No acute cardiopulmonary disease. Reviewed by: Aleshia Acuna MD on 08/28/2019 8:58 AM PDT Approved by: Aleshia Acuna MD on 08/28/2019 8:58 AM PDT Station ID: [id number]
--- NOTE | 2019-08-28 10:02 | CT Report ---
PROCEDURE: Abdomen/Pelvis WO INDICATIONS: abd pain TECHNIQUE: Noncontrast 5 mm thick sections acquired from the diaphragms to the symphysis. 5 mm coronal and sagi ttal reformats were then performed. For radiation dose reduction, the following was used: automated exposure control, adjustment of mA and/or kV according to patient size. COMPARISON: CT Pelvis, 07/27/2018.. FINDINGS: Image quality: Excellent. ABDOMEN: Lung bases: Lung bases are clear. Heart size is normal. Solid organs: Liver and spleen are normal in size. Gallbladder contains calcified gallstones. Panc reas is normal in contours. No adrenal nodules. Kidneys are normal in size, without hydronephrosis or nephrolithiasis. Peritoneum and bowel: Unenhanced bowel loops demonstrate normal wall thickness and caliber. No free fluid or air. Nodes and vessels: No retroperitoneal or mesenteric adenopathy by size criteria. Aorta and inferior vena cava are normal in caliber. Severe atherosclerosis. Miscellaneous: No ventral hernias. PELVIS: Genitourinary: Bladder wall thickness is normal. Miscellaneous: No inguinal hernias or adenopathy. Bones: No suspicious bony lesions. No vertebral body compression fractures. Degenerative and post surgical changes in lumbar spine. IMPRESSION: 1. No acute intra-abdominal or pelvic process. 2. Cholelithiasis. 3. Extensive atherosclerosis. 4. Degenerative and postsurgical changes in lumbar spine. No significant discrepancy with the preliminary report. Reviewed by: Aleshia Acuna MD on 08/28/2019 10:01 AM PDT Approved by: Aleshia Acuna MD on 08/28/2019 10:01 AM PDT Station ID: [id number]
== END 2019-08-28 05:59 | disposition home or self-care (01) ==
LOC: EDUNIT# → ED 02:19
DX: R07.9 Chest pain, unspecified (principal); K80.20 Calculus of gallbladder without cholecystitis without obstruction; M51.36 Other intervertebral disc degeneration, lumbar region
CPT/HCPCS: 36415; 71045; 74176; 80053; 80306; 80320; 81001; 81003; 82550; 83605; 83690; 83735; 83880; 84443; 84484; 85025; 85610; 85730; 87086; 93005; 96374; 99283

== ENCOUNTER 2019-08-29 11:07 | Emergency (ER) | payer MEDICARE, OTHER ==
[2019-08-29 11:53] LABS: BASOPHILS # (AUTO) 0.1 10^3/uL (0.0-0.1); BASOPHILS % (AUTO) 0.8 %; EOSINOPHILS # (AUTO) 0.4 10^3/uL (0.0-0.7); EOSINOPHILS % (AUTO) 5.8 %; HGB - HEMOGLOBIN 11.3 g/dL (14.0-18.0); LYMPHOCYTES # (AUTO) 1.2 10^3/uL (1.5-3.5); LYMPHOCYTES % (AUTO) 18.1 %; MEAN CORPUSCULAR VOLUME 94.1 fL (80.0-94.0); MEAN PLATELET VOLUME 9.5 fL (7.4-11.4); MONOCYTES # (AUTO) 0.4 10^3/uL (0.0-1.0); NEUTROPHILS # (AUTO) 4.5 10^3/uL (1.5-6.6); PLT - PLATELET COUNT 125 10^3/uL (130-450); RED BLOOD COUNT 3.53 10^6/uL (4.70-6.10); RED CELL DISTRIBUTION WIDTH 12.4 % (12.0-15.0); WHITE BLOOD COUNT 6.5 x10^3/uL (4.8-10.8)
[2019-08-29 12:06] LABS: ALBUMIN 4.3 g/dL (3.2-5.5); ALBUMIN/GLOBULIN RATIO 1.8 (1.0-2.2); BILIRUBIN,TOTAL 0.6 mg/dL (0.2-1.0); CALCIUM 9.5 mg/dL (8.5-10.3); CREATININE 1.4 mg/dL (0.6-1.2); TOTAL PROTEIN 6.7 g/dL (6.7-8.2)
--- NOTE | 2019-08-29 12:09 | XRAY Report ---
PROCEDURE: Chest 1 View X-Ray INDICATIONS: Chest pain TECHNIQUE: One view of the chest was acquired. COMPARISON: 08/28/2019 FINDINGS: Surgical changes and devices: Median sternotomy wires are again seen. Right shoulder prosthesis is al so noted. Lungs and pleura: No pleural effusions or pneumothorax. Lungs are clear. Mediastinum: Mediastinal contours appear normal. Heart size is normal. Bones and chest wall: No suspicious bony lesions. Overlying soft tissues appear unremarkable. IMPRESSION: No acute cardiopulmonary pathology. No significant changes from previous day. Reviewed by: Al Hatch MD on 08/29/2019 12:08 PM PDT Approved by: Al Hatch MD on 08/29/2019 12:08 PM PDT Station ID: [id number]
--- NOTE | 2019-08-29 13:20 | ED Physician Documentation ---
PD HPI CHEST PAIN - Stated complaint Stated Complaint: CHEST PX - Chief complaint Chief Complaint: Cardiac - History obtained from History obtained from: Patient - History of Present Illness Timing - onset: How many weeks ago (1 week or more of intermittent substernal pain. In hospital last week for it and had negative Troponins, and then stress test that was okay. Had similar symptoms couple days ago and seen in ER, with negative ECG and trop again. Has appt with Dr. Fung, Cardiology, this week 3 days in follow up.) Timing - onset during: Rest. No: Light activity Timing - duration: Minutes, Hours Timing - details: Abrupt onset, Still present Quality: Aching Location: Substernal, Epigastric Radiation: Back Improved by: Antacids. No: Rest Worsened by: Eating. No: Exertion, Inspiration Associated symptoms: No: Shortness of air, Diaphoresis, General Weakness, Palpitations, Cough Similar symptoms before: No diagnosis Recently seen: Emergency Dept (seen 2 days ago and last week with similar. Heart evaluated without findings. possible area poor perfusion inferiorly on nuclear stress. Not reversible, so does not seem ischemic. Possible prior infarct.), Admitted Review of Systems Constitutional: denies: Fever, Chills Nose: denies: Rhinorrhea / runny nose, Congestion Throat: denies: Sore throat Respiratory: denies: Cough GI: reports: Nausea (with decreased appetite the past week). denies: Vomiting, Diarrhea, Bloody / black stool Neurologic: denies: Generalized weakness, Focal weakness, Numbness, Near syncope PD PAST MEDICAL HISTORY - Past Medical History Cardiovascular: Hypertension, High cholesterol, Coronary artery disease Respiratory: Sleep apnea, CPAP use Neuro: Peripheral neuropathy Endocrine/Autoimmune: Type 2 diabetes GI: None : Kidney stones HEENT: None Psych: Depression Musculoskeletal: Osteoarthritis, Chronic back pain Derm: None - Past Surgical History Past Surgical History: Yes General: Colonoscopy Ortho: Shoulder arthroplasty, Spine surgery Cardiovascular: CABG HEENT: Rhinoplasty - Present Medications Home Medications: Ambulatory Orders Medication Instructions Recorded Confirmed amLODIPine [Norvasc] 5 mg PO DAILY 07/26/16 08/23/19 metFORMIN [Glucophage] 500 mg PO BID 07/26/16 08/23/19 Oxycodone HCl/Acetaminophen 1 - 2 each PO Q6H PRN #14 tablet 11/09/17 08/23/19 [Percocet 5-325 mg Tablet] Naproxen 375 mg PO BID #20 tablet 07/27/18 08/23/19 Meloxicam [Mobic] 15 mg PO DAILY PRN #20 tablet 07/11/19 08/23/19 predniSONE [Deltasone] 10 mg PO [id number] #42 tab 07/11/19 08/23/19 Furosemide [Lasix] 20 mg PO DAILY #10 tablet 07/25/19 08/23/19 Albuterol Sulfate [Albuterol 2 puffs INH QID 08/23/19 08/23/19 Sulfate Hfa] Atorvastatin Calcium [Lipitor] 80 mg PO QPM 08/23/19 08/23/19 Duloxetine HCl [Cymbalta] 60 mg PO DAILY 08/23/19 08/23/19 Gabapentin 800 mg PO TID 08/23/19 08/23/19 Metoprolol Succinate [Toprol Xl] 100 mg PO BID 08/23/19 08/23/19 Tamsulosin HCl [Flomax] 0.4 mg PO QPM 08/23/19 08/23/19 Nitroglycerin [Nitrostat] 0.4 mg SL Q5MIN PRN #100 tab.subl 08/24/19 oxyCODONE ER [OxyCONTIN] 10 mg PO Q12H #6 tablet 08/24/19 Oxycodone HCl [Oxycontin] 10 mg PO Q12H #6 tab.er.12h 08/25/19 Famotidine 20 mg PO BID #20 tablet 08/29/19 Hydrocodone/Acetaminophen [[place] 1 each PO Q6H PRN #15 tablet 08/29/19 5-325 Tablet] Lidocaine Viscous 2% [Xylocaine 5 ml PO Q4H PRN #100 ml 08/29/19 Viscous 2%] Omeprazole 20 mg PO DAILY #30 capsule. 08/29/19 - Allergies Allergies/Adverse Reactions: Allergies Allergy/AdvReac Type Severity Reaction Status Date / Time No Known Drug Allergies Allergy Verified 08/29/19 11:16 - Social History Does the pt smoke?: No Smoking Status: Never smoker Does the pt drink ETOH?: Yes Does the pt have substance abuse?: Yes - Immunizations Immunizations are current?: Yes - POLST Patient has POLST: No PD ED PE NORMAL - Vitals Vital signs reviewed: Yes - General General: Alert and oriented X 3, No acute distress, Well developed/nourished - HEENT HEENT: Moist mucous membranes, Pharynx benign - Neck Neck: Supple, no meningeal sign, No adenopathy - Cardiac Cardiac: RRR, No murmur - Respiratory Respiratory: Clear bilaterally - Abdomen Abdomen: Normal bowel sounds, Soft, Non distended, No organomegaly, Other (mild tender epigastric without guarding. ) - Rectal Rectal: Deferred - Back Back: No CVA TTP - Derm Derm: Normal color, Warm and dry - Extremities Extremities: Normal ROM s pain, No edema, No calf tenderness / cord - Neuro Neuro: Alert and oriented X 3, No motor deficit, Normal speech Results - Vitals Vitals: Vital Signs - 24 hr 08/29/19 08/29/19 08/29/19 11:16 13:20 14:42 Temperature 36.3 C L 37 C 36.4 C L Heart Rate 59 L 56 L 65 Respiratory 16 18 16 Rate Blood Pressure 139/80 H 162/75 H 141/87 H O2 Saturation 100 100 96 Oxygen O2 Source Room air - EKG (time done) 11:13 Rate: Rate (enter#) (57) Rhythm: Sinus bradycardia [place]: Normal Intervals: Normal MO, RBBB (incomplete) QRS: Normal Ischemia: Normal ST segments. No: ST elevation c/w ischemia, ST depression Compare to prior EKG: Unchanged from prior EKG - Labs Labs: Laboratory Tests 08/29/19 08/29/19 08/29/19 11:49 11:49 11:49 WBC 6.5 RBC 3.53 L Hgb 11.3 L Hct 33.2 L MCV 94.1 H MCH 32.0 H MCHC 34.0 RDW 12.4 Plt Count 125 L MPV 9.5 Neut # (Auto) 4.5 Lymph # (Auto) 1.2 L [place] # (Auto) 0.4 Eos # (Auto) 0.4 Baso # (Auto) 0.1 Absolute Nucleated RBC 0.00 Nucleated RBC % 0.0 Sodium 137 Potassium 4.7 Chloride 99 L Carbon Dioxide 28 Anion Gap 10.0 BUN 26 H Creatinine 1.4 H Estimated GFR (MDRD) 51 L Glucose 116 H Calcium 9.5 Total Bilirubin 0.6 AST 16 ALT 14 Alkaline Phosphatase 41 L Troponin I High Sens 7.2 Total Protein 6.7 Albumin 4.3 Globulin 2.4 Albumin/Globulin Ratio 1.8 Lipase 39 - Rads (name of study) chest xray Radiology: Prelim report reviewed (no acute process, similar to prior), See rad report PD MEDICAL DECISION MAKING - ED course Complexity details: reviewed results, re-evaluated patient (he feels better with GI cocktail. He is on Celebrex regularly for low back pain. To discontinue this and take Tylenol 500 mg QID instead. Hold baby ASA for days to a week, and then resume when stomach doing better, since benefit of baby aspirin is good if he ca n subsequently tolerate it. ), considered differential (has had negative troponins and normal ECG and stress test. Pain improves with antacids but not consistent. Consider gastritis. ), d/w patient Departure - Departure Disposition: 01 Home, Self Care Clinical Impression: Chest pain Qualifiers: Chest pain type: precordial pain Qualified Code(s): R07.2 - Precordial pain Gastritis, acute Qualifiers: Gastritis type: unspecified gastritis Gastritis bleeding: without bleeding Qualified Code(s): K29.00 - Acute gastritis without bleeding Condition: Stable Record reviewed to determine appropriate education?: Yes Instructions: ED Gastritis Follow-Up: Lisa Knutson DO [Primary Care Provider] - Dmitry Fung MD [Provider Admit Priv/Credential] - Prescriptions: Famotidine 20 mg PO BID #20 tablet Hydrocodone/Acetaminophen [[place] 5-325 Tablet] 1 each PO Q6H PRN #15 tablet PRN Reason: Pain Omeprazole 20 mg PO DAILY #30 capsule. Lidocaine Viscous 2% [Xylocaine Viscous 2%] 5 ml PO Q4H PRN #100 ml PRN Reason: Pain Comments: Small frequent fluids and bland foods such as starches pastas rice etc. with no caffeine alcohol or spicy foods. Use the famotidine twice daily for the next week and concurrently omeprazole daily for the next month. These are to reduce the stomach acid production. Use antacid such as Maalox or Mylanta and to that add the lidocaine as needed for stomach pains. Do not use any anti-inflammatories such as naproxen or ibuprofen as this can further irritate your stomach. Tylenol if needed for pains; add hydrocodone if needed. Follow-up with the service line layer as planned later this week and with your primary care otherwise regarding the apparent gastritis stomach pains. Discharge Date/Time: 08/29/19 14:52
[2019-08-29] MEDS ORDERED: LIDOCAINE VISCOUS 2% 15 ML UDC MM STA (13:33)
[2019-08-29] MEDS ORDERED: MAG HYDROX/AL HYDROX/SIMETH 30 ML UDC PO STA (13:33)
[2019-08-29] MEDS ORDERED: HYDROcod/ACETAM 5/325 MG TABLET PO STA (13:33)
[2019-08-29] MEDS ORDERED: ONDANSETRON ODT 4 MG TABLET TL STA (13:34)
[2019-08-29] MEDS ORDERED: FAMOTIDINE 20 MG TABLET PO STA (13:34)
[2019-08-29 14:43] VITALS: BP 141/87
== END 2019-08-29 14:52 | disposition home or self-care (01) ==
LOC: ED 11:07
DX: K29.00 Acute gastritis without bleeding (principal); R07.2 Precordial pain; I45.10 Unspecified right bundle-branch block; R00.1 Bradycardia, unspecified; I10 Essential (primary) hypertension; I25.10 Atherosclerotic heart disease of native coronary artery without angina pectoris; Z95.1 Presence of aortocoronary bypass graft; E11.42 Type 2 diabetes mellitus with diabetic polyneuropathy; Z79.84 Long term (current) use of oral hypoglycemic drugs
CPT/HCPCS: 36415; 71045; 80053; 83690; 84484; 85025; 93005; 99284; A9270; Q0162

== ENCOUNTER 2019-09-08 14:03 | Outpatient (CLI) | payer MEDICARE, OTHER ==
[2019-09-08 15:16] VITALS: BP 120/80
--- NOTE | 2019-09-08 15:16 | SLEEP CARE CONSULTATION ---
Information from patient questionnaire entered by Yolis Mcmahon. I have reviewed and concur with the information entered by Yolis Mcmahon. This document represents the service I personally performed and the decisions made by me, Eloise Paz, RN, MSN, [employer]CH[employer]ICIAN. History of Present Illness Service Date and Time: 09/08/2019 1403 Previous diagnosis: Moderate, Obstructive Sleep Apnea-Hypopnea Syndrome AHI: 28.1 (in 2019) Reason for follow up: other (2 month with pressure change) Equipment type: CPAP Equipment obtained from: [email or web address] Mask style: Nasal Backup mask available: Yes (old mask ) Last cushion change: about 10 days Prior sleep studies: Yes Year and Where: 2019 - [facility] Type of Sleep Study: Polysomnography CPAP Compliance Data - Data Reviewed with Patient Average duration of nightly device use: 5.5 Compliance rate %: 70 Current pressure setting (cmH2O): 12-14 Humidity settin Heated hose settin Average residual AHI: 15.6 (less the past 10 days with new mask) Central apnea: 4.9 Obstructive apnea: 7.3 Hypopnea: 3.4 Average large leak: 33 min 51 sec Oxygen usage: Intermittent Subjective Patient concerns: reports: dry mouth, nose, throat (moderate / intermittent that he wonders due to running out of water ). denies: aerophagia, mask discomfort, air blowing in eyes, mask leak noise, condensation in mask/hose, nasal congestion, epistaxis, other Observed to snore while using device: No Current pressure setting perceived as: comfortable (was too high initially but now comfortable but did not know about ramp) On therapy, patient: reports: sleeping better, awakening more refreshed, being more awake and alert during the day, more rested overall (intermittent benefit from CPAP). denies: drowsiness while driving Initial [place] Sleepiness Scale score: 12 (in 2019) Current [place] Sleepiness Scale score: 6 Allergies and Home Medications Home medication list reviewed: No ( ) Review of Systems Review of systems same as previous: Yes Physical Exam Blood Pressure: 120/80 Cuff size: long Heart Rate: 82 O2 Saturation: 98 Height: 6 ft Weight: 262 lb 12.8 oz Body Mass Index: 35.6 BMI Classification: Obese Impression and Plan 1. Obstructive Sleep Apnea-Hypopnea Syndrome, moderate, with good treatment compliance and better apnea control. On CPAP therapy, the patient has better sleep quality and is more rested overall. It appears that the pressure was too high initially but now comfortable. He was not aware of the ramp feature and I explained rationale for use. Also the residual AHI was elevated in moderate range until he changed his mask. Thus I will not change pressure unless when I am able to download of past 2 weeks later the AHI is still elevated above 5 and informed patient. He has improved his compliance from 30-40% to 70%. Compliance guidelines again reviewed. I also discussed that maximum benefit of CPAP is when he uses it with all sleep. Since he only sleeps about 5 - 6 hours a night as wakes alert early, I explained most people require 7-9 hours for optiomal mental and physical function. Less than 5-6 hours consistently can increase health risks.Thus he was advised to strive for 7 hours of sleep with 6 hours being his minimal goal. If he finds he has oral dryness when despite use of water in reservoir, he reduce heated hose setting to allow more moisture. Patient's apnea severity and rationale for treatment to reduce apnea, improve sleep qual ity and reduce cardiovascular and cerebrovascular events was reviewed. I also reviewed the benefit of consistent device use of CPAP depression/anxiety. * Continue auto CPAP pressure at [id number] * Obtain more sleep * Notify me if snoring with mask or feeling that the pressure is too much or too little * Attempt to lose weight * Call this office if any problems using CPAP * Return for follow up in 6 months , or sooner if concerns arise Addendum: A compliance report was downloaded for past 2 weeks and showed his residual AHI was mildly elevated at 7.6 with CA 1.5, OA 2.3, hypopnea 3.7. Thus I will slightly increase his autoCPAP range to [id number]. Patient will be informed of change. Visit Type: In Office Time Spent with Patient (minutes): 32 Provider Statement: I spent 100% of the Face to Face Visit with the patient with greater than 50% spent counseling the patient and coordination of care.
== END 2019-09-08 14:04 | disposition home or self-care (01) ==
LOC: SC 14:03
PROVIDERS: ATTEND Nurse Practitioner Family
DX: G47.33 Obstructive sleep apnea (adult) (pediatric) (principal); E66.9 Obesity, unspecified; Z68.35 Body mass index [BMI] 35.0-35.9, adult
CPT/HCPCS: 99214; G0463; 99212

== ENCOUNTER 2020-02-09 08:00 | Outpatient (CLI) | payer MEDICARE, OTHER ==
[2020-02-09 18:19] LABS: BASOPHILS # (AUTO) 0.1 10^3/uL (0.0-0.1); EOSINOPHILS # (AUTO) 0.2 10^3/uL (0.0-0.7); EOSINOPHILS % (AUTO) 4.6 %; HGB - HEMOGLOBIN 12.1 g/dL (14.0-18.0); LYMPHOCYTES # (AUTO) 1.1 10^3/uL (1.5-3.5); LYMPHOCYTES % (AUTO) 22.7 %; MEAN CORPUSCULAR HEMOGLOBIN 31.8 pg (27.0-31.0); MEAN CORPUSCULAR VOLUME 96.3 fL (80.0-94.0); MEAN PLATELET VOLUME 10.4 fL (7.4-11.4); MONOCYTES # (AUTO) 0.4 10^3/uL (0.0-1.0); MONOCYTES % (AUTO) 7.8 %; NEUTROPHILS # (AUTO) 3.2 10^3/uL (1.5-6.6); NEUTROPHILS % (AUTO) 63.7 %; PLT - PLATELET COUNT 150 10^3/uL (130-450); RED BLOOD COUNT 3.81 10^6/uL (4.70-6.10); RED CELL DISTRIBUTION WIDTH 13.3 % (12.0-15.0)
[2020-02-09 18:36] LABS: CREATININE,URINE 206.5 mg/dL; MICROALBUM/CREATININE RATIO,UR 64.4 ug/mg (<30.0); MICROALBUMIN,URINE 13.3 mg/dL (0-300.0)
[2020-02-09 18:49] LABS: ALBUMIN 4.3 g/dL (3.2-5.5); ALBUMIN/GLOBULIN RATIO 1.6 (1.0-2.2); ALKALINE PHOSPHATASE 41 IU/L (42-121); ALT ALANINE AMINOTRANSFERASE 13 IU/L (10-60); AST ASPARTATE AMINOTRANSFERASE 18 IU/L (10-42); BILIRUBIN,TOTAL 0.8 mg/dL (0.2-1.0); BUN - BLOOD UREA NITROGEN 20 mg/dL (6-20); CALCIUM 9.2 mg/dL (8.5-10.3); CARBON DIOXIDE - CO2 24 mmol/L (21-32); CHLORIDE 103 mmol/L (101-111); CHOLESTEROL 181 mg/dL; CREATININE 1.4 mg/dL (0.6-1.2); GLUCOSE 135 mg/dL (70-100); HDL CHOLESTEROL 30 mg/dL; LDL CHOLESTEROL,CALCULATED 103 mg/dL; LDL/HDL RATIO 3.4 (<3.6); SODIUM 136 mmol/L (135-145); VLDL CHOLESTEROL 48 mg/dL
[2020-02-09 20:57] LABS: HEMOGLOBIN A1c% 5.7 % (4.27-6.07)
== END 2020-02-09 23:59 | disposition home or self-care (01) ==
LOC: LAB.WCP 08:00
PROVIDERS: ATTEND Family Medicine
DX: E11.9 Type 2 diabetes mellitus without complications (principal)
CPT/HCPCS: 36415; 80053; 80061; 82043; 82570; 83036; 83721; 84443; 85025

== ENCOUNTER 2020-03-30 09:53 | Emergency (ER) | payer MEDICARE, OTHER ==
[2020-03-30 10:30] LABS: BILIRUBIN,URINE NEGATIVE (NEGATIVE); GLUCOSE, URINE (UA) NEGATIVE (NEGATIVE); KETONES,URINE (UA) NEGATIVE (NEGATIVE); LEUKOCYTE ESTERASE, URINE NEGATIVE (NEGATIVE); NITRITE,URINE NEGATIVE (NEGATIVE); OCCULT BLOOD,URINE NEGATIVE (NEGATIVE); PH,URINE 7.5 PH (5.0-7.5); PROTEIN,URINE 30 mg/dL (NEGATIVE); UROBILINOGEN,URINE 0.2 (NORMAL) E.U./dL (NORMAL)
[2020-03-30 10:33] LABS: CLARITY,URINE CLEAR (CLEAR)
[2020-03-30 10:37] LABS: RBC,URINE None Seen /HPF (0-5)
[2020-03-30 10:38] LABS: BACTERIA,URINE None Seen /HPF (None Seen); SQUAMOUS EPITHELIAL CELL,UR RARE Squamous (<= Few)
[2020-03-30 10:51] LABS: BASOPHILS # (AUTO) 0.1 10^3/uL (0.0-0.1); BASOPHILS % (AUTO) 1.1 %; EOSINOPHILS # (AUTO) 0.2 10^3/uL (0.0-0.7); EOSINOPHILS % (AUTO) 2.2 %; HGB - HEMOGLOBIN 12.7 g/dL (14.0-18.0); LYMPHOCYTES # (AUTO) 0.9 10^3/uL (1.5-3.5); LYMPHOCYTES % (AUTO) 12.6 %; MEAN CORPUSCULAR HEMOGLOBIN 31.8 pg (27.0-31.0); MEAN CORPUSCULAR HGB CONC 32.8 g/dL (32.0-36.0); MEAN CORPUSCULAR VOLUME 96.8 fL (80.0-94.0); MEAN PLATELET VOLUME 9.9 fL (7.4-11.4); MONOCYTES # (AUTO) 0.3 10^3/uL (0.0-1.0); MONOCYTES % (AUTO) 4.9 %; NEUTROPHILS # (AUTO) 5.5 10^3/uL (1.5-6.6); NEUTROPHILS % (AUTO) 78.9 %; PLT - PLATELET COUNT 151 10^3/uL (130-450); RED CELL DISTRIBUTION WIDTH 13.2 % (12.0-15.0)
[2020-03-30 11:03] LABS: ALBUMIN 4.4 g/dL (3.2-5.5); ALBUMIN/GLOBULIN RATIO 1.7 (1.0-2.2); BILIRUBIN,TOTAL 0.8 mg/dL (0.2-1.0); CALCIUM 8.9 mg/dL (8.5-10.3); CREATININE 1.6 mg/dL (0.6-1.2)
--- NOTE | 2020-03-30 11:25 | ED Physician Documentation ---
PD HPI BACK PAIN - Stated complaint Stated Complaint: LACK OF MOBILITY IN LEGS - Chief complaint Chief Complaint: General - History obtained from History obtained from: Patient - History of Present Illness Timing - onset: How many days ago (has had increased pain low back, consistent since disc injection at pain [facility] 6 weeks ago. Also now having upper abd pain and fullness, with nausea but no vomiting. Feels similar to gastroparesis, but also has had gastric outlet stricture with dilatation and botox injection years ago.) Timing - details: Gradual onset (for couple of weeks, but most notable the past 2-3 days (the abd pain). Back pain has been couple of months and not improved/worse after back injection.) Quality: Pain Associated symptoms: No: Fever, Weakness, Numbness, Incontinent of urine Review of Systems Constitutional: denies: Fever, Chills Nose: denies: Rhinorrhea / runny nose, Congestion Throat: denies: Sore throat Respiratory: denies: Cough GI: reports: Abdominal Pain, Nausea. denies: Abdominal Swelling, Vomiting, Constipation, Diarrhea : denies: Dysuria, Frequency, Incontinent Skin: denies: Rash Musculoskeletal: reports: Back pain (chronic with recent worsening) Neurologic: denies: Focal weakness, Numbness PD PAST MEDICAL HISTORY - Past Medical History Cardiovascular: Hypertension, High cholesterol, Coronary artery disease Respiratory: Sleep apnea, CPAP use Neuro: Peripheral neuropathy Endocrine/Autoimmune: Type 2 diabetes GI: None, Other (gastroparesis) : Kidney stones HEENT: None Psych: Depression Musculoskeletal: Osteoarthritis, Chronic back pain Derm: None - Past Surgical History Past Surgical History: Yes General: Colonoscopy Ortho: Shoulder arthroplasty, Spine surgery Cardiovascular: CABG HEENT: Rhinoplasty - Present Medications Home Medications: Ambulatory Orders Medication Instructions Recorded Confirmed metFORMIN [Glucophage] 500 mg PO DAILY 07/26/16 08/23/19 Atorvastatin Calcium [Lipitor] 80 mg PO QPM 08/23/19 08/23/19 Duloxetine HCl [Cymbalta] 60 mg PO DAILY 08/23/19 08/23/19 Gabapentin 800 mg PO BID 08/23/19 08/23/19 Metoprolol Succinate [Toprol Xl] 50 mg PO DAILY 08/23/19 08/23/19 Tamsulosin HCl [Flomax] 0.4 mg PO QPM 06/16/20 06/16/20 Nitroglycerin [Nitrostat] 0.4 mg SL Q5MIN PRN #100 tab.subl 08/24/19 Famotidine [Pepcid] 20 mg PO DAILY #30 tablet 03/30/20 Metoclopramide [Reglan] 10 mg PO BID #30 tablet 03/30/20 Oxycodone HCl [Oxycontin] 10 mg PO TID 03/30/20 dexAMETHasone [Decadron] 4 mg PO DAILY #7 tablet 03/30/20 - Allergies Allergies/Adverse Reactions: Allergies Allergy/AdvReac Type Severity Reaction Status Date / Time No Known Drug Allergies Allergy Verified 03/30/20 09:55 - Social History Does the pt smoke?: No Smoking Status: Never smoker Does the pt drink ETOH?: Yes Does the pt have substance abuse?: Yes - Immunizations Immunizations are current?: Yes - POLST Patient has POLST: No PD ED PE NORMAL - Vitals Vital signs reviewed: Yes - General General: Alert and oriented X 3, Well developed/nourished - HEENT HEENT: Pharynx benign - Neck Neck: Supple, no meningeal sign, No adenopathy - Cardiac Cardiac: RRR, No murmur - Respiratory Respiratory: Clear bilaterally - Abdomen Abdomen: Soft, Non distended, No organomegaly, Other (tender upper abd without percussion nor rebound. Lower abd not tender. ). No: Normal bowel sounds (diminished) - Back Back: No CVA TTP, Other (lower back filler operator lateral muscles. No rash nor sores. ) - Derm Derm: Normal color, Warm and dry Results - Vitals Vitals: Vital Signs - 24 hr 03/30/20 03/30/20 14:10 15:00 Heart Rate 61 69 Respiratory 22 16 Rate Blood Pressure 178/90 H 171/76 H O2 Saturation 100 98 Oxygen O2 Source Room air - Labs Labs: Laboratory Tests 03/30/20 03/30/20 03/30/20 10:20 10:34 10:34 WBC 7.0 RBC 4.00 L Hgb 12.7 L Hct 38.7 L MCV 96.8 H MCH 31.8 H MCHC 32.8 RDW 13.2 Plt Count 151 MPV 9.9 Neut # (Auto) 5.5 Lymph # (Auto) 0.9 L [place] # (Auto) 0.3 Eos # (Auto) 0.2 Baso # (Auto) 0.1 Absolute Nucleated RBC 0.00 Nucleated RBC % 0.0 Sodium 137 Potassium 5.2 H Chloride 103 Carbon Dioxide 26 Anion Gap 8.0 BUN 24 H Creatinine 1.6 H Estimated GFR (MDRD) 43 L Glucose 136 H Calcium 8.9 Total Bilirubin 0.8 AST 16 ALT 12 Alkaline Phosphatase 42 Total Protein 7.0 Albumin 4.4 Globulin 2.6 Albumin/Globulin Ratio 1.7 Lipase 39 Urine Color YELLOW Urine Clarity CLEAR Urine pH 7.5 Ur Specific [place] 1.020 Urine Protein 30 H Urine Glucose (UA) NEGATIVE Urine Ketones NEGATIVE Urine Occult Blood NEGATIVE Urine Nitrite NEGATIVE Urine Bilirubin NEGATIVE Urine Urobilinogen 0.2 (NORMAL) Ur Leukocyte Esterase NEGATIVE Urine RBC None Seen Urine WBC 0-3 Ur Squamous Epith Cells RARE Squamous Urine Bacteria None Seen Ur Microscopic Review INDICATED Urine Culture Comments NOT INDICATED - Rads (name of study) abd CT with oral contrast Radiology: Prelim report reviewed (gastric distension but apparent outlet obstruction with contrast into small bowel. ), See rad report PD MEDICAL DECISION MAKING - ED course Complexity details: reviewed results (contrast seems to go into small bowel okay without outlet tightness apparent. Large fullness of stomach; consider delayed gastric emptying. ), considered differential (recent problem with increased low back pain. Having problems with upper abd pain and bloating c/w prior gastric outlet obstruction. Can get CT with oral contrast. Rx for back pain. ), d/w patient Departure - Departure Disposition: 01 Home, Self Care Clinical Impression: Lumbar pain, Upper abdominal pain, Nausea Condition: Stable Record reviewed to determine appropriate education?: Yes Follow-Up: Lisa Knutson DO [Primary Care Provider] - Gerald Gould MD [Provider Admit Priv/Credential] - Prescriptions: dexAMETHasone [Decadron] 4 mg PO DAILY #7 tablet Famotidine [Pepcid] 20 mg PO DAILY #30 tablet Metoclopramide [Reglan] 10 mg PO BID #30 tablet Comments: Regarding your back, continue your current pain medicines and muscle relaxant. Also the gabapentin. To that add Decadron steroid daily for a week and see if that will help with possibly some muscle or disc inflammation. Follow-up with your pain clinic as planned. Follow-up with your primary care as well. Regarding your stomach, the CT scan did not show any obvious outlet obstruction from the stomach though there was some bloating of the stomach consistent with some gastroparesis or delayed emptying. For this we can try acid reducing medicine as well as medication to promote gastric emptying. Recheck if not improved well with your primary care in the pain clinic. You could also potentially follow-up with gastroenterology. I provided a name out of the [facility]; some of the GI from that group do clinic up here at [facility], or alternatively get a referral from your primary care. Discharge Date/Time: 03/30/20 15:20
[2020-03-30] MEDS ORDERED: SODIUM CHLORIDE 0.9% 1,000 ML IV STA (11:51)
[2020-03-30] MEDS ORDERED: DEXAMETHASONE 10 MG/ML VIAL IVP STA (11:51)
[2020-03-30] MEDS ORDERED: HYDROmorphone 1 MG/ML CARPUJECT IVP STA (11:51)
[2020-03-30] MEDS ORDERED: IOVERSOL 320 50 ML VIAL ONE (12:14)
[2020-03-30] MEDS ORDERED: IOVERSOL 320 100 ML VIAL IVP ONE ×2 (12:14→13:24)
[2020-03-30] MEDS ORDERED: IOVERSOL 320 50 ML VIAL PO ONE (13:25)
--- NOTE | 2020-03-30 14:04 | CT Report ---
PROCEDURE: Abdomen/Pelvis W INDICATIONS: upper abd pain and vomiting; eval gastric outlet CONTRAST: IV CONTRAST: Optiray 320 ml: 100 PO CONTRAST: Optiray 320 ml50 TECHNIQUE: After the administration of oral and intravenous contrast, 5 mm thick sections acquired from the diap hragms to the symphysis. 5 mm thick coronal and sagittal reformats were acquired. For radiation dos e reduction, the following was used: automated exposure control, adjustment of mA and/or kV accordin g to patient size. COMPARISON: CT abdomen and pelvis without IV contrast 08/28/2019. CT lumbar spine 07/26/2016. FINDINGS: Image quality: Excellent. ABDOMEN: Lung bases: Lung bases are clear. No pleural effusion. Heart size is is prominent. Post median ster notomy. There is oral contrast in the distal esophagus. Solid organs: Liver and spleen are normal in size and enhancement. Gallbladder is not significantly distended. Small calcified gallstones. Biliary system is non dilated. Small cysts in the head/uncin ate process of the pancreas measuring 1.7 cm and 2 cm, (08/30, ). These are vaguely visualized on prior noncontrast examination in retrospect. No pancreatic ductal dilatation is seen. No adrenal no dules. Kidneys demonstrate normal size and enhancement, without hydronephrosis. Simple cyst at the s uperior pole the right kidney measuring 1.8 cm. Mild calcification in the distal right renal artery. Peritoneum and bowel: The stomach is distended with oral contrast. The stomach was not previously dis tended on CT from August 2019. No small bowel obstruction. Diverticulosis. Normal appendix. No free flu id or air. Nodes and vessels: No retroperitoneal or mesenteric adenopathy by size criteria. Aorta and inferior vena cava are normal in size. Severe atherosclerotic plaque in the abdominal aorta, renal artery michael gins, celiac, and SMA. Miscellaneous: No ventral hernias. PELVIS: Genitourinary: Bladder wall thickness is normal. Miscellaneous: No inguinal hernias or adenopathy. Bones: No suspicious bony lesions. L4-L5 pedicle screws are intact. L4-L5 laminectomy. Intervertebra l body spacers at L3-L4 and L4-L5. Similar degenerative change. No vertebral body compression fractur es. IMPRESSION: 1. Stomach is distended with oral contrast. There is oral contrast in the distal esophagus. This is s uspicious for gastroesophageal reflux. 2. Contrast transits to the level of the mid small bowel. No small bowel obstruction. 3. Diverticulosis without diverticulitis. Normal appendix. 4. Cholelithiasis. 5. Cyst in the head of the pancreas measuring 1.7 cm and 2 cm. These could represent IPMN. -Recommend follow-up MRI with IV contrast to exclude suspicious imaging features. Reviewed by: Santhosh Sung MD on 03/30/2020 2:03 PM PST Approved by: Santhosh Sung MD on 03/30/2020 2:03 PM PST Station ID: [id number]
[2020-03-30] MEDS ORDERED: MAG HYDROX/AL HYDROX/SIMETH 30 ML UDC PO STA (14:29)
[2020-03-30] MEDS ORDERED: FAMOTIDINE 20 MG TABLET PO STA (14:29)
[2020-03-30 15:49] VITALS: BP 171/76
== END 2020-03-30 15:20 | disposition home or self-care (01) ==
LOC: ED 09:53
DX: R10.10 Upper abdominal pain, unspecified (principal); R11.0 Nausea; M54.5 Low back pain; I10 Essential (primary) hypertension; E11.9 Type 2 diabetes mellitus without complications; Z79.84 Long term (current) use of oral hypoglycemic drugs
CPT/HCPCS: 36415; 74177; 80053; 81001; 83690; 85025; 96361; 96374; 96375; 99284; A9270; J1170; Q9967; 81003; 87086

== ENCOUNTER 2020-06-01 11:59 | Outpatient (CLI) | payer MEDICARE, OTHER ==
--- NOTE | 2020-06-01 22:05 | CT Report ---
PROCEDURE: LUMBAR SPINE WO INDICATIONS: POST LAMINECTOMY SYNDROME TECHNIQUE: Noncontrast 3 mm thick sections acquired from the T12 level to the sacrum. Sagittal and coronal refo rmats were constructed. For radiation dose reduction, the following was used: automated exposure co ntrol, adjustment of mA and/or kV according to patient size. COMPARISON: CT lumbar spine 07/27/2018 FINDINGS: Image quality: There is limited visualization within portions of the spine secondary to artifact fro m posterior fusion. Bones: There is posterior fusion at L4-5 with prosthetic discs. Intervertebral spacers noted at L3-4 , new compared to 2019. Laminectomy changes are present at L4. Hardware is intact without evidence of hardware fracture or periprosthetic loosening. The right pedicular screw at L5 is at the margin of t he vertebral body cortex anteriorly. This is unchanged. There is grade 1 retrolisthesis of 6 mm of L5 on S1, 5 mm grade 1 anterolisthesis of L4 on L5, unchanged. Vacuum disc with moderate disc space narrowing is present at L5-S1, mild to moderate disc space narro wing is present L1-L2, L2-3. There are prominent reactive endplate changes with areas of subchondral sclerosis and bony destruction at L3-4 progressive compared to prior exam. Mild disc bulges are prese nt at L1-L2, L2-3, L3-4 and L5-S1. Left foraminal component of disc bulge at L3-4 is noted. There is moderate to severe spinal stenosis L2-3, progressive no gross spinal stenosis at L3-4, impro lashell no gross spinal stenosis L4-5, although significantly limited by artifact. Mild bilateral foramin al narrowing L2-3, unchanged, mild to moderate L3-4, unchanged foramina at L4-5 aren't well seen seco ndary to artifact. Mild bilateral foraminal narrowing cannot be excluded moderate bilateral foraminal narrowing at L5-S1 slightly progressive. Multilevel facet and ligamentum flavum hypertrophy are pres ent. Soft tissues: No retroperitoneal masses or hematomas. Visualized aorta is normal in caliber. IMPRESSION: 1. Extensive degenerative and postsurgical changes as above. 2. Multilevel foraminal narrowing secondary to disc bulges with contributing effect of facet/ligament um flavum arthropathy most notable at L5-S1 and progressive at this level. 3. Multilevel spinal stenosis predominately secondary to disc bulge and facet arthropathy notably pro gressive at L2-3. Reviewed by: Veena Craig MD on 06/01/2020 10:04 PM PDT Approved by: Veena Craig MD on 06/01/2020 10:04 PM PDT Station ID: [id number]
== END 2020-06-01 12:00 | disposition home or self-care (01) ==
LOC: DI 11:59
PROVIDERS: ATTEND Pain Medicine Pain Medicine
DX: M51.37 Other intervertebral disc degeneration, lumbosacral region (principal); M48.07 Spinal stenosis, lumbosacral region; M51.36 Other intervertebral disc degeneration, lumbar region; M48.061 Spinal stenosis, lumbar region without neurogenic claudication; M43.16 Spondylolisthesis, lumbar region; M43.17 Spondylolisthesis, lumbosacral region; Z98.1 Arthrodesis status

== ENCOUNTER 2021-02-05 08:00 | Outpatient (CLI) | payer MEDICARE, OTHER ==
[2021-02-05 12:00] LABS: BASOPHILS # (AUTO) 0.1 10^3/uL (0.0-0.1); BASOPHILS % (AUTO) 1.1 %; EOSINOPHILS # (AUTO) 0.4 10^3/uL (0.0-0.7); EOSINOPHILS % (AUTO) 5.8 %; HCT - HEMATOCRIT 37.3 % (42.0-52.0); HGB - HEMOGLOBIN 12.5 g/dL (14.0-18.0); LYMPHOCYTES # (AUTO) 1.2 10^3/uL (1.5-3.5); LYMPHOCYTES % (AUTO) 18.1 %; MEAN CORPUSCULAR HEMOGLOBIN 30.9 pg (27.0-31.0); MEAN CORPUSCULAR HGB CONC 33.5 g/dL (32.0-36.0); MEAN CORPUSCULAR VOLUME 92.3 fL (80.0-94.0); MEAN PLATELET VOLUME 10.2 fL (7.4-11.4); MONOCYTES # (AUTO) 0.4 10^3/uL (0.0-1.0); MONOCYTES % (AUTO) 5.9 %; NEUTROPHILS # (AUTO) 4.4 10^3/uL (1.5-6.6); NEUTROPHILS % (AUTO) 68.8 %; PLT - PLATELET COUNT 155 10^3/uL (130-450); RED BLOOD COUNT 4.04 10^6/uL (4.70-6.10); RED CELL DISTRIBUTION WIDTH 13.6 % (12.0-15.0); WHITE BLOOD COUNT 6.4 x10^3/uL (4.8-10.8)
[2021-02-05 12:28] LABS: ALBUMIN 4.3 g/dL (3.2-5.5); ALBUMIN/GLOBULIN RATIO 1.7 (1.0-2.2); ALKALINE PHOSPHATASE 46 IU/L (42-121); ALT ALANINE AMINOTRANSFERASE 19 IU/L (10-60); AST ASPARTATE AMINOTRANSFERASE 20 IU/L (10-42); BILIRUBIN,TOTAL 0.9 mg/dL (0.2-1.0); BUN - BLOOD UREA NITROGEN 31 mg/dL (6-20); CALCIUM 9.1 mg/dL (8.5-10.3); CARBON DIOXIDE - CO2 27 mmol/L (21-32); CHLORIDE 100 mmol/L (101-111); CHOL/HDL RATIO 4.9 (<5.0); CHOLESTEROL 166 mg/dL; CREATININE 1.6 mg/dL (0.6-1.2); GFR - MDRD 43 (>89); GLUCOSE 232 mg/dL (70-100); HDL CHOLESTEROL 34 mg/dL; LDL CHOLESTEROL,CALCULATED 81 mg/dL; LDL/HDL RATIO 2.4 (<3.6); SODIUM 135 mmol/L (135-145); TOTAL PROTEIN 6.9 g/dL (6.7-8.2); TRIGLYCERIDES 254 mg/dL; VLDL CHOLESTEROL 51 mg/dL
[2021-02-05 12:58] LABS: ESTIMATED AVERAGE GLUCOSE 148 mg/dL (70-100); HEMOGLOBIN A1c% 6.8 % (4.27-6.07)
[2021-02-05 13:03] LABS: MICROALBUM/CREATININE RATIO,UR 366.3 ug/mg (<30.0)
== END 2021-02-05 23:59 ==
LOC: LAB.WCP 08:00
PROVIDERS: ATTEND Family Medicine
DX: E11.22 Type 2 diabetes mellitus with diabetic chronic kidney disease (principal); N18.31 Chronic kidney disease, stage 3a
CPT/HCPCS: 36415; 80053; 80061; 82043; 82570; 83036; 83721; 85025

== ENCOUNTER 2021-05-18 19:11 | Emergency (ER) | payer MEDICARE, OTHER ==
[2021-05-18 19:38] LABS: BILIRUBIN,URINE NEGATIVE (NEGATIVE); GLUCOSE, URINE (UA) NEGATIVE (NEGATIVE); KETONES,URINE (UA) NEGATIVE (NEGATIVE); LEUKOCYTE ESTERASE, URINE NEGATIVE (NEGATIVE); NITRITE,URINE NEGATIVE (NEGATIVE); OCCULT BLOOD,URINE NEGATIVE (NEGATIVE); PH,URINE 6.5 PH (5.0-7.5); PROTEIN,URINE 100 mg/dL (NEGATIVE); UROBILINOGEN,URINE 0.2 (NORMAL) E.U./dL (NORMAL)
[2021-05-18 19:39] LABS: BASOPHILS # (AUTO) 0.1 10^3/uL (0.0-0.1); BASOPHILS % (AUTO) 0.5 %; EOSINOPHILS # (AUTO) 0.4 10^3/uL (0.0-0.7); EOSINOPHILS % (AUTO) 3.3 %; HCT - HEMATOCRIT 40.3 % (42.0-52.0); HGB - HEMOGLOBIN 13.9 g/dL (14.0-18.0); LYMPHOCYTES # (AUTO) 1.7 10^3/uL (1.5-3.5); LYMPHOCYTES % (AUTO) 13.8 %; MEAN CORPUSCULAR HEMOGLOBIN 31.7 pg (27.0-31.0); MEAN CORPUSCULAR HGB CONC 34.5 g/dL (32.0-36.0); MEAN PLATELET VOLUME 9.8 fL (7.4-11.4); MONOCYTES # (AUTO) 0.8 10^3/uL (0.0-1.0); MONOCYTES % (AUTO) 6.7 %; NEUTROPHILS # (AUTO) 9.2 10^3/uL (1.5-6.6); NEUTROPHILS % (AUTO) 75.4 %; PLT - PLATELET COUNT 193 10^3/uL (130-450); RED BLOOD COUNT 4.38 10^6/uL (4.70-6.10); RED CELL DISTRIBUTION WIDTH 12.8 % (12.0-15.0); WHITE BLOOD COUNT 12.2 x10^3/uL (4.8-10.8)
[2021-05-18 19:43] LABS: CLARITY,URINE CLEAR (CLEAR)
[2021-05-18 19:52] LABS: ALBUMIN 4.7 g/dL (3.2-5.5); ALBUMIN/GLOBULIN RATIO 1.5 (1.0-2.2); BILIRUBIN,TOTAL 0.6 mg/dL (0.2-1.0); CALCIUM 8.8 mg/dL (8.5-10.3); CREATININE 1.7 mg/dL (0.6-1.2); POTASSIUM 4.4 mmol/L (3.5-5.0); TOTAL PROTEIN 7.8 g/dL (6.7-8.2)
[2021-05-18 19:57] LABS: RBC,URINE 0-5 /HPF (0-5); SQUAMOUS EPITHELIAL CELL,UR RARE Squamous (<= Few); WBC,URINE 0-3 /HPF (0-3)
[2021-05-18 19:58] LABS: BACTERIA,URINE None Seen /HPF (None Seen)
[2021-05-18] MEDS ORDERED: SODIUM CHLORIDE 0.9% 1,000 ML IV STA (20:06)
[2021-05-18] MEDS ORDERED: IOVERSOL 320 100 ML VIAL IVP ONE ×2 (20:17→20:54)
[2021-05-18] MEDS ORDERED: ONDANSETRON 4 MG/2 ML VIAL IVP STA (20:21)
[2021-05-18] MEDS ORDERED: PANTOPRAZOLE 40 MG VIAL IVP STA (20:22)
--- NOTE | 2021-05-18 20:25 | ED Physician Documentation ---
History of Present Illness - Stated complaint Stated Complaint: ABD PX - Chief complaint Chief Complaint: Abd Pain - Additonal information Additional information: 65-year-old diabetic male presents emergency department for evaluation of sudden onset acute upper abdominal epigastric pain that began at approximately 2 PM. He describes the pain as sharp in nature. Nonradiating. He has had some nausea and dry heaves. No fevers. Denies any melena or hematochezia. Reports that he has had an ulcer in the past. He is diabetic on Metformin. Occasional cannabis use and social alcohol use. Denies NSAID use. He has received a Botox injection in his abdominal area in the past for gastroparesis but the symptoms feel different. Review of Systems Constitutional: denies: Fever, Chills Ears: reports: Reviewed and negative Nose: reports: Reviewed and negative Throat: reports: Reviewed and negative Cardiac: reports: Reviewed and negative Respiratory: reports: Reviewed and negative GI: reports: Abdominal Pain, Nausea, Vomiting. denies: Hematemesis, Bloody / black stool : reports: Reviewed and negative Skin: reports: Reviewed and negative Musculoskeletal: reports: Reviewed and negative PD PAST MEDICAL HISTORY - Past Medical History Cardiovascular: Hypertension, High cholesterol, Coronary artery disease Respiratory: Sleep apnea, CPAP use Neuro: Peripheral neuropathy Endocrine/Autoimmune: Type 2 diabetes GI: None, Other (gastroparesis) : Kidney stones HEENT: None Psych: Depression Musculoskeletal: Osteoarthritis, Chronic back pain Derm: None - Past Surgical History Past Surgical History: Yes General: Colonoscopy Ortho: Shoulder arthroplasty, Spine surgery Cardiovascular: CABG HEENT: Rhinoplasty - Present Medications Home Medications: Ambulatory Orders Medication Instructions Recorded Confirmed metFORMIN [Glucophage] 500 mg PO DAILY 07/26/16 08/23/19 Atorvastatin Calcium [Lipitor] 80 mg PO QPM 08/23/19 08/23/19 Duloxetine HCl [Cymbalta] 60 mg PO DAILY 08/23/19 08/23/19 Gabapentin 800 mg PO BID 08/23/19 08/23/19 Metoprolol Succinate [Toprol Xl] 50 mg PO DAILY 08/23/19 08/23/19 Tamsulosin HCl [Flomax] 0.4 mg PO QPM 08/23/19 08/23/19 Nitroglycerin [Nitrostat] 0.4 mg SL Q5MIN PRN #100 tab.subl 06/17/20 Famotidine [Pepcid] 20 mg PO DAILY #30 tablet 03/30/20 Metoclopramide [Reglan] 10 mg PO BID #30 tablet 03/30/20 Oxycodone HCl [Oxycontin] 10 mg PO TID 03/30/20 dexAMETHasone [Decadron] 4 mg PO DAILY #7 tablet 03/30/20 Amox/Clav 875/125 [Augmentin 1 tablet PO BID 7 Days #14 tablet 05/18/21 875/125 Tab] Omeprazole 40 mg PO DAILY #30 cap 05/18/21 Ondansetron Odt [Zofran] 4 mg TL Q6H PRN #10 tablet 05/18/21 - Allergies Allergies/Adverse Reactions: Allergies Allergy/AdvReac Type Severity Reaction Status Date / Time No Known Drug Allergies Allergy Verified 05/18/21 19:20 - Social History Does the pt smoke?: No Smoking Status: Never smoker Does the pt drink ETOH?: Yes Does the pt have substance abuse?: Yes - Immunizations Immunizations are current?: Yes - POLST Patient has POLST: No PD ED PE NORMAL - General General: Alert and oriented X 3, No acute distress, Well developed/nourished - HEENT HEENT: Atraumatic, Moist mucous membranes - Neck Neck: Supple, no meningeal sign - Cardiac Cardiac: RRR, No murmur - Respiratory Respiratory: No respiratory distress, Clear bilaterally - Abdomen Abdomen: Normal bowel sounds, Soft, Non tender (Mild tenderness in the epi epigastrium without guarding or rebound. Negative Valdes's. No CVA flank or lower abdominal tenderness elicited.) - Back Back: No CVA TTP, No spinal TTP - Derm Derm: Normal color, Warm and dry, No rash - Extremities Extremities: No deformity Results - Vitals Vitals: Vital Signs - 24 hr 05/18/21 05/18/21 05/18/21 19:15 19:38 20:53 Temperature 36.3 C L Heart Rate 81 88 60 Respiratory 24 18 16 Rate Blood Pressure 139/84 H 178/85 H 147/83 H O2 Saturation 96 99 96 05/18/21 21:31 Temperature Heart Rate 58 L Respiratory 14 Rate Blood Pressure 157/77 H O2 Saturation 96 Oxygen O2 Source Room air - Labs Labs: Laboratory Tests 05/18/21 05/18/21 05/18/21 19:25 19:34 19:34 WBC 12.2 H RBC 4.38 L Hgb 13.9 L Hct 40.3 L MCV 92.0 MCH 31.7 H MCHC 34.5 RDW 12.8 Plt Count 193 MPV 9.8 Neut # (Auto) 9.2 H Lymph # (Auto) 1.7 [place] # (Auto) 0.8 Eos # (Auto) 0.4 Baso # (Auto) 0.1 Absolute Nucleated RBC 0.00 Nucleated RBC % 0.0 Sodium 132 L Potassium 4.4 Chloride 98 L Carbon Dioxide 20 L Anion Gap 14.0 H BUN 35 H Creatinine 1.7 H Estimated GFR (MDRD) 40 L Glucose 245 H Calcium 8.8 Total Bilirubin 0.6 AST 23 ALT 19 Alkaline Phosphatase 52 Total Protein 7.8 Albumin 4.7 Globulin 3.1 Albumin/Globulin Ratio 1.5 Lipase 47 Urine Color YELLOW Urine Clarity CLEAR Urine pH 6.5 Ur Specific [place] 1.020 Urine Protein 100 H Urine Glucose (UA) NEGATIVE Urine Ketones NEGATIVE Urine Occult Blood NEGATIVE Urine Nitrite NEGATIVE Urine Bilirubin NEGATIVE Urine Urobilinogen 0.2 (NORMAL) Ur Leukocyte Esterase NEGATIVE Urine RBC 0-5 Urine WBC 0-3 Ur Squamous Epith Cells RARE Squamous Urine Bacteria None Seen Ur Microscopic Review INDICATED Urine Culture Comments NOT INDICATED - Rads (name of study) CT abd Radiology: Final report received (Nondilated fluid filled loops of small bowel filling central abdomen. Liquid stool in the colon. Findings of uncertain si gnificance but could be related to a nonspecific enterocolitis. Colonic diverticulosis without-itis. Cholelithiasis without acute cholecystitis) PD MEDICAL DECISION MAKING - ED course Complexity details: reviewed results, re-evaluated patient, d/w patient ED course: 65-year-old diabetic male presents emergency department for evaluation of acute onset upper epigastric sharp pain that began approximately 6 hours prior to arrival. Associated nausea and vomiting. He does have a history of gastroparesis remotely in the past as well stomach ulcers. Clinically has a nonperitoneal abdomen. Screening labs showed mild leukocytosis and healthy hemoglobin. No recent melena or hematochezia. I did give this gentleman some Zofran and Protonix here in the ER. Following this he did have some improvement in his symptoms. He does have known chronic kidney disease. This is unchanged though I suspect he is mildly dehydrated given a BUN of 35. He was repleted with 1 L of IV fluids here in the ER. Subsequent CT imaging of his abdomen Showed nondilated fluid-filled loops of small bowel in the central abdomen. Findings were suspicious for nonspecific enterocolitis. Patient has denied any diarrhea. These findings were discussed with the patient. He feels ready for discharge home and will be sent with a prescription for Zofran and omeprazole as I suspect the upper abdominal pain may be related to gastritis. But given the findings of possible enterocolitis I will also send a prescription for Augmentin. Patient is advised that he is not to begin taking this medication unless he develops diarrhea. Emergent return precautions were discussed with patient. He will follow up with PCP for EGD referral. Departure - Departure Disposition: Home, Self Care Clinical Impression: Upper abdominal pain Condition: Stable Record reviewed to determine appropriate education?: Yes Prescriptions: Amox/Clav 875/125 [Augmentin 875/125 Tab] 1 tablet PO BID 7 Days #14 tablet Omeprazole 40 mg PO DAILY #30 cap Ondansetron Odt [Zofran] 4 mg TL Q6H PRN #10 tablet PRN Reason: Nausea / Vomiting Comments: Ivan greco are seen today in the emergency department for upper abdominal pain. As we discussed at the bedside I suspect that you may have gastritis or stomach inflammation. In order to further diagnose this your primary care doctor should make a referral to you to GI in order for you to obtain an EGD where they put a camera in your throat to look at the lining of your stomach. Until then please begin taking the omeprazole once daily. Avoid spicy foods nicotine and caffeine. The CT scan showed just that you may have a colitis. This was an unexpected finding as you have not been having any diarrhea. I have sent a prescription for an antibiotic to the pharmacy. However you are not to fill this antibiotic unless you begin to have diarrhea. If at any point you have worsening symptoms, uncontrolled vomiting severe belly pain black or bloody stools and please return immediately to the ER for second evaluation.
--- NOTE | 2021-05-18 21:43 | CT Report ---
PROCEDURE: Abdomen/Pelvis W INDICATIONS: upper abd pain CONTRAST: IV CONTRAST: Optiray 320 ml: 100 PO CONTRAST: *NO PO CONTRAST TECHNIQUE: After the administration of intravenous contrast, 5 mm thick sections acquired from the diaphragms to the symphysis. 5 mm thick coronal and sagittal reformats were acquired. For radiation dose reducti on, the following was used: automated exposure control, adjustment of mA and/or kV according to heidi ent size. COMPARISON: CT abdomen/pelvis 03/30/2020. FINDINGS: Image quality: Excellent. ABDOMEN: Lung bases: Lung bases are clear. Heart size is normal. Sternotomy wires are partially visualized. Solid organs: Liver and spleen are normal in size and enhancement. The gallbladder is contracted and can't contains small calcified gallstones. No surrounding inflammatory changes are seen. Biliary sys tem is non dilated. Evidence cysts in the uncinate process and head of the pancreas are again seen me asuring 2 cm and 1.7 cm (image 28 series 6). No adrenal nodules. Kidneys demonstrate normal size and enhancement, without hydronephrosis. Hypodense lesion in the superior pole of the right kidney most likely represents a cyst. Peritoneum and bowel: Multiple diverticula are seen in the colon without signs of acute diverticuliti s. Mildly prominent but nondilated fluid-filled loops of small bowel are seen in the central abdomen. Liquid stool is seen in the colon. There is trace nonspecific free fluid in the pelvis. Normal appen salo. No pneumoperitoneum. Nodes and vessels: No retroperitoneal or mesenteric adenopathy by size criteria. Aorta and inferior vena cava are normal in size. Moderate aortic atherosclerotic calcifications. Miscellaneous: No ventral hernias. PELVIS: Genitourinary: Bladder wall thickness is normal. Miscellaneous: No inguinal hernias or adenopathy. Bones: No suspicious bony lesions. No vertebral body compression fractures. Postsurgical changes a re seen throughout the lumbar spine from prior laminectomies and posterior fusion. IMPRESSION: 1.Nondilated fluid-filled loops of small bowel are seen filling the central abdomen with mild mucosal hyperenhancement. Liquid stool is also noted in the colon. Findings are of uncertain significance bu t could be related to a nonspecific enterocolitis. 2.Colonic diverticulosis. 3.Cholelithiasis without signs of acute cholecystitis. 4.Trace nonspecific free fluid in the pelvis, possibly reactive. 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 Reviewed by: Nnamdi Doimnguez MD on 05/18/2021 9:42 PM PST Approved by: Nnamdi Dominguez MD on 05/18/2021 9:42 PM PST Station ID: [id number]
[2021-05-18 22:00] VITALS: BP 155/77
== END 2021-05-18 22:04 | disposition home or self-care (01) ==
LOC: ED 19:11
DX: R10.13 Epigastric pain (principal); E11.22 Type 2 diabetes mellitus with diabetic chronic kidney disease; I12.9 Hypertensive chronic kidney disease with stage 1 through stage 4 chronic kidney disease, or unspecified chronic kidney disease; N18.9 Chronic kidney disease, unspecified; Z79.84 Long term (current) use of oral hypoglycemic drugs; E86.0 Dehydration
CPT/HCPCS: 36415; 74177; 80053; 81001; 83690; 85025; 96374; 99284; Q9967; 81003; 87086

== ENCOUNTER 2022-12-08 16:44 | Outpatient (CLI) | payer MEDICARE ==
--- NOTE | 2022-12-09 17:43 | XRAY Report ---
PROCEDURE: Foot 3 View RT INDICATIONS: PAIN IN RIGHT FOOT TECHNIQUE: 3 views of the foot were acquired. COMPARISON: None. FINDINGS: Bones: Post-ORIF changes are seen in distal fibular shaft/lateral malleolus. There is mild to modera te hallux valgus and hindfoot valgus. No acute fracture or dislocation. Osteoarthritic changes are no audra throughout right foot. Small plantar and dorsal calcaneal enthesophytes are seen. No suspicious b gary lesions. Soft tissues: No suspicious soft tissue calcifications or masses. IMPRESSION: No acute right foot fracture or dislocation. Prior ORIF of distal fibular shaft/lateral malleolus. Right foot osteoarthritis. Calcaneal enthesophy germán. Reviewed by: Al Hatch MD on 12/09/2022 5:42 PM PDT Approved by: Al Hatch MD on 12/09/2022 5:42 PM PDT Station ID: [id number]
--- NOTE | 2022-12-09 17:43 | XRAY Report ---
PROCEDURE: Knee 3 View RT INDICATIONS: PAIN IN RIGHT KNEE, PAIN IN THE LEFT FOOT TECHNIQUE: 3 views of the right knee(s) were acquired. COMPARISON: None. FINDINGS: Bones: No fractures or dislocations. Mild tricompartmental osteoarthritis is seen. Slight lateral t ilt of patella is noted. No suspicious bony lesions. Soft tissues: Small knee joint effusion. No suspicious soft tissue calcifications or masses. IMPRESSION: No acute bony abnormality. Slight lateral tilting of patella. Mild tricompartmental osteoarthritis. Small joint effusion. Reviewed by: Al Hatch MD on 12/09/2022 5:42 PM PDT Approved by: Al Hatch MD on 12/09/2022 5:42 PM PDT Station ID: [id number]
== END 2022-12-08 16:45 | disposition home or self-care (01) ==
LOC: DI 16:44
PROVIDERS: ATTEND Internal Medicine
DX: M17.11 Unilateral primary osteoarthritis, right knee (principal); M25.461 Effusion, right knee; M19.071 Primary osteoarthritis, right ankle and foot; M77.31 Calcaneal spur, right foot; S82.61XD Displaced fracture of lateral malleolus of right fibula, subsequent encounter for closed fracture with routine healing

== ENCOUNTER 2023-02-26 10:29 | Outpatient (CLI) | payer MEDICARE ==
--- NOTE | 2023-02-26 12:14 | DEXA Report ---
PROCEDURE: Dexa Spine and/or Hip INDICATIONS: OSTEOARTHRITIS TECHNIQUE: Dual energy x-ray absorptiometry (DEXA) was performed in the regions detailed below. The l umbar spine instrumentation. COMPARISON: None. FINDINGS: Lumbar Spine: Not evaluated due to significant instrumentation. Left Femoral Neck: Bone Mineral Density 1.030 g/cm/cm, T score -0.3. Normal Left Total Hip: Bone Mineral Density 1.099 g/cm/cm,T score 0.0. Normal (T score greater or equal to -1.0: NORMAL) (T score from -1.1 to -2.4: OSTEOPENIA) (T score less than or equal to -2.5 to: OSTEOPOROSIS) IMPRESSION: Normal bone mineralization Patients with diagnosis of osteoporosis or osteopenia should have regular bone mineral density assess ment. For those eligible for Medicare, routine testing is allowed once every 2 years. Testing frequ ency can be increased for patients who have rapidly progressing disease or for those who are receivin g medical therapy to restore bone mass. Reviewed by: Stevie Hodgson MD on 02/26/2023 11:12 AM [facility] Approved by: Stevie Hodgson MD on 02/26/2023 11:12 AM [facility] Station ID: [id number]
== END 2023-02-26 10:30 | disposition home or self-care (01) ==
LOC: DI 10:29
PROVIDERS: ATTEND Internal Medicine
DX: M19.90 Unspecified osteoarthritis, unspecified site (principal)

== ENCOUNTER 2023-09-07 16:16 | Outpatient (CLI) | payer MEDICARE ==
--- NOTE | 2023-09-07 19:38 | XRAY Report ---
PROCEDURE: Lumbar Spine 2-3V INDICATIONS: BACK PAIN TECHNIQUE: 2 views of the lumbar spine were acquired. COMPARISON: CT lumbar spine dated 06/01/2020. FINDINGS: Surgical change: Interval replacement of previous surgical hardware and placement of bilateral alex an d pedicle screw fixation spanning from L1 through L5. No evidence of hardware failure or loosening. R emote posterior laminectomy at L4-L5. No acute bony abnormality. Bones: 5 [id number] vertebrae are present. There is normal bony alignment. No vertebral body co mpression fractures. No suspicious bony lesions. Soft tissues: Overlying bowel gas pattern is normal. No suspicious soft tissue calcifications. IMPRESSION: Interval resurgery. Expected appearance of orthopedic surgical hardware. No acute bony abnormality. Reviewed by: Eriberto Love MD on 09/07/2023 7:36 PM PDT Approved by: Eriberto Love MD on 09/07/2023 7:36 PM PDT Station ID: [id number]
== END 2023-09-07 16:17 | disposition home or self-care (01) ==
LOC: DI 16:16
PROVIDERS: ATTEND Internal Medicine
DX: M54.50 Low back pain, unspecified (principal); Z98.1 Arthrodesis status